=== PATIENT | female | born 1985 | race Caucasian/White ===

== ENCOUNTER 2018-09-12 16:46 | Emergency (ER) | payer BC, SELFPAY ==
[2018-09-12 16:47] VITALS: BP 156/80; PULSE 112; RESP 16; TEMP 36.3; O2SAT 98; BMI 26.0
--- NOTE | 2018-09-12 17:57 | ED.DCSUM_ITS ---
- ER Visit Summary Date of Service: 09/12/18 Chief Complaint: Food impaction History of Present Illness: The patient is a 33 F presenting for evaluation due to an esophageal food impaction. Patient reports that last night she was eating some meat, and at about 9 PM she felt as if it became impacted in her esophagus. Patient states that she tried drinking large amounts of pop, and multiple other home remedies and this has not been able to be alleviated. She reports that she is able to tolerate fluids and her saliva but she is not able to eat anything as she immediately vomits it back up. Patient reports that she had an episode about 2 months ago that spontaneously resolved. She has had to have endoscopies in the past as well as dilation of her cardiac sphincter. Physical Examination: Vital signs are within normal limits, patient is afebrile. General: Patient is well-nourished well-developed and in no acute distress. Head: Normocephalic, atraumatic Eyes: Pupils equal round and reactive bilaterally, extra occular motion intact bialterally ENT: Moist mucous membranes Neck: Supple, no lymphadenopathy, no JVD, no meningismus CVS: Heart regular rate and rhythm, no murmurs, rubs or gallops, radial pulses 2+ bilaterally Resp: Respirations nondistressed, lung sounds clear bilaterally Abdomen: Soft, nontender, nondistended, no palpable masses, normal bowel sounds Back: Nontender Extremities: Nontender, atraumatic, active full range of motion, no peripheral edema Skin: warm, no rashes, no petechia Neuro: Alert and oriented x 4, CN 2-12 intact, no lateralizing neurological defecits Psyc: Normal affect Test Results: None indicated Emergency Department Course and Treatment: Patient presented for evaluation secondary to a esophageal food impaction. I attempted to have the patient drink roni keren as well as tried glucagon x2 and was unable to alleviate her impaction. Patient is able to take small sips of fluid, but anytime she takes anything more than that she has vomiting. I do believe that she requires retrieval. I discussed this with Dr. Mena who states that given the fact that the patient has a history of stricture he is uncomfortable with treating the patient at this facility. I discussed the patient with [facility] who declined to accept the patient. I discussed the patient with [facility] who did accept the patient. Patient will be transferred by private vehicle. Disposition: Transfer Impression: 1. Esophageal food impaction This note was generated with Submittable dictation software. It may contain incorrect words, spelling, and punctuation that were not noted in review of the chart prior to signing ED Disposition - Plan for ED Patient: Chief Complaint: Foreign Body Referrals: Omid Gar MD [Primary Care Provider] -
[2018-09-12] MEDS: Glucagon 1 MG/ML Syringe IV ×2 (18:01→19:19)
[2018-09-12 20:52] VITALS: BP 126/86; PULSE 94; RESP 16; O2SAT 99
== END 2018-09-12 21:08 | disposition short-term general hospital (02) ==
PROVIDERS: Emergency Provider Emergency Medicine; Family Provider Family Medicine; PCP Family Medicine
DX: T18.128A Food in esophagus causing other injury, initial encounter (principal)
CPT/HCPCS: 96374; 96376; 99283; A4216; J1610

== ENCOUNTER → 2020-03-05 15:01 | Outpatient (CLI) | payer BC, SELFPAY ==
--- NOTE | 2020-03-05 15:04 | RAD_ITS ---
STUDY: X-RAY CHEST REASON FOR EXAM: Female, 34 years old. Left anterior lower chest pain x 4 weeks TECHNIQUE: PA and lateral views of the chest. COMPARISON: October 24, 2010, March 04, 2013 and January 14, 2016 FINDINGS: There is no new focal consolidation. Normal size heart. Normal mediastinum and malcolm. Normal visualized pulmonary arteries. Normal visualized aortic arch and descending thoracic aorta. Normal visualized thoracic spine. Normal visualized ribs, clavicles, and shoulders. There is no demonstrated abnormality of the visualized soft tissue structures of the upper abdomen. RAD/Chest PA and Lateral IMPRESSION: No acute cardiopulmonary process. Electronically Signed: Mary Howard MD at 16:57 EDT Tel , Service support ,
== END ==
PROVIDERS: PCP Family Medicine; Referring Provider Family Medicine; Visit Provider Family Medicine
DX: R07.9 Chest pain, unspecified (principal)
CPT/HCPCS: 71046

== ENCOUNTER 2020-11-25 23:12 | Emergency (ER) | payer BC, SELFPAY ==
[2020-11-25 23:13] VITALS: BP 119/39; PULSE 112; RESP 18; TEMP 36.1; O2SAT 98; BMI 27.4
--- NOTE | 2020-11-25 23:29 | EKG12_ITS ---
Test Reason : DYSRHYTHMIA Blood Pressure : / mmHG Vent. Rate : 095 BPM Atrial Rate : 095 BPM P-R Int : 148 ms QRS Dur : 084 ms QT Int : 346 ms P-R-T Axes : 055 060 043 degrees QTc Int : 434 ms Normal sinus rhythm Nonspecific ST abnormality Abnormal ECG Confirmed by STEPH ALARCON, JOSEPH ([id number]), managing editor MAR FERRARI ([id number]) on 11/27/2020 8:27:54 AM Referred By: Confirmed By:JOSEPH CHOI MD
--- NOTE | 2020-11-25 23:33 | ED.DCSUM_ITS ---
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 She had an episode of chest pain that she noted this morning upon awakening. Pain was midsternal and described as an aching sensation with no associated symptoms or radiation. Duration of pain was 15 minutes this evening she had several episodes of sharp left parasternal discomfort. Initially there was no associated symptoms. Upon reflecting patient states she felt nauseous and attributed to her anxiety. She states she is very anxious. She is concerned this is her heart. She denies fever, chills night sweats. She denies heartburn or indigestion. She denies food intolerance. The pain is not precipitated by anything nor is it exacerbated by anything. She denies black or maroon stool. She does have history of GERD. She denies history of PE or DVT. She is on no hormonal therapy. Prior similar symptoms: Yes Recent Illness/Hospitalization: No - Past Medical History (1) History of gastroesophageal reflux (GERD) Status: Acute (2) History of anxiety Status: Acute Past Medical History - Allergies and Home Meds Allergies/Adverse Reactions: Allergies amoxicillin trihydrate [From Augmentin] Adverse Reaction (Verified 11/25/20 23:16) Diarrhea potassium clavulanate [From Augmentin] Adverse Reaction (Verified 11/25/20 23:16) Diarrhea Primary Care Physician: Huber Pompa MD [Primary Care Provider] - Prior records reviewed: Yes Surgical History: noncontributory Lives: Spouse/ Significant Other Smoking Status: Former smoker Alcohol: None Drugs: None Review of Systems General: Denies: Chills, Fever, Malaise, Subjective, Sweats Eyes: Denies: Visual changes - bilaterally, Blurred Vision - bilaterally ENT: Denies: Bilateral ear pain, Rhinorrhea, Sore throat Cardiovascular: Reports: Chest pain. Denies: Palpitations, Heart racing Respiratory: Denies: Dyspnea, Cough, Dyspnea on exertion, Orthopnea, Paroxysmal nocturnal dyspnea Gastrointestinal: Reports: Nausea. Denies: Abdominal pain, Vomiting, Diarrhea, Melena, Hematochezia Genitourinary: Denies: Dysuria, Hematuria, Frequency Musculoskeletal: Denies: Myalgias, Arthralgias, Neck pain, Back pain, Swelling, Extremity Pain Skin: Denies: Rash, Wounds Neurological: Denies: Headache, Weakness, Numbness Psych: Reports: Anxiety. Denies: Depression Physical Exam Vital Signs/Narrative: Vital Signs Temp Pulse Resp BP Pulse Ox 11/25/20 23:13 97.0 F L 112 H 18 119/39 L 98 Inital Vital Signs reviewed: Yes General: Well nourished, Well developed, Acute Distress - Tearful and anxious Head: Normocephalic, Atraumatic Eyes: Perrl, EOMI. Negative for: Pale conjunctiva, Scleral icterus ENT: Moist mucous membranes, No rhinorrhea Neck: Supple, Nontender, No lymphadenopathy, No JVD Cardiovascular: Regular rate, Regular rhythm, No murmurs, Normal S1, Normal S2 Respiratory: No distress, CTA bilaterally, Chest nontender Abdomen: Soft, Nontender, Nondistended, Normal bowel sounds, No masses Back: Nontender, Normal Inspection Extremities: Nontender, No edema, - - There is no asymmetry, swelling, discoloration, leg vein distention, palpable cords or tenderness along the distribution of the deep venous system. Skin: Normal color, No rash, No Trauma. Negative for: Cyanosis, Diaphoresis, Jaundice Neurological: Alert, Oriented x3, Cranial nerves II-XII grossly intact, Normal Strength, Normal Sensation Psychological: Tearful, - - Affect is blunted and at times labile, becomes tearful and states I am anxious . Diagnostic/Tx/Re-eval Laboratory Results 11/25/20 23:40 Troponin I < 0.015 - EKG Initial EKG Interpretation: Sinus Rhythm - Normal sinus rhythm with a ventricular rate of 95. W[place] interval is 148 ms. QRS duration 84 ms. QT duration 346 ms. [place] is normal. - Medical Decision Making Differential diagnosis would include reflux, chest pain of unknown etiology, cardiac chest pain and anxiety. Will obtain EKG. Patient is not tachycardic and is PERC negative. Therefore, D-dimer was not obtained. Troponin was obtained. Patient is nervous that this is her heart. She was informed that an EKG would will be done as well as troponin. If these 2 are negative with a heart score of 0 that this essentially rules out cardiac etiology. There is no family history. She has no risk factors. ED Disposition - Plan for ED Patient: Disposition: Home or Assisted Living Diagnosis: Non-cardiac chest pain, Anxiety reaction Instructions: ED Chest Pain, Noncardiac Referrals: Huber Pompa MD [Primary Care Provider] - As Needed
[2020-11-26 00:21] VITALS: BP 111/69; PULSE 80; RESP 16; O2SAT 99
== END 2020-11-26 00:27 | disposition home or self-care (01) ==
PROVIDERS: Emergency Provider Emergency Medicine; PCP Family Medicine
DX: R07.2 Precordial pain (principal); F41.1 Generalized anxiety disorder; K21.9 Gastro-esophageal reflux disease without esophagitis; Z87.891 Personal history of nicotine dependence
CPT/HCPCS: 84484; 93005; 99284; A4216

== ENCOUNTER → 2021-02-15 09:47 | Outpatient (CLI) | payer BC, SELFPAY ==
[2021-02-15 12:31] LABS: AST(SGOT) 13 U/L (15-37); Alanine Aminotransfer ALT/SGPT 17 U/L (13-56); Albumin, Serum 3.6 g/dL (3.2-5.0); Alkaline Phosphatase 51 U/L (45-117); Anion Gap 4 (5-15); BUN 9 mg/dL (7-18); BUN/Creat Ratio 12.5 RATIO (10-20); Calcium,Total 8.7 mg/dL (8.5-10.1); Chloride 107 mmol/L (98-107); Cholesterol 362 mg/dL (200); Creatinine, Serum 0.72 mg/dL (0.55-1.02); EST Glomerular Filtration Rate 98 mL/min (>60); Est Glom Filt Rate - Afr Amer 118 mL/min (>60); Globulin 3.6 g/dL (2.2-4.2); Glucose 85 mg/dL (74-106); High Density Lipoprotein 48 mg/dL; Potassium 3.7 mmol/L (3.5-5.1); Protein, Total 7.2 g/dL (6.4-8.2); Sodium Level 139 mmol/L (136-145); Thyroid Stim Hormone (TSH) 1.42 uIU/mL (0.358-3.74); Triglycerides 70 mg/dL; Very Low Density Lipoprotein 14 mg/dL (5-40)
== END ==
PROVIDERS: PCP Family Medicine; Referring Provider Family Medicine; Visit Provider Family Medicine
DX: I10 Essential (primary) hypertension (principal); R73.02 Impaired glucose tolerance (oral); E78.00 Pure hypercholesterolemia, unspecified; E55.9 Vitamin D deficiency, unspecified; E66.9 Obesity, unspecified
CPT/HCPCS: 36415; 80053; 80061; 84443

== ENCOUNTER 2021-03-24 16:57 | Emergency (ER) | payer BC, SELFPAY ==
[2021-03-24 16:58] VITALS: BP 151/139; PULSE 100; RESP 16; TEMP 36.1; O2SAT 99; BMI 26.5
--- NOTE | 2021-03-24 17:21 | CT_ITS ---
INDICATION: Kidney Stone; L flank pain EXAMINATION: CT Abdomen And Pelvis W/O Contrast Injection TECHNIQUE: Helically acquired images were obtained of the abdomen and pelvis without the use of IV contrast. A radiation dose optimization technique was used for this scan. Oral contrast: None. COMPARISON: 01/28/2015 FINDINGS: Evaluation of the solid organs and vascular structures is limited without intravenous contrast. Visualized lung bases: Unremarkable Liver: Unremarkable Gallbladder: Unremarkable Spleen: Unremarkable Pancreas: Unremarkable Adrenal Glands: Unremarkable Kidneys: Subtle hyperattenuation of the bilateral renal medullas. Few bilateral 1 mm nonobstructing stones. No hydronephrosis. Vasculature: Unremarkable GI Tract: Unremarkable Lymphadenopathy: None Peritoneum: No ascites. Bladder: Unremarkable Reproductive organs: Bilateral tubal ligations. Retroverted uterus. Bones/Soft tissues: No suspicious osseous or soft tissue lesions CT/Abdomen/Pelvis without Cont IMPRESSION: Few bilateral 1 mm nonobstructing stones. No hydronephrosis. Subtle hyperattenuation of the bilateral renal medullas could be an indicator of medullary nephrocalcinosis. Electronically Signed: Delta Hector MD at 18:49 EDT Tel , Service support ,
--- NOTE | 2021-03-24 17:22 | EDS_ITS ---
HPI HPI - GI History of Present Illness Chief Complaint: Nausea/Vomiting Informant: patient Abdominal Pain/Flank Pain Onset: Today Context: Sudden Onset Timing: Continuous and Waxes and wanes Quality: Aching Location: Left Flank Current Severity: 02/27 Maximum Severity: Moderate Worsened by: Nothing; Not Worsened By Movement Relieved by: Nothing Nausea/Vomiting/Emesis GI Symptom: Positive for Nausea and Vomiting Onset: Weeks (1) Quality: Positive for Nonbilious Severity: Mild (w/r/t vtg; mostly nauseated) Diarrhea/Melena/Hematochezia GI Symptom: Negative for Diarrhea, Melena and Hematochezia Associated Symptoms Associated Symptoms: Negative for Dysuria, Frequency, Hematuria and Urgency Narrative Narrative: Patient states she ran out of her reflux medication about 3 weeks ago, a week ago she started feeling nauseated and was able to get her reflux me dication again and start taking it, she has been feeling epigastric burning from time to time and taking Tums which has been helping that. Today she started having pain in her left low back without radiation that is fairly prominent all of a sudden, she has had a kidney stone in the past but unsure if this is related or similar. She was resting at the time when it started. She denies any overuse of the muscles in this area or injury that could obviously explain this. [facility] Medical History (Updated 03/24/21 @ 19:[address] Bart Cifuentes MD) Anxiety Carpal tunnel syndrome Former smoker GERD (gastroesophageal reflux disease) Hyperlipemia Kidney stone Home Medications escitalopram oxalate 10 mg PO DAILY 11/25/20 [History Last Taken Unknown] pantoprazole 40 mg PO DAILY 11/25/20 [History Last Taken Unknown] sumatriptan succinate 50 mg PO PRN PRN 11/25/20 [History Last Taken Unknown] promethazine 25 mg PO Q6H PRN #20 tab 03/24/21 [Rx Last Taken Unknown] Allergy/AdvReac Type Severity Reaction Status Date / Time amoxicillin trihydrate AdvReac Diarrhea Verified 03/24/21 17:00 [From Augmentin] potassium clavulanate AdvReac Diarrhea Verified 03/24/21 17:00 [From Augmentin] Surgical History History of Social History Smoking Status: Former smoker ROS ROS ED Constitutional Constitutional ED: Denies chills or fever(s) Eyes Eyes: Denies change in vision or diplopia ENT ENT ED: Denies rhinorrhea or sore throat Cardiovascular Cardiovascular: Denies chest pain or palpitations Respiratory/Chest Respiratory/Chest: Denies cough or dyspnea Gastrointestinal Gastrointestinal: Reports abdominal pain, nausea and vomiting; Denies diarrhea Genitourinary Genitourinary ED: Reports low back pain; Denies difficulty urinating, dysuria or hematuria Musculoskeletal Musculoskeletal: Reports back pain; Denies neck pain Integumentary Denies abscess or rash Neurologic Neurologic: Denies headache(s), paresthesias or weakness Psychiatric Psychiatric: Denies anxiety or suicidal thoughts EXAM Physical Exam Const Vital Signs: 03/24/21 16:58 Temperature 97 F L Temperature Source Temporal Pulse Rate 100 Respiratory Rate 16 Blood Pressure 151/139 H Blood Pressure Mean 143 Pulse Ox 99 Oxygen Delivery Method Room Air Positive well nourished and well developed General Appearance ED: well developed and NAD HEENT Reports moist mucous membranes normocephalic and atraumatic Eyes PERRL and EOMs intact bilaterally Neck full ROM and supple Resp normal respiratory effort and clear to auscultation bilaterally Cardio regular rate, regular rhythm and no murmurs GI non-distended Auscultation: normoactive bowel sounds Palpation: soft and tender epigastric (Mildly. No other tenderness.) Back/Spine no CVA tenderness General Back: other FROM Extremity normal to inspection General Extremety ED: Negative for edema, pulses abnormal or tenderness General Extremity: Negative for edema or pulses abnormal Neuro oriented x3, CN's II-XII intact bilaterally and no sensory deficits noted Sensorium / Orientation: awake and alert Motor Exam: strength 5/5 throughout Skin no rashes or lesions noted and no wounds MDM MDM MDM Narrative Medical decision making narrative: CT as below, nonobstructing stones bilaterally. It is possible that her low back pain is musculoskeletal. No acute abnormalities on CT or obstructing stones or hydronephrosis. Urinalysis negative, ruling out infectious etiologies, patient was treated here with analgesics and is feeling better, will prescribe her some antiemetics and advise close outpatient follow-up and continue her PPI. Lab Data Attestation: I reviewed the patient's lab results. Labs: Laboratory Results - last 24 hr 03/24/21 03/24/21 03/24/21 17:35 17:35 17:35 WBC 5.2 RBC 4.00 L Hgb 12.1 Hct 36.7 L MCV 91.8 MCH 30.3 MCHC 33.0 RDW Std Deviation 44.7 H RDW Coeff of Autumn 13.2 Plt Count 237 MPV 11.1 Immature Gran % (Auto) 0.200 Neut % (Auto) 65.2 Lymph % (Auto) 24.8 [place] % (Auto) 8.8 Eos % (Auto) 0.6 Baso % (Auto) 0.4 Absolute Neuts (auto) 3.4 Absolute Lymphs (auto) 1.30 Nucleated RBC % 0 Sodium 138 Potassium 3.5 Chloride 105 Carbon Dioxide 28.0 Anion Gap 5 BUN 7 Creatinine 0.70 Estim Creat Clear Calc 92.79 Est GFR (MDRD) Af Amer 123 Est GFR (MDRD) Non-Af 102 BUN/Creatinine Ratio 10.1 Glucose 95 Calcium 9.4 Serum , Qual NEGATIVE Urine Color Urine Clarity Urine pH Ur Specific [place] Urine Protein Urine Glucose (UA) Urine Ketones Urine Occult Blood Urine Nitrite Urine Bilirubin Urine Urobilinogen Ur Leukocyte Esterase Urine RBC Urine WBC Ur Squamous Epith Cells Urine Bacteria Urine Mucus 03/24/21 19:42 WBC RBC Hgb Hct MCV MCH MCHC RDW Std Deviation RDW Coeff of [place] Plt Count MPV Immature Gran % (Auto) Neut % (Auto) Lymph % (Auto) [place] % (Auto) Eos % (Auto) Baso % (Auto) Absolute Neuts (auto) Absolute Lymphs (auto) Nucleated RBC % Sodium Potassium Chloride Carbon Dioxide Anion Gap BUN Creatinine Estim Creat Clear Calc Est GFR (MDRD) Af Amer Est GFR (MDRD) Non-Af BUN/Creatinine Ratio Glucose Calcium Serum , Qual Urine Color Yellow Urine Clarity Clear Urine pH 6.5 Ur Specific [place] 1.010 Urine Protein Negative Urine Glucose (UA) Normal Urine Ketones 50 H Urine Occult Blood Negative Urine Nitrite Negative Urine Bilirubin Negative Urine Urobilinogen Normal Ur Leukocyte Esterase Negative Urine RBC 0 SEEN Urine WBC 0 SEEN Ur Squamous Epith Cells 0-5 SEEN Urine Bacteria 0 SEEN Urine Mucus 0 SEEN Radiography Diagnostic Testing: Radiology Impression Abdomen/Pelvis CT 03/24/21 17:21 IMPRESSION: Few bilateral 1 mm nonobstructing stones. No hydronephrosis. Subtle hyperattenuation of the bilateral renal medullas could be an indicator of medullary nephrocalcinosis. Electronically Signed: Delta Hector MD at 18:49 EDT Tel , Service support , Discharge Plan Triage Chief Complaint: Nausea/Vomiting ED Provider: Bart Cifuentes Dx/Rx/DC Orders Clinical Impression: Acute left-sided low back pain, History of gastroesophageal reflux (GERD), Bilateral nephrolithiasis, Epigastric abdominal pain Instructions: ED Epigastric Pain (Uncertain Cause) Prescriptions: New promethazine 25 mg tablet 25 mg PO Q6H PRN (Reason: nausea and vomiting) Qty: 20 RF: 0 No Action sumatriptan succinate 50 MG tablet 50 mg PO PRN PRN (Reason: Migraine Symptoms) RF: 0 pantoprazole 40 MG tablet 40 mg PO DAILY RF: 0 escitalopram oxalate 10 MG tablet 10 mg PO DAILY RF: 0 Primary Care Provider: Huber Pompa Referrals: Huber Pompa MD [Primary Care Provider] - 3-5 Days if not improving Disposition Disposition: Home, self care
[2021-03-24] MEDS: 0.9% Normal Saline 1,000 ML 250 ML IV (17:31)
[2021-03-24] MEDS: Ondansetron 4 MG/2 ML Vial IV (17:41)
[2021-03-24] MEDS: Ketorolac 15 MG/ML Vial IV (17:41)
[2021-03-24 17:48] LABS: Absolute Neutrophil Count 3.4 X10^3/uL (2.0-7.7); Basophil# 0.02 X10^3/uL; Basophil% 0.4 % (0-1); Eosinophil# 0.03 X10^3/uL; Eosinophils% 0.6 % (0-5); Hematocrit 36.7 % (37-47); Hemoglobin 12.1 g/dL (12.0-15.0); Lymphocyte % 24.8 % (19-41); Mean Corpuscular Hgb 30.3 pg (27.0-32.0); Mean Corpuscular Volume 91.8 fL (81-99); Mean Platelet Vol. 11.1 fl (6.2-12.0); Monocyte# 0.46 X10^3/uL; Monocyte% 8.8 % (0-10); NRBC Flagged by Analyzer 0 % (0-5); Neutrophil # 3.42 X10^3/uL (2.7-7.7); Neutrophil % 65.2 % (47-70); Platelet Count 237 K/mm3 (150-450); RBC Distribution Width CV 13.2 % (11.6-14.6); RBC Distribution Width SD 44.7 fl (35.1-43.9); White Blood Count 5.2 K/mm3 (4.4-11.0)
[2021-03-24 18:03] LABS: Anion Gap 5 (5-15); BUN 7 mg/dL (7-18); BUN/Creat Ratio 10.1 RATIO (10-20); Calcium,Total 9.4 mg/dL (8.5-10.1); Chloride 105 mmol/L (98-107); EST Glomerular Filtration Rate 102 mL/min (>60); Est Glom Filt Rate - Afr Amer 123 mL/min (>60); Estimated Creatinine Clearance 92.79 ml/min; Glucose 95 mg/dL (74-106); Potassium 3.5 mmol/L (3.5-5.1); Sodium Level 138 mmol/L (136-145)
[2021-03-24 18:08] LABS: Internal QC Validated? YES +Cl - CLEAR BKGD; Pregnancy, Serum, hCG Quali. NEGATIVE Negative
[2021-03-24 19:48] LABS: Bacteria 0 SEEN /hpf (None Seen); Mucous, Urine 0 SEEN /hpf (<or=2+); Red Blood Cells-Urine 0 SEEN /hpf (0-5); White Blood Cells 0 SEEN /hpf (0-5)
[2021-03-24 19:51] LABS: Color, Urine Yellow (Yellow); Glucose, Dipstick Normal (Normal); Ketone-Dipstick 50 mg/dl (Negative); Leukocyte Esterase-Dipstick Negative /ul (Negative); Nitrite-Dipstick Negative (Negative); Occult Blood-Urine Negative /ul (Negative); Protein-Dipstick Negative (Negative); Urine Bilirubin Dipstick Negative (Negative); Urine Clarity Clear (Clear); Urine Urobilinogen Normal (Normal); Urine pH 6.5 (5.0 - 8.0)
[2021-03-24 20:04] LABS: Squamous Epithelial Cells - UA 0-5 SEEN /hpf (5-10)
[2021-03-24 20:42] VITALS: BP 132/71; PULSE 92; RESP 16; O2SAT 99
== END 2021-03-24 20:43 | disposition home or self-care (01) ==
PROVIDERS: Emergency Provider Emergency Medicine; PCP Family Medicine
DX: M54.5 Low back pain (principal); N20.0 Calculus of kidney; K21.9 Gastro-esophageal reflux disease without esophagitis; Z87.442 Personal history of urinary calculi; Z87.891 Personal history of nicotine dependence
CPT/HCPCS: 74176; 80048; 81001; 84703; 85025; 96361; 96374; 96375; 99284; J7030; A4216; J2405

== ENCOUNTER → 2021-03-29 09:13 | Outpatient (CLI) | payer BC, SELFPAY ==
[2021-03-24 16:58] VITALS: BMI 26.5
[2021-03-29 09:59] LABS: Hematocrit 36.9 % (37-47); Hemoglobin 12.2 g/dL (12.0-15.0); Mean Corp Hgb Conc 33.1 g/dL (32-36); Mean Corpuscular Hgb 30.8 pg (27.0-32.0); Mean Corpuscular Volume 93.2 fL (81-99); Mean Platelet Vol. 11.4 fl (6.2-12.0); Platelet Count 232 K/mm3 (150-450); RBC Distribution Width CV 13.1 % (11.6-14.6); RBC Distribution Width SD 44.8 fl (35.1-43.9); Red Blood Count 3.96 M/mm3 (4.2-5.4); White Blood Count 4.7 K/mm3 (4.4-11.0)
[2021-03-29 11:11] LABS: Cholesterol 314 mg/dL (200); Ferritin 7 ng/mL (8-252); High Density Lipoprotein 44 mg/dL; Iron 127 ug/dL (50-170); Triglycerides 94 mg/dL; Very Low Density Lipoprotein 19 mg/dL (5-40)
== END ==
PROVIDERS: PCP Family Medicine; Referring Provider Family Medicine; Visit Provider Family Medicine
DX: D64.9 Anemia, unspecified (principal); E78.5 Hyperlipidemia, unspecified
CPT/HCPCS: 36415; 80061; 82728; 83540; 85027

== ENCOUNTER 2021-04-10 15:48 | Emergency (ER) | payer BC, SELFPAY ==
[2021-04-10 15:49] VITALS: BP 129/91; PULSE 134; RESP 16; TEMP 36.8; O2SAT 95; BMI 25.2
--- NOTE | 2021-04-10 16:17 | EKG12_ITS ---
Test Reason : PALPTATIONS Blood Pressure : / mmHG Vent. Rate : 102 BPM Atrial Rate : 102 BPM P-R Int : 142 ms QRS Dur : 062 ms QT Int : 316 ms P-R-T Axes : 074 077 056 degrees QTc Int : 411 ms Sinus tachycardia Septal infarct , age undetermined Abnormal ECG Confirmed by JOAQUINA ALARCON, SHAMIKA ([id number]), book editor MAR FERRARI ([id number]) on 04/13/2021 9:36:02 AM Referred By: Confirmed By:SHAMIKA KUNZ MD
--- NOTE | 2021-04-10 16:18 | EDS_ITS ---
HPI History of Present Illness Chief Complaint: Palpitations Detail of Chief Complaint: Patient with complaint of heart racing that started around 11:00 Informant: patient Narrative Narrative: Patient states that she has a history of anxiety and had a panic attack that started around 11 AM. Patient states that she still feels like her heart racing. She has some discomfort in her chest that she attributes to her anxiety episode. Patient is on Lexapro daily but feels over the last 6 months has had increased episodes of anxiety. She does not think she is under any more stress than usual. She denies recent travel or surgery. No history of PE or DVT. Prior similar symptoms: Yes PFSH [facility] Medical History (Updated 04/10/21 @ 18:[address] Matt Buchanan, DO) Anxiety Carpal tunnel syndrome Former smoker GERD (gastroesophageal reflux disease) Hyperlipemia Kidney stone Home Medications escitalopram oxalate 10 mg PO DAILY 11/25/20 [History Last Taken Unknown] pantoprazole 40 mg PO DAILY 11/25/20 [History Last Taken Unknown] sumatriptan succinate 50 mg PO PRN PRN 11/25/20 [History Last Taken Unknown] promethazine 25 mg PO Q6H PRN #20 tab 03/24/21 [Rx Last Taken Unknown] lorazepam [Ativan] 1 mg PO TID PRN #10 tab 04/10/21 [Rx Last Taken Unknown] Allergy/AdvReac Type Severity Reaction Status Date / Time amoxicillin trihydrate AdvReac Diarrhea Verified 04/10/21 15:48 [From Augmentin] potassium clavulanate AdvReac Diarrhea Verified 04/10/21 15:48 [From Augmentin] Surgical History History of Social History Smoking Status: Former smoker ROS ROS ED Constitutional Constitutional ED: Reports systems reviewed and no addt'l complaints, except as documented; Denies body ache(s), change in weight or chills Eyes Eyes: Denies acute decrease in peripheral vision, change in vision, double vision or loss of vision ENT ENT ED: Reports none; Denies ear pain, lip swelling, loss taste/smell, neck pain, otalgia or sore throat Cardiovascular Cardiovascular: Reports none, chest pain, palpitations and racing heartbeat; Denies abdominal pain, chest pain with activity, leg edema, lightheadedness, rapid heart rate or syncope Respiratory/Chest Respiratory/Chest: Reports none; Denies change in mental status, dry cough, dyspnea, hemoptysis, shortness of breath at rest or shortness of breath with ex ertion Gastrointestinal Gastrointestinal: Reports none; Denies abdominal pain, change in stool characte r, diarrhea, hematemesis, hematochezia, melena, rectal bleeding or vomiting Genitourinary Genitourinary ED: Reports none; Denies abdominal discomfort, anuria, dysuria, genital pain or polyuria Musculoskeletal Musculoskeletal: Reports none; Denies arthralgias, back pain, difficulty walking, extremity pain, muscle weakness or myalgias Integumentary Reports none; Denies abscess or rash Neurologic Neurologic: Reports none; Denies abnormal gait, confusion, focal weakness, frequent falls, headache(s), loss of vision, numbness, paresthesias, radicular pain, vertigo or weakness Psychiatric Psychiatric: Reports systems reviewed and no addt'l complaints, except as documented and none; Denies behavioral changes, confusion, difficulty concen trating, hallucinations, suicidal ideation, tactile hallucinations or visual hallucinations Endocrine Endocrinology: Denies none, cold intolerance, excessive sweating, fatigue or heat intolerance Hematologic/Lymphatic Hematologic/Lymphatic: Reports none; Denies anemia, easy bleeding or easy bruising Allergic/Immunologic Allergic/Immunologic ED: Denies as per HPI, none, lip swelling, mouth swelling, throat swelling, tongue swelling or hives EXAM Physical Exam Const Vital Signs: 04/10/21 15:49 04/10/21 16:48 Temperature 98.2 F Temperature Source Temporal Pulse Rate 134 H Respiratory Rate 16 Respiratory Effort Normal Respiratory Pattern Normal Blood Pressure 129/91 H Blood Pressure Mean 103 Pulse Ox 95 Oxygen Delivery Method Room Air Positive well nourished and well developed General Appearance ED: well developed and NAD HEENT Reports TM's clear and moist mucous membranes normocephalic and atraumatic; Negative for trauma or tenderness Tympanic Membrane ED: Yes TM's clear Eyes PERRL and EOMs intact bilaterally General Eye ED: Negative for pale conjunctiva or scleral icterus Neck no lymphadenopathy, supple and no JVD General: Negative for tenderness Chest Wall inspection of chest normal and palpation of chest normal Chest: Negative for tenderness Resp normal respiratory effort and clear to auscultation bilaterally Effort and Inspection: Negative for respiratory distress or pain with movement Auscultation: Negative for rhonchi, wheezes or diminished lung sounds Cardio regular rhythm, S1 normal heart sound, S2 normal heart sound and no murmurs Rate: tachycardic Peripheral Pulses: pulses 2+ throughout GI normal to inspection, nondistended, normoactive bowel sounds, soft to palpation, non-tender, non-distended and no masses Back/Spine no CVA tenderness and no thoracic nor lumbar tenderness Extremity normal to inspection General Extremety ED: Negative for edema General Extremity: Negative for edema Neuro oriented x3, CN's II-XII intact bilaterally, no sensory deficits noted and gait normal Sensorium / Orientation: awake, alert, oriented to person, oriented to place and oriented to time Motor Exam: strength 5/5 throughout and strength abnormal Psych mental status grossly normal Skin no rashes or lesions noted and no wounds MDM MDM MDM Narrative Medical decision making narrative: Patient was medicated with Ativan 1 mg IV and she did feel symptomatically improved afterwards. At rest her heart rates in the 80s and 90s. At this time I suspect likely anxiety is etiology of her symptomatology. I will send off a TSH before she leaves. Patient advised to follow-up with her primary care physician within next 3 to 5 days. Patient will be given a prescription for as needed Ativan. Lab Data Attestation: I reviewed the patient's lab results. Labs: Laboratory Results - last 24 hr 04/10/21 04/10/21 04/10/21 16:22 16:22 16:22 WBC 8.0 RBC 4.12 L Hgb 12.7 Hct 37.6 MCV 91.3 MCH 30.8 MCHC 33.8 RDW Std Deviation 43.4 RDW Coeff of Autumn 13.0 Plt Count 311 MPV 10.8 Immature Gran % (Auto) 0.300 Neut % (Auto) 84.5 H Lymph % (Auto) 10.8 L Trinity % (Auto) 3.9 Eos % (Auto) 0.1 Baso % (Auto) 0.4 Absolute Neuts (auto) 6.8 Absolute Lymphs (auto) 0.86 Nucleated RBC % 0 Differential Comment SCANNED Plt Morphology Comment GIANT D-Dimer Quant (PE/DVT) 0.72 H* Sodium 139 Potassium 3.4 L Chloride 105 Carbon Dioxide 26.0 Anion Gap 8 BUN 5 L Creatinine 0.78 Estim Creat Clear Calc 86.10 Est GFR (MDRD) Af Amer 107 Est GFR (MDRD) Non-Af 89 BUN/Creatinine Ratio 6.4 L Glucose 105 Calcium 9.5 Radiography Diagnostic Testing: Radiology Impression Chest X-Ray 04/10/21 16:41 IMPRESSION: Nonacute portable x-ray examination of the chest. Electronically Signed: Rick Correa MD ([place]) at 17:05 EDT , Service support , Chest CTA 04/10/21 16:57 IMPRESSION: Negative CTA chest. Electronically Signed: Rick Correa MD ([place]) at 17:41 EDT , Service support , By myself as no acute disease process. Radiology in agreement. There is no evidence of pneumothorax or pneumomediastinum. No infiltrate. EKG Initial EKG: Comments: Sinus tachycardia with a ventricular rate of 102 bpm with no acute ST segment changes noted. Discharge Plan Triage Chief Complaint: Palpitations ED Provider: Matt Buchanan Dx/Rx/DC Orders Clinical Impression: Anxiety Instructions: ED Anxiety Reaction Prescriptions: New lorazepam [Ativan] 1 mg tablet 1 mg PO TID PRN (Reason: anxiety) Qty: 10 RF: 0 No Action sumatriptan succinate 50 MG tablet 50 mg PO PRN PRN (Reason: Migraine Symptoms) RF: 0 pantoprazole 40 MG tablet 40 mg PO DAILY RF: 0 escitalopram oxalate 10 MG tablet 10 mg PO DAILY RF: 0 promethazine 25 mg tablet 25 mg PO Q6H PRN (Reason: nausea and vomiting) Qty: 20 RF: 0 Primary Care Provider: Huber Pompa Referrals: Huber Pompa MD [Primary Care Provider] - 3-5 Days
[2021-04-10] MEDS: 0.9% Normal Saline 1,000 ML 150 ML IV (16:31)
[2021-04-10] MEDS: LORazepam 2 MG/ML Syringe 1 MG IV (16:31)
[2021-04-10 16:34] LABS: Absolute Lymphocyte Count 0.86 X10^3/uL (0.83-4.51); Absolute Neutrophil Count 6.8 X10^3/uL (2.0-7.7); Basophil# 0.03 X10^3/uL; Basophil% 0.4 % (0-1); Eosinophil# 0.01 X10^3/uL; Eosinophils% 0.1 % (0-5); Hematocrit 37.6 % (37-47); Hemoglobin 12.7 g/dL (12.0-15.0); Lymphocyte # 0.86 X10^3/ul (0.83-4.51); Lymphocyte % 10.8 % (19-41); Mean Corp Hgb Conc 33.8 g/dL (32-36); Mean Corpuscular Hgb 30.8 pg (27.0-32.0); Mean Corpuscular Volume 91.3 fL (81-99); Mean Platelet Vol. 10.8 fl (6.2-12.0); Monocyte# 0.31 X10^3/uL; Monocyte% 3.9 % (0-10); NRBC Flagged by Analyzer 0 % (0-5); Neutrophil # 6.77 X10^3/uL (2.7-7.7); Neutrophil % 84.5 % (47-70); POSITIVE MORPHOLOGY YES; Platelet Count 311 K/mm3 (150-450); RBC Distribution Width SD 43.4 fl (35.1-43.9); Red Blood Count 4.12 M/mm3 (4.2-5.4)
--- NOTE | 2021-04-10 16:41 | RAD_ITS ---
STUDY: X-RAY CHEST REASON FOR EXAM: Female, 36 years old. chest pain, tachycardia TECHNIQUE: AP COMPARISON: 03/05/2020 FINDINGS: The lungs are clear and expanded. There is no demonstrated pleural abnormality. Normal size heart. Normal mediastinum and malcolm. Normal visualized pulmonary arteries. Normal visualized aortic arch and descending thoracic aorta. Normal visualized thoracic spine. Normal visualized ribs, clavicles, and shoulders. There is no demonstrated abnormality of the visualized soft tissue structures of the upper abdomen. RAD/Chest 1 View (Portable) IMPRESSION: Nonacute portable x-ray examination of the chest. Electronically Signed: Rick Correa MD ([place]) at 17:05 EDT , Service support ,
[2021-04-10 16:47] LABS: Anion Gap 8 (5-15); BUN 5 mg/dL (7-18); BUN/Creat Ratio 6.4 RATIO (10-20); Calcium,Total 9.5 mg/dL (8.5-10.1); Chloride 105 mmol/L (98-107); Creatinine, Serum 0.78 mg/dL (0.55-1.02); EST Glomerular Filtration Rate 89 mL/min (>60); Est Glom Filt Rate - Afr Amer 107 mL/min (>60); Glucose 105 mg/dL (74-106); Potassium 3.4 mmol/L (3.5-5.1); Sodium Level 139 mmol/L (136-145)
[2021-04-10 16:52] LABS: Differential Comment SCANNED; Differential Indicated SCAN CRITERIA MET
[2021-04-10 16:53] LABS: Platelet Morphology GIANT
[2021-04-10 16:55] LABS: D-Dimer Quantitative (DVT/PE) 0.72 FEU/ug/m (0.27-0.49)
--- NOTE | 2021-04-10 16:57 | CT_ITS ---
EXAM: CT ANGIOGRAPHY CHEST WITHOUT AND WITH INTRAVENOUS CONTRAST CLINICAL INDICATION: dyspnea, tachycardia TECHNIQUE: Helically acquired angiography images were obtained of the chest without and with intravenous contrast. This CT exam was performed using one or more of the following dose reduction techniques: automated exposure control, adjustment of the mA and/or kV according to patient size, and/or use of iterative reconstruction technique. This report was created using [employer] report generation technology. MIP reconstructed images were created and reviewed. CONTRAST: IV 75mL [id number] COMPARISON: 01/14/2016 FINDINGS: PULMONARY ARTERIES: Unremarkable. Normal in caliber. No evidence of pulmonary embolism. AORTA: Unremarkable. Normal in caliber. No evidence of dissection. GREAT VESSELS OF AORTIC ARCH: Unremarkable. Normal in caliber. No evidence of dissection. LUNGS AND PLEURAL SPACES: Unremarkable. No mass. No consolidation or edema. No pleural effusion or thickening. No pneumothorax. HEART: Unremarkable. Heart size is normal. No pericardial effusion. No signs of right heart strain. MEDIASTINUM: Unremarkable. No mediastinal or hilar adenopathy. Esophagus is unremarkable. No hiatal hernia. THYROID: Unremarkable. No thyroid lesions. BONES/JOINTS: Unremarkable. No suspicious lytic or blastic abnormality. CT/CTA Chest W/WO Contrast IMPRESSION: Negative CTA chest. Electronically Signed: Rick Correa MD ([place]) at 17:41 EDT , Service support ,
[2021-04-10 18:19] VITALS: BP 125/74; PULSE 97; RESP 16; O2SAT 99
[2021-04-10 18:43] LABS: Thyroid Stim Hormone (TSH) 1.09 uIU/mL (0.358-3.74)
== END 2021-04-10 18:21 | disposition home or self-care (01) ==
LOC: ED 16:29
PROVIDERS: Emergency Provider Emergency Medicine; PCP Family Medicine
DX: F41.9 Anxiety disorder, unspecified (principal); K21.9 Gastro-esophageal reflux disease without esophagitis; Z79.899 Other long term (current) drug therapy; Z87.891 Personal history of nicotine dependence
CPT/HCPCS: 71045; 71275; 80048; 84443; 85025; 85379; 93005; 96361; 96374; 99284; J7030; Q9967; A4216

== ENCOUNTER 2021-12-02 19:33 | Emergency (ER) | payer BC, SELFPAY ==
[2021-12-02 19:34] VITALS: BP 142/100; PULSE 114; RESP 18; TEMP 36.8; O2SAT 95; BMI 26.5
[2021-12-02] MEDS: Ondansetron 4 MG/2 ML Vial IV (20:23)
[2021-12-02] MEDS: 0.9% Normal Saline 1,000 ML 1000 ML IV (20:23)
[2021-12-02 21:00] LABS: Anion Gap 6 (5-15); BUN 8 mg/dL (7-18); BUN/Creat Ratio 11.4 RATIO (10-20); Chloride 106 mmol/L (98-107); EST Glomerular Filtration Rate 100 mL/min (>60); Est Glom Filt Rate - Afr Amer 121 mL/min (>60); Estimated Creatinine Clearance 91.91 ml/min; Glucose 107 mg/dL (74-106); Potassium 3.5 mmol/L (3.5-5.1); Sodium Level 142 mmol/L (136-145)
--- NOTE | 2021-12-02 21:24 | EX.ED.DYSGE1 ---
HPI History of Present Illness Chief Complaint: Dizziness Detail of Chief Complaint: Viral respiratory and GI symptoms Informant: patient Onset/Context/Timing Onset: Weeks (Approximately 10 to 14 days ago) Context: Sudden Onset Timing: Continuous and Waxes and wanes Quality: Headache, nausea vomiting, respiratory symptoms and lightheadedness Location: Generalized, respiratory and GI Current Severity: Mild Maximum Severity: Moderate Worsened by: Nothing Relieved by: Nothing Associated Symptoms Associated Symptoms: Viral-like symptoms Narrative Narrative: Intermittent fever with chills. She has had intermittent headache. She has had nasal respiratory symptoms and cough. She also has had GI symptoms. She states she thought she was getting better. She has gotten worse over the last couple of days. She does report decreased urine output and dark-colored urine. She denies loss of taste or smell. She states she has no appetite or energy.Patient is a 36-year-old woman with history of migraine headaches and anxiety who presents with viral-like illness that started approximately 2 weeks ago. She performed a home COVID test however the test had Prior similar symptoms: No Recent Illness/Hospitalization: No PFSH PFS Medical History Anxiety Carpal tunnel syndrome Former smoker GERD (gastroesophageal reflux disease) Hyperlipemia Kidney stone Home Medications escitalopram oxalate 10 mg PO DAILY 11/25/20 [History Last Taken Unknown] pantoprazole 40 mg PO DAILY 11/25/20 [History Last Taken Unknown] sumatriptan succinate 50 mg PO PRN PRN 11/25/20 [History Last Taken Unknown] promethazine 25 mg PO Q6H PRN #20 tab 03/24/21 [Rx Last Taken Unknown] lorazepam [Ativan] 1 mg PO TID PRN #10 tab 04/10/21 [Rx Last Taken Unknown] Allergy/AdvReac Type Severity Reaction Status Date / Time amoxicillin trihydrate AdvReac Diarrhea Verified 12/02/21 19:36 [From Augmentin] potassium clavulanate AdvReac Diarrhea Verified 12/02/21 19:36 [From Augmentin] Surgical History History of Social History (Updated 12/02/21 @ 21:[address] Adalberto Healy MD) household members: spouse and children Smoking Status: Former smoker substance use type: does not use ROS ROS ED Constitutional Constitutional ED: Reports chills, fever(s) and sweats; Denies weight loss Eyes Eyes: Denies blurry vision, change in vision or diplopia ENT ENT ED: Denies ear pain or rhinorrhea Cardiovascular Cardiovascular: Denies chest pain, orthopnea, palpitations, paroxysmal nocturnal dyspnea or racing heartbeat Respiratory/Chest Respiratory/Chest: Reports cough, dyspnea and dyspnea on exertion; Denies orthopnea or paroxysmal nocturnal dyspnea Gastrointestinal Gastrointestinal: Reports abdominal pain, diarrhea, nausea and vomiting Genitourinary Genitourinary ED: Denies dysuria, hematuria or urinary frequency Musculoskeletal Musculoskeletal: Reports arthralgias and myalgias; Denies back pain or neck pain Integumentary Denies rash Neurologic Neurologic: Reports headache(s); Denies paresthesias or weakness Endocrine Endocrinology: Denies polydipsia, polyphagia or polyuria EXAM Physical Exam Const Vital Signs: 12/02/21 19:34 12/02/21 20:24 Temperature 98.3 F Temperature Source Temporal Pulse Rate 114 H Respiratory Rate 18 Respiratory Effort Normal Non-Labored Respiratory Pattern Normal Blood Pressure 142/100 H Blood Pressure Mean 114 Pulse Ox 95 Oxygen Delivery Method Room Air Positive well nourished and well developed General Appearance ED: well developed, NAD and other Patient appears ill but not toxic. ; Negative for cyanotic, diaphoretic or pallor HEENT Reports TM's clear and dry mucous membranes Negative for trauma or tenderness Tympanic Membrane ED: Yes TM's clear Mouth ED: Yes dry mucous membranes Mouth: dry mucous membranes Eyes PERRL and EOMs intact bilaterally General Eye ED: Negative for pale conjunctiva or scleral icterus Neck no lymphadenopathy, supple and no JVD General: Negative for tenderness Chest Wall inspection of chest normal Resp normal respiratory effort and clear to auscultation bilaterally Cardio regular rhythm, S1 normal heart sound, S2 normal heart sound and no murmurs Rate: tachycardic GI normal to inspection, nondistended, normoactive bowel sounds, non-tender and non-distended Palpation: soft Back/Spine no CVA tenderness Cervical Spine: Negative for cervical spine tenderness Thoracic Spine / Upper Back: Negative for thoracic spinal tenderness or paraspinal muscle tenderness Extremity normal to inspection Extremity Narrative: There is no asymmetry, swelling, discoloration, leg vein distention, palpable cords or tenderness along the distribution of the deep venous system. General Extremety ED: Negative for edema or tenderness General Extremity: Negative for edema Neuro oriented x3, CN's II-XII intact bilaterally and no sensory deficits noted Sensorium / Orientation: alert; Negative for orientation impaired Motor Exam: strength 5/5 throughout Psych mental status grossly normal Skin no rashes or lesions noted and no wounds General Skin Exam: Negative for jaundice or pallor MDM MDM MDM Narrative Medical decision making narrative: Patient has systemic viral symptoms. Concern patient may have COVID. Since symptoms started greater than 10 days ago PCR test was obtained. Clinically she appears dehydrated and liter of normal saline was ordered. Will reassess. Lab Data Attestation: I reviewed the patient's lab results. Labs: Laboratory Results - last 24 hr 12/02/21 20:20 Sodium 142 Potassium 3.5 Chloride 106 Carbon Dioxide 30.0 Anion Gap 6 BUN 8 Creatinine 0.70 Estim Creat Clear Calc 91.91 Est GFR (MDRD) Af Amer 121 Est GFR (MDRD) Non-Af 100 BUN/Creatinine Ratio 11.4 Glucose 107 H Calcium 9.0 Rhythm Strip Rhythm Strip: Sinus Tach Rate: 112 Ectopy: None Discharge Plan Triage Chief Complaint: Dizziness ED Provider: Adalebrto Healy Dx/Rx/DC Orders Clinical Impression: Acute viral disease, Encounter for screening laboratory testing for COVID-19 virus Instructions: Coronavirus Disease 2019 (COVID-19): Caring for Yourself or Others, ED Viral Syndrome (Adult) Prescriptions: No Action sumatriptan succinate 50 MG tablet 50 mg PO PRN PRN (Reason: Migraine Symptoms) RF: 0 pantoprazole 40 MG tablet 40 mg PO DAILY RF: 0 escitalopram oxalate 10 MG tablet 10 mg PO DAILY RF: 0 promethazine 25 mg tablet 25 mg PO Q6H PRN (Reason: nausea and vomiting) Qty: 20 RF: 0 lorazepam [Ativan] 1 mg tablet 1 mg PO TID PRN (Reason: anxiety) Qty: 10 RF: 0 Primary Care Provider: Huber Pompa Referrals: Huber Pompa MD [Primary Care Provider] - As Needed Disposition Disposition: Home, Self Care
[2021-12-02 21:39] VITALS: PULSE 70; RESP 12
[2021-12-02 21:47] VITALS: RESP 14
== END 2021-12-02 21:48 | disposition home or self-care (01) ==
PROVIDERS: Emergency Provider Emergency Medicine; PCP Family Medicine; Visit Provider Emergency Medicine
DX: B34.9 Viral infection, unspecified (principal); Z20.822 Contact with and (suspected) exposure to COVID-19; R11.2 Nausea with vomiting, unspecified; R42 Dizziness and giddiness; R51.9 Headache, unspecified; R68.83 Chills (without fever); F41.9 Anxiety disorder, unspecified; E78.5 Hyperlipidemia, unspecified; Z87.891 Personal history of nicotine dependence; K21.9 Gastro-esophageal reflux disease without esophagitis; Z87.442 Personal history of urinary calculi; Z79.899 Other long term (current) drug therapy; R05.9 Cough, unspecified; R19.7 Diarrhea, unspecified
CPT/HCPCS: 80048; 87635; 96374; 99284; J7030; J2405; U0003; U0005

== ENCOUNTER 2021-12-22 17:30 | Emergency (ER) | payer BC, SELFPAY ==
[2021-12-22 17:31] VITALS: BP 127/89; PULSE 105; RESP 15; TEMP 36.3; O2SAT 98; BMI 27.6
--- NOTE | 2021-12-22 17:55 | CT_ITS ---
STUDY: CT ABDOMEN AND PELVIS WITHOUT CONTRAST REASON FOR EXAM: Female, 36 years old. right flank pain RADIATION DOSAGE (If Supplied By Facility): CTDIvol = ( 7.17 ) mGy, DLP = ( 352.82 ) mGycm TECHNIQUE: Transaxial images were obtained from the dome of the diaphragm to the symphysis pubis without oral contrast, and without intravenous contrast. Sagittal and coronal images were reconstructed. Individualized dose optimization techniques were used for this CT. COMPARISON: 03/24/2021 FINDINGS: The visualized lung bases are unremarkable. The visualized portions of the heart are within normal limits. Normal liver. Normal gallbladder and extrahepatic biliary system. Normal spleen. Normal pancreas. Normal bilateral adrenal glands. Tiny nonobstructing bilateral renal calculi. No evidence for renal obstruction or mass.. Normal visualized stomach. Mild ileus with diffuse fecal retention in the colon.. The appendix is visualized and appears normal. Normal abdominal aorta. Normal inferior vena cava. Normal retroperitoneum. Incompletely distended thick-walled bladder likely of no significance. Postsurgical change status post bilateral tubal ligation Normal abdominal wall. Normal osseous structures. CT/Abdomen/Pelvis without Cont IMPRESSION: Bilateral nephrolithiasis but no evidence for hydronephrosis or ureteral calculus at this time.. Mild ileus with diffuse fecal retention in the colon Electronically Signed: Ministerio Bains MD at 19:09 EST ,
--- NOTE | 2021-12-22 17:56 | EDS_ITS ---
HPI HPI - GI History of Present Illness Chief Complaint: Flank Pain Detail of Chief Complaint: Right flank pain that started about 1 PM Informant: patient Narrative Narrative: Patient presents to the emergency department complaint of right-sided flank pain that started around 1 PM. She was seen in her primary care physician's office and given a shot of Toradol and was told to have a CT scan done as an outpatient to rule out kidney stone as patient states this feels similar to other kidney stones she has had. Patient states currently her pain is only a 2 out of 10. Patient denies vomiting but had some mild nausea. Patient denies urinary symptoms. She denies fevers. She denies significant abdominal pain. Prior similar symptoms: Yes PFSH PFSH Medical History Anxiety Carpal tunnel syndrome Former smoker GERD (gastroesophageal reflux disease) Hyperlipemia Kidney stone Home Medications escitalopram oxalate 10 mg PO DAILY 11/25/20 [History Last Taken Unknown] pantoprazole 40 mg PO DAILY 11/25/20 [History Last Taken Unknown] sumatriptan succinate 50 mg PO PRN PRN 11/25/20 [History Last Taken Unknown] promethazine 25 mg PO Q6H PRN #20 tab 03/24/21 [Rx Last Taken Unknown] lorazepam [Ativan] 1 mg PO TID PRN #10 tab 04/10/21 [Rx Last Taken Unknown] hydrocodone-acetaminophen 1 tab PO Q4H PRN PRN 2 Days #10 tablet 12/22/21 [Rx Last Taken Unknown] Allergy/AdvReac Type Severity Reaction Status Date / Time amoxicillin trihydrate AdvReac Diarrhea Verified 12/02/21 19:36 [From Augmentin] potassium clavulanate AdvReac Diarrhea Verified 12/02/21 19:36 [From Augmentin] Surgical History History of Social History (Updated 12/02/21 @ 21:[address] Adalberto Healy MD) household members: spouse and children Smoking Status: Former smoker substance use type: does not use ROS ROS ED Constitutional Constitutional ED: Reports systems reviewed and no addt'l complaints, except as documented; Denies body ache(s), change in weight or chills Eyes Eyes: Denies acute decrease in peripheral vision, change in vision, double vision or loss of vision ENT ENT ED: Reports none; Denies ear pain, lip swelling, loss taste/smell, neck pain, otalgia or sore throat Cardiovascular Cardiovascular: Reports none; Denies abdominal pain, chest pain with activity, leg edema, lightheadedness, palpitations, rapid heart rate or syncope Respiratory/Chest Respiratory/Chest: Reports none; Denies change in mental status, dry cough, dyspnea, hemoptysis, shortness of breath at rest or shortness of breath with exertion Gastrointestinal Gastrointestinal: Reports none and other; Denies abdominal pain, change in stool character, diarrhea, hematemesis, hematochezia, melena, rectal bleeding or vomiting Genitourinary Genitourinary ED: Reports none; Denies abdominal discomfort, anuria, dysuria, genital pain or polyuria Musculoskeletal Musculoskeletal: Reports none and back pain; Denies arthralgias, difficulty walking, extremity pain, muscle weakness or myalgias Integumentary Reports none; Denies abscess or rash Neurologic Neurologic: Reports none; Denies abnormal gait, confusion, focal weakness, frequent falls, headache(s), loss of vision, numbness, paresthesias, radicular pain, vertigo or weakness Psychiatric Psychiatric: Reports systems reviewed and no addt'l complaints, except as documented and none; Denies behavioral changes, confusion, difficulty concentrating, hallucinations, suicidal ideation, tactile hallucinations or visual hallucinations Endocrine Endocrinology: Denies none, cold intolerance, excessive sweating, fatigue or heat intolerance Hematologic/Lymphatic Hematologic/Lymphatic: Reports none; Denies anemia, easy bleeding or easy bruising Allergic/Immunologic Allergic/Immunologic ED: Denies as per HPI, none, lip swelling, mouth swelling, throat swelling, tongue swelling or hives EXAM Physical Exam Const Vital Signs: 12/22/21 17:31 Temperature 97.4 F L Temperature Source Temporal Pulse Rate 105 H Respiratory Rate 15 Blood Pressure 127/89 H Blood Pressure Mean 101 Pulse Ox 98 Oxygen Delivery Method Room Air Positive well nourished and well developed General Appearance ED: well developed and NAD HEENT Reports TM's clear and moist mucous membranes normocephalic and atraumatic; Negative for trauma or tenderness Tympanic Membrane ED: Yes TM's clear Eyes PERRL and EOMs intact bilaterally General Eye ED: Negative for pale conjunctiva or scleral icterus Neck no lymphadenopathy, supple and no JVD General: Negative for tenderness Chest Wall inspection of chest normal and palpation of chest normal Chest: Negative for tenderness Resp normal respiratory effort and clear to auscultation bilaterally Effort and Inspection: Negative for respiratory distress or pain with movement Auscultation: Negative for rhonchi, wheezes or diminished lung sounds Cardio regular rate, regular rhythm, S1 normal heart sound, S2 normal heart sound and no murmurs Peripheral Pulses: pulses 2+ throughout GI normal to inspection, nondistended, normoactive bowel sounds, soft to palpation, non-tender, non-distended and no masses Back/Spine no thoracic nor lumbar tenderness Back/Spine Narrative: Patient with CVA tenderness on the right. General Back: CVA tenderness Extremity normal to inspection General Extremety ED: Negative for edema General Extremity: Negative for edema Neuro oriented x3, CN's II-XII intact bilaterally, no sensory deficits noted and gait normal Sensorium / Orientation: awake, alert, oriented to person, oriented to place and oriented to time Motor Exam: strength 5/5 throughout and strength abnormal Psych mental status grossly normal Skin no rashes or lesions noted and no wounds MDM MDM MDM Narrative Medical decision making narrative: IV line established on arrival. Patient had already received Toradol in the office of her primary care physician and did not require any further pain medicine while in the department. Her CT showed nephrolithiasis but no evidence of urolithiasis or hydronephrosis. CT otherwise was essentially unremarkable. Urinalysis was unremarkable. At this point patient will be given a prescription for few [place] for pain should she need it. Etiology of her flank pain is unclear. She did not think this was muscular and she states that it felt similar to her kidney stone pain in the past therefore it is possible she may have passed a small stone. Lab Data Attestation: I reviewed the patient's lab results. Labs: Laboratory Results - last 24 hr 12/22/21 12/22/21 12/22/21 18:10 18:10 18:10 WBC 6.5 RBC 3.66 L Hgb 11.3 L Hct 33.4 L MCV 91.3 MCH 30.9 MCHC 33.8 RDW Std Deviation 46.0 H RDW Coeff of Autumn 13.6 Plt Count 270 MPV 10.5 Immature Gran % (Auto) 0.200 Neut % (Auto) 69.3 Lymph % (Auto) 20.6 Collin % (Auto) 8.8 Eos % (Auto) 0.6 Baso % (Auto) 0.5 Absolute Neuts (auto) 4.5 Absolute Lymphs (auto) 1.33 Nucleated RBC % 0 Sodium 137 Potassium 3.6 Chloride 106 Carbon Dioxide 27.0 Anion Gap 4 L BUN 7 Creatinine 0.72 Estim Creat Clear Calc 89.35 Est GFR (MDRD) Af Amer 118 Est GFR (MDRD) Non-Af 98 BUN/Creatinine Ratio 9.8 L Glucose 108 H Calcium 8.6 Serum , Qual NEGATIVE Urine Color Urine Clarity Urine pH Ur Specific [place] Urine Protein Urine Glucose (UA) Urine Ketones Urine Occult Blood Urine Nitrite Urine Bilirubin Urine Urobilinogen Ur Leukocyte Esterase 12/22/21 18:15 WBC RBC Hgb Hct MCV MCH MCHC RDW Std Deviation RDW Coeff of Autumn Plt Count MPV Immature Gran % (Auto) Neut % (Auto) Lymph % (Auto) Collin % (Auto) Eos % (Auto) Baso % (Auto) Absolute Neuts (auto) Absolute Lymphs (auto) Nucleated RBC % Sodium Potassium Chloride Carbon Dioxide Anion Gap BUN Creatinine Estim Creat Clear Calc Est GFR (MDRD) Af Amer Est GFR (MDRD) Non-Af BUN/Creatinine Ratio Glucose Calcium Serum , Qual Urine Color Yellow Urine Clarity Clear Urine pH 7.0 Ur Specific [place] 1.010 Urine Protein Negative Urine Glucose (UA) Normal Urine Ketones Negative Urine Occult Blood Negative Urine Nitrite Negative Urine Bilirubin Negative Urine Urobilinogen Normal Ur Leukocyte Esterase Negative Radiography Diagnostic Testing: Clinical Impression(s) from Imaging Studies Abdomen/Pelvis CT 12/22/21 17:55 IMPRESSION: Bilateral nephrolithiasis but no evidence for hydronephrosis or ureteral calculus at this time.. Mild ileus with diffuse fecal retention in the colon Electronically Signed: Ministerio Bains MD at 19:09 EST , Discharge Plan Triage Chief Complaint: Flank Pain ED Provider: Matt Buchanan Dx/Rx/DC Orders Clinical Impression: Right flank pain Instructions: ED Flank Pain, Uncertain Cause, ED Pain, Acute, Uncertain Cause Prescriptions: New hydrocodone-acetaminophen [hydrocodone-acetaminophen] 1 TABLET tablet 1 tab PO Q4H PRN PRN (Reason: Pain) 2 Days Qty: 10 RF: 0 No Action sumatriptan succinate 50 MG tablet 50 mg PO PRN PRN (Reason: Migraine Symptoms) RF: 0 pantoprazole 40 MG tablet 40 mg PO DAILY RF: 0 escitalopram oxalate 10 MG tablet 10 mg PO DAILY RF: 0 promethazine 25 mg tablet 25 mg PO Q6H PRN (Reason: nausea and vomiting) Qty: 20 RF: 0 lorazepam [Ativan] 1 mg tablet 1 mg PO TID PRN (Reason: anxiety) Qty: 10 RF: 0 Primary Care Provider: Huber Pompa Referrals: Huber Pompa MD [Primary Care Provider] - 3-5 Days Disposition Disposition: Home, Self Care
[2021-12-22 18:19] LABS: Absolute Lymphocyte Count 1.33 X10^3/uL (0.83-4.51); Absolute Neutrophil Count 4.5 X10^3/uL (2.0-7.7); Basophil# 0.03 X10^3/uL; Basophil% 0.5 % (0-1); Eosinophil# 0.04 X10^3/uL; Eosinophils% 0.6 % (0-5); Hematocrit 33.4 % (37-47); Hemoglobin 11.3 g/dL (12.0-15.0); Lymphocyte # 1.33 X10^3/ul (0.83-4.51); Lymphocyte % 20.6 % (19-41); Mean Corp Hgb Conc 33.8 g/dL (32-36); Mean Corpuscular Hgb 30.9 pg (27.0-32.0); Mean Corpuscular Volume 91.3 fL (81-99); Mean Platelet Vol. 10.5 fl (6.2-12.0); Monocyte# 0.57 X10^3/uL; Monocyte% 8.8 % (0-10); NRBC Flagged by Analyzer 0 % (0-5); Neutrophil # 4.48 X10^3/uL (2.7-7.7); Neutrophil % 69.3 % (47-70); Platelet Count 270 K/mm3 (150-450); RBC Distribution Width CV 13.6 % (11.6-14.6); Red Blood Count 3.66 M/mm3 (4.2-5.4); White Blood Count 6.5 K/mm3 (4.4-11.0)
[2021-12-22 18:31] LABS: Anion Gap 4 (5-15); BUN 7 mg/dL (7-18); BUN/Creat Ratio 9.8 RATIO (10-20); Calcium,Total 8.6 mg/dL (8.5-10.1); Chloride 106 mmol/L (98-107); Creatinine, Serum 0.72 mg/dL (0.55-1.02); EST Glomerular Filtration Rate 98 mL/min (>60); Est Glom Filt Rate - Afr Amer 118 mL/min (>60); Estimated Creatinine Clearance 89.35 ml/min; Glucose 108 mg/dL (74-106); Potassium 3.6 mmol/L (3.5-5.1); Sodium Level 137 mmol/L (136-145)
[2021-12-22 18:38] LABS: Internal QC Validated? YES +Cl - CLEAR BKGD; Pregnancy, Serum, hCG Quali. NEGATIVE Negative
[2021-12-22 20:06] LABS: Bacteria 0 SEEN /hpf (None Seen); Mucous, Urine 0 SEEN /hpf (<or=2+); Red Blood Cells-Urine 0 SEEN /hpf (0-5); White Blood Cells 0 SEEN /hpf (0-5)
[2021-12-22 20:08] LABS: Color, Urine Yellow (Yellow); Glucose, Dipstick Normal (Normal); Ketone-Dipstick Negative (Negative); Leukocyte Esterase-Dipstick Negative /ul (Negative); Nitrite-Dipstick Negative (Negative); Occult Blood-Urine Negative /ul (Negative); Protein-Dipstick Negative (Negative); Urine Bilirubin Dipstick Negative (Negative); Urine Clarity Clear (Clear); Urine Urobilinogen Normal (Normal)
[2021-12-22 20:19] LABS: Squamous Epithelial Cells - UA 0-5 SEEN /hpf (5-10)
[2021-12-22 20:27] VITALS: RESP 16
== END 2021-12-22 20:27 | disposition home or self-care (01) ==
PROVIDERS: Emergency Provider Emergency Medicine; PCP Family Medicine; Visit Provider Emergency Medicine
DX: R10.9 Unspecified abdominal pain (principal); R11.0 Nausea; Z87.891 Personal history of nicotine dependence
CPT/HCPCS: 74176; 80048; 81001; 84703; 85025; 99283

== ENCOUNTER 2021-12-22 18:13 | Outpatient (CLI) | payer BC, SELFPAY | END 2021-12-22 23:59 | disposition short-term general hospital (02) | PROVIDERS: PCP Family Medicine; Visit Provider Family Medicine | DX: N20.0 Calculus of kidney (principal) | CPT/HCPCS: 87086; 87088 ==

== ENCOUNTER 2022-08-13 10:00 | Emergency (ER) | payer BC, SELFPAY ==
[2022-08-13 10:01] VITALS: BP 135/77; PULSE 99; RESP 16; TEMP 36.1; O2SAT 99; BMI 29.0
--- NOTE | 2022-08-13 10:13 | EDS_ITS ---
HPI History of Present Illness Chief Complaint: Chest Other Detail of Chief Complaint: Left-sided chest pain Informant: patient Onset/Context/Timing Onset: Today and Hours (0800) Activity at onset: sudden Timing: Continuous Quality: Positive for Aching Location: Left Parasternal Current Severity: Mild Maximum Severity: Severe Worsened By: Movement of Arm, Movement of Torso and Breathing; Not Worsened By Exertion, Eating, Palpation or Coughing Relieved By: Remaining Still Associated Symptoms: Negative for Nausea, Vomiting, Diaphoresis, Dyspnea, Cough, Fever, Lightheadedness, Acid Reflux or Palpitations Narrative Narrative: Patient is a 37-year-old woman with history of GERD and depression who presents with abrupt onset of left-sided chest pain that is made worse with movement and breathing. Remaining still alleviates her pain. She states she was sitting drinking coffee when the pain started abruptly. She had similar presentation year ago and was diagnosed with costochondritis. She denies history of VTE. She has no risk factors for VTE. There is no family history of VTE. She denies leg pain, swelling discoloration. She denies rhinorrhea, congestion, sore throat or postnasal drainage. She denies cough. She denies shortness of breath. She denies GI symptoms. She denies history of trauma or overuse. Prior Similar Symptoms: Yes Recent Illness/Hospitalization: No CVD Risk Factors: Negative for Hypertension, Diabetes, Hypercholesterolemia or Family History 1' </=55 PE Risk Factors: Negative for Recent Travel/Surgery, Recent Immobilization, Prior DVT or PE or Cancer TAD Risk Factors: Negative for Marfan's Syndrome, Hypertension or Family History [facility] Medical History Anxiety Carpal tunnel syndrome Former smoker GERD (gastroesophageal reflux disease) Hyperlipemia Kidney stone Home Medications escitalopram oxalate 10 mg tablet 10 mg PO DAILY 11/25/20 [History Last Taken Unknown] pantoprazole 40 mg tablet,delayed release 40 mg PO DAILY 11/25/20 [History Last Taken Unknown] sumatriptan succinate 50 mg tablet 50 mg PO PRN PRN Migraine Symptoms 11/25/20 [History Last Taken Unknown] promethazine 25 mg tablet 25 mg PO Q6H PRN nausea and vomiting #20 tabs 03/24/21 [Rx Last Taken Unknown] lorazepam 1 mg tablet (Ativan) 1 mg PO TID PRN anxiety #10 tabs 04/10/21 [Rx Last Taken Unknown] hydrocodone-acetaminophen 5-325mg 5mg-325mg 1 tab PO Q4H PRN PRN Pain 2 days #10 TABLETS 12/22/21 [Rx Last Taken Unknown] naproxen 500 mg tablet 500 mg PO BID #14 tabs 08/13/22 [Rx Last Taken Unknown] Allergy/AdvReac Type Severity Reaction Status Date / Time amoxicillin trihydrate AdvReac Diarrhea Verified 08/13/22 10:00 [From Augmentin] potassium clavulanate AdvReac Diarrhea Verified 08/13/22 10:00 [From Augmentin] Surgical History History of Social History household members: spouse and children Smoking Status: Former smoker substance use type: does not use ROS ROS ED Constitutional Constitutional ED: Denies chills, fever(s), subjective, sweats or weight loss Eyes Eyes: Reports none ENT ENT ED: Denies ear pain, rhinorrhea or sore throat Cardiovascular Cardiovascular: Reports as per HPI; Denies orthopnea or paroxysmal nocturnal dyspnea Respiratory/Chest Respiratory/Chest: Denies cough, dyspnea, dyspnea on exertion, orthopnea or paroxysmal nocturnal dyspnea Gastrointestinal Gastrointestinal: Denies melena Musculoskeletal Musculoskeletal: Denies arthralgias, back pain, myalgias or neck pain Integumentary Denies rash Hematologic/Lymphatic Hematologic/Lymphatic: Denies easy bleeding or easy bruising EXAM Physical Exam Const Vital Signs: 08/13/22 10:01 Temperature 96.9 F L Temperature Source Temporal Pulse Rate 99 Respiratory Rate 16 Blood Pressure 135/77 H Blood Pressure Mean 96 Pulse Ox 99 Oxygen Delivery Method Room Air Positive well nourished and well developed General Appearance ED: well developed and NAD HEENT Reports moist mucous membranes HEENT Narrative: Ears normal. Nares patent. Teeth normal. Mucosa moist. normocephalic and atraumatic Eyes PERRL and EOMs intact bilaterally General Eye ED: Negative for pale conjunctiva or scleral icterus Neck no lymphadenopathy and supple Chest Wall palpation of chest normal Chest Narrative: Patient has point tenderness over the fourth fifth left intercostal space that reproduces her pain exactly. This causes patient to flinch. Resp normal respiratory effort and clear to auscultation bilaterally Cardio regular rate, regular rhythm, S1 normal heart sound, S2 normal heart sound and no murmurs Peripheral Pulses: pulses 2+ throughout Neuro oriented x3, CN's II-XII intact bilaterally, no sensory deficits noted and gait normal Sensorium / Orientation: awake and alert Psych Psych Narrative: As I was exiting the room she states that she has no reason to Wolfrey with regards to heart attack and I informed her correct Mood & Affect: anxious Skin no rashes or lesions noted MDM MDM MDM Narrative Medical decision making narrative: Patient presents with abrupt onset of left-sided chest pain that does have a pleuritic component. Of note patient is PERC negative. Patient's history and physical exam is consistent with costochondritis. She does have history reflux. She has taken nonsteroidals in the past without complications Imaging was not obtained nor were laboratory studies. Discharge Plan Triage Chief Complaint: Chest Other Other Complaint: Chest Pain ED Provider: Adalberto Healy Dx/Rx/DC Orders Clinical Impression: Acute costochondritis Prescriptions: New naproxen 500 mg tablet 500 mg PO BID Qty: 14 0RF No Action sumatriptan succinate 50 MG tablet 50 mg PO PRN PRN (Reason: Migraine Symptoms) pantoprazole 40 MG tablet 40 mg PO DAILY escitalopram oxalate 10 MG tablet 10 mg PO DAILY promethazine 25 mg tablet 25 mg PO Q6H PRN (Reason: nausea and vomiting) Qty: 20 0RF lorazepam [Ativan] 1 mg tablet 1 mg PO TID PRN (Reason: anxiety) Qty: 10 0RF hydrocodone-acetaminophen [hydrocodone-acetaminophen] 1 TABLET tablet 1 tab PO Q4H PRN PRN (Reason: Pain) 2 Days Qty: 10 0RF Primary Care Provider: Huber Pompa Referrals: Huber Pompa MD [Primary Care Provider] - 3-5 Days if not improving Disposition Disposition: Home, Self Care
[2022-08-13] MEDS: Naproxen 250 MG Tablet 500 MG PO (10:24)
== END 2022-08-13 10:28 | disposition home or self-care (01) ==
PROVIDERS: Emergency Provider Emergency Medicine; PCP Family Medicine; Visit Provider Emergency Medicine
DX: R07.89 Other chest pain (principal); E78.5 Hyperlipidemia, unspecified; R07.9 Chest pain, unspecified; K21.9 Gastro-esophageal reflux disease without esophagitis; F32.9 Major depressive disorder, single episode, unspecified; F41.9 Anxiety disorder, unspecified; Z79.899 Other long term (current) drug therapy; Z87.891 Personal history of nicotine dependence
CPT/HCPCS: 99283

== ENCOUNTER → 2022-12-19 | Outpatient (CLI) | payer BC, SELFPAY ==
--- NOTE | 2022-12-19 14:06 | CT_ITS ---
STUDY: CT ABDOMEN AND PELVIS WITHOUT CONTRAST REASON FOR EXAM: Female, 37 years old. Possible kidney stone. Left-sided abdominal pain. RADIATION DOSAGE (If Supplied By Facility): CTDIvol = ( 8.11 ) mGy, DLP = ( 391.34 ) mGycm TECHNIQUE: Transaxial images were obtained from the dome of the diaphragm to the symphysis pubis without oral contrast, and without intravenous contrast. Sagittal and coronal images were reconstructed. Individualized dose optimization techniques were used for this CT. COMPARISON: Comparison is made with prior examination dated 12/22/2021. FINDINGS: The visualized lung bases are unremarkable. The visualized portions of the heart are within normal limits. Normal liver. Normal gallbladder and extrahepatic biliary system. Normal spleen. Normal pancreas. Normal bilateral adrenal glands. Tiny bilateral faint calcifications are seen in both kidneys suggestive of possible medullary sponge kidney. No ureteric obstruction is seen at this time. Normal visualized stomach. Normal small intestine. There are scattered colonic diverticula consistent with diverticulosis. The appendix is visualized and appears normal. Normal abdominal aorta. Normal inferior vena cava. Normal retroperitoneum. Normal urinary bladder. Bilateral tubal ligation clips are seen. Normal abdominal wall. Normal osseous structures. CT/Abdomen/Pelvis without Cont IMPRESSION: No acute abnormality is seen. Findings suggestive of bilateral medullary sponge kidneys. Electronically Signed: Tyree Marte MD at 14:38 EST ,
== END | disposition home or self-care (01) ==
LOC: CT 14:05
PROVIDERS: PCP Family Medicine; Referring Provider Family Medicine; Visit Provider Family Medicine
DX: N20.0 Calculus of kidney (principal)
CPT/HCPCS: 74176

== ENCOUNTER → 2022-12-21 | Outpatient (CLI) | payer BC, SELFPAY ==
[2022-12-21 18:04] LABS: Absolute Neutrophil Count 3.3 X10^3/uL (2.0-7.7); Basophil# 0.04 X10^3/uL; Basophil% 0.8 % (0-1); Eosinophil# 0.05 X10^3/uL; Eosinophils% 0.9 % (0-5); Hematocrit 35.2 % (37-47); Hemoglobin 11.4 g/dL (12.0-15.0); Lymphocyte % 28.2 % (19-41); Mean Corp Hgb Conc 32.4 g/dL (32-36); Mean Corpuscular Hgb 29.5 pg (27.0-32.0); Mean Corpuscular Volume 91.2 fL (81-99); Mean Platelet Vol. 11.1 fl (6.2-12.0); Monocyte# 0.47 X10^3/uL; Monocyte% 8.8 % (0-10); NRBC Flagged by Analyzer 0 % (0-5); Neutrophil # 3.25 X10^3/uL (2.7-7.7); Neutrophil % 61.1 % (47-70); Platelet Count 283 K/mm3 (150-450); RBC Distribution Width CV 14.5 % (11.6-14.6); RBC Distribution Width SD 48.2 fl (35.1-43.9); Red Blood Count 3.86 M/mm3 (4.2-5.4); White Blood Count 5.3 K/mm3 (4.4-11.0)
[2022-12-21 18:17] LABS: ALB/GLOB Ratio 1.1 RATIO (0.9-2.4); AST(SGOT) 18 U/L (15-37); Alanine Aminotransfer ALT/SGPT 20 U/L (13-56); Albumin, Serum 3.9 g/dL (3.2-5.0); Alkaline Phosphatase 51 U/L (45-117); Anion Gap 7 (5-15); BUN 11 mg/dL (7-18); BUN/Creat Ratio 15.2 RATIO (10-20); Chloride 104 mmol/L (98-107); Creatinine, Serum 0.72 mg/dL (0.55-1.02); EST Glomerular Filtration Rate 96 mL/min (>60); Est Glom Filt Rate - Afr Amer 116 mL/min (>60); Globulin 3.4 g/dL (2.2-4.2); Glucose 92 mg/dL (74-106); Potassium 4.1 mmol/L (3.5-5.1); Protein, Total 7.3 g/dL (6.4-8.2); Sodium Level 140 mmol/L (136-145)
[2022-12-21 18:47] LABS: Erythrocyte Sedimentation Rate 14 mm/hr (0-30)
== END | disposition home or self-care (01) ==
LOC: MFPLAB 15:52
PROVIDERS: PCP Family Medicine; Referring Provider Family Medicine; Visit Provider Family Medicine
DX: R10.2 Pelvic and perineal pain (principal)
CPT/HCPCS: 36415; 80053; 85025; 85652

== ENCOUNTER → 2022-12-29 | Outpatient (CLI) | payer BC, SELFPAY ==
--- NOTE | 2022-12-29 14:58 | US_ITS ---
STUDY: ULTRASOUND OF THE FEMALE PELVIS - COMPLETE REASON FOR EXAM: Female, 37 years old. Pelvic Phong nUS - Pelvic, Tvag LMP: 12/16/2022. TECHNIQUE: Transabdominal TECHNICAL QUALITY: Adequate. COMPARISON: None. FINDINGS: The uterus is retroverted and is in a midline position. The uterus measures 8.1 cm x 5.6 x 4.5 cm. Normal uterine cervix. The endometrium measures 6 mm in thickness, and is hyperechoic. There is no demonstrated endometrial mass. There is no demonstrated myometrial mass. I.U.D. - The patient does not have an I.U.D. The right ovary is visualized. The right ovary measures 3 cm x 1.9 cm x 1.9 cm. There is no right ovarian cyst or ovarian mass. There is no visualized right adnexal mass or complex lesion. There is normal arterial and normal venous vascularity. The left ovary is visualized. The left ovary measures 2.7 cm x 2.5 cm x 1.5 cm. There is no left ovarian cyst or ovarian mass. There is no visualized left adnexal mass or complex lesion. There is normal arterial and normal venous vascularity. There is no fluid in the cul-de-sac. The pre void volume of the bladder was 509 ml. US/Pelvic (Non ) IMPRESSION: Normal female pelvis. Electronically Signed: Tyree Marte MD at 15:50 EST ,
== END | disposition home or self-care (01) ==
LOC: US 14:57
PROVIDERS: PCP Family Medicine; Referring Provider Family Medicine; Visit Provider Family Medicine
DX: R10.2 Pelvic and perineal pain (principal)
CPT/HCPCS: 76856; 93976

== ENCOUNTER 2023-01-05 21:55 | Emergency (ER) | payer BC, SELFPAY ==
[2023-01-05 21:55] VITALS: BP 114/58; PULSE 129; RESP 18; TEMP 35.7; O2SAT 100; BMI 28.3
[2023-01-06] MEDS: 0.9% Normal Saline 1,000 ML 999 ML IV (00:03)
[2023-01-06] MEDS: Morphine 4 MG/ML Syringe IV (00:03)
[2023-01-06] MEDS: Ondansetron 4 MG/2 ML Vial IV (00:03)
[2023-01-06] MEDS: Diphenoxylate/Atrop 1 Tablet 2 TABLET PO (00:04)
[2023-01-06 00:07] LABS: Absolute Lymphocyte Count 0.26 X10^3/uL (0.83-4.51); Absolute Neutrophil Count 8.7 X10^3/uL (2.0-7.7); Basophil# 0.02 X10^3/uL; Basophil% 0.2 % (0-1); Eosinophil# 0.03 X10^3/uL; Eosinophils% 0.3 % (0-5); Hematocrit 37.1 % (37-47); Hemoglobin 12.1 g/dL (12.0-15.0); Lymphocyte # 0.26 X10^3/ul (0.83-4.51); Lymphocyte % 2.8 % (19-41); Mean Corp Hgb Conc 32.6 g/dL (32-36); Mean Corpuscular Hgb 29.7 pg (27.0-32.0); Mean Corpuscular Volume 91.2 fL (81-99); Mean Platelet Vol. 10.2 fl (6.2-12.0); Monocyte# 0.41 X10^3/uL; Monocyte% 4.4 % (0-10); NRBC Flagged by Analyzer 0 % (0-5); Neutrophil # 8.68 X10^3/uL (2.7-7.7); Neutrophil % 92.1 % (47-70); POSITIVE DIFFERENTIAL YES; Platelet Count 261 K/mm3 (150-450); RBC Distribution Width CV 14.7 % (11.6-14.6); RBC Distribution Width SD 49.2 fl (35.1-43.9); Red Blood Count 4.07 M/mm3 (4.2-5.4); White Blood Count 9.4 K/mm3 (4.4-11.0)
[2023-01-06 00:11] LABS: Internal QC Validated? YES +Cl - CLEAR BKGD; Pregnancy, Serum, hCG Quali. NEGATIVE Negative
[2023-01-06 00:14] LABS: Differential Indicated SCAN CRITERIA MET
[2023-01-06 00:19] LABS: AST(SGOT) 11 U/L (15-37); Alanine Aminotransfer ALT/SGPT 16 U/L (13-56); Albumin, Serum 3.8 g/dL (3.2-5.0); Alkaline Phosphatase 49 U/L (45-117); Anion Gap 8 (5-15); BUN 11 mg/dL (7-18); BUN/Creat Ratio 15.7 RATIO (10-20); Bilirubin, Direct 0.11 mg/dL (0.00-0.30); Calcium,Total 8.8 mg/dL (8.5-10.1); Chloride 106 mmol/L (98-107); EST Glomerular Filtration Rate 99 mL/min (>60); Est Glom Filt Rate - Afr Amer 120 mL/min (>60); Estimated Creatinine Clearance 91.02 ml/min; Globulin 3.6 g/dL (2.2-4.2); Glucose 118 mg/dL (74-106); Lipase 114 U/L (73-393); Potassium 3.5 mmol/L (3.5-5.1); Protein, Total 7.4 g/dL (6.4-8.2); Sodium Level 140 mmol/L (136-145)
[2023-01-06 01:09] VITALS: PULSE 89; RESP 15; O2SAT 99
--- NOTE | 2023-01-06 01:09 | EX.ED.DYSGE1 ---
HPI History of Present Illness Chief Complaint: Nausea/Vomiting/Diarrhea Narrative Narrative: Patient is a 37-year-old female with past medical history of anxiety and GERD. 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 She states that this evening around 4 PM she developed generalized abdominal discomfort with bouts of nausea vomiting diarrhea. She denies any travel outside the country or recent antibiotic use or camping activities. She states that she has not been able to keep any food or fluid down secondary to her symptoms and with concern for dehydration comes in for evaluation [facility] Medical History Anxiety Carpal tunnel syndrome Former smoker GERD (gastroesophageal reflux disease) Hyperlipemia Kidney stone Home Medications escitalopram oxalate 10 mg tablet 10 mg PO DAILY 11/25/20 [History Last Taken Unknown] pantoprazole 40 mg tablet,delayed release 40 mg PO DAILY 11/25/20 [History Last Taken Unknown] sumatriptan succinate 50 mg tablet 50 mg PO PRN PRN Migraine Symptoms 11/25/20 [History Last Taken Unknown] hydrocodone-acetaminophen 5-325mg 5mg-325mg 1 tab PO Q4H PRN PRN Pain 2 days #10 TABLETS 12/22/21 [Rx Last Taken Unknown] diphenoxylate-atropine 2.5 mg-0.025 mg tablet (Lomotil) 1 tab PO 4X/DAY PRN PRN diarrhea 5 days #20 tabs 01/06/23 [Rx Last Taken Unknown] ondansetron 4 mg disintegrating tablet 4 mg PO TID PRN nausea and vomiting 7 days #21 tabs 01/06/23 [Rx Last Taken Unknown] oxycodone-acetaminophen 5 mg-325 mg tablet (Percocet) 1 tab PO Q6H PRN pain 3 days #12 tabs 01/06/23 [Rx Last Taken Unknown] Allergy/AdvReac Type Severity Reaction Status Date / Time amoxicillin trihydrate AdvReac Diarrhea Verified 08/13/22 10:00 [From Augmentin] potassium clavulanate AdvReac Diarrhea Verified 08/13/22 10:00 [From Augmentin] Surgical History History of Social History household members: spouse and children Smoking Status: Former smoker substance use type: does not use ROS ROS ED Constitutional Constitutional ED: Denies chills or fever(s) ENT ENT ED: Denies sore throat Cardiovascular Cardiovascular: Denies chest pain Respiratory/Chest Respiratory/Chest: Denies cough or dyspnea Gastrointestinal Gastrointestinal: Reports abdominal pain, diarrhea, nausea and vomiting Genitourinary Genitourinary ED: Denies dysuria Musculoskeletal Musculoskeletal: Reports myalgias Integumentary Denies rash Neurologic Neurologic: Reports headache(s) Hematologic/Lymphatic Hematologic/Lymphatic: Denies easy bleeding or easy bruising EXAM Physical Exam Const Vital Signs: 01/05/23 21:55 01/06/23 01:09 Temperature 96.3 F L Temperature Source Temporal Pulse Rate 129 H 89 Respiratory Rate 18 15 Blood Pressure 114/58 L Blood Pressure Mean 76 Pulse Ox 100 99 Oxygen Delivery Method Room Air Positive well nourished and well developed General Appearance ED: well developed HEENT Reports dry mucous membranes Mouth ED: Yes dry mucous membranes Mouth: dry mucous membranes Eyes PERRL and EOMs intact bilaterally General Eye ED: Negative for scleral icterus Neck supple Resp normal respiratory effort and clear to auscultation bilaterally Cardio regular rhythm Rate: tachycardic GI non-distended GI Narrative: Abdomen is soft and nondistended with hyperactive bowel sound. There is mild diffuse pain on palpation without voluntary guarding or rigidity. No pulsatile mass Auscultation: hyperactive bowel sounds Palpation: soft Extremity normal to inspection Neuro oriented x3 and CN's II-XII intact bilaterally Sensorium / Orientation: alert Psych mental status grossly normal Skin no rashes or lesions noted Skin Narrative: Skin turgor slightly increased General Skin Exam: Negative for jaundice MDM MDM MDM Narrative Medical decision making narrative: Patient presented to the ER slightly tachycardic and had physical exam findings concerning for dehydration therefore basic labs were ordered. Labs revealed no signs of acute kidney injury or severe electrolyte. With lipase being normal my concern for acute pancreatitis is low. At this time she does not have travel outside the country or recent antibiotic use to expose her to high risk for a bacterial intestinal infection such as C. difficile or E. coli. The patient was given IV fluids morphine Zofran and Lomotil and had no further bouts of vomiting or diarrhea while in the ER. Her heart rate also resolved with treatment of pain and dehydration. Therefore at this time as her work-up indicates this is most likely a viral gastroenteritis and symptoms have been controlled in the ER with no severe lab abnormalities she is otherwise safe for discharge. Lab Data Attestation: I reviewed the patient's lab results. Labs: Laboratory Results - last 24 hr 01/05/23 01/05/23 01/05/23 23:57 23:57 23:57 WBC 9.4 RBC 4.07 L Hgb 12.1 Hct 37.1 MCV 91.2 MCH 29.7 MCHC 32.6 RDW Std Deviation 49.2 H RDW Coeff of Autumn 14.7 H Plt Count 261 MPV 10.2 Immature Gran % (Auto) 0.200 Neut % (Auto) 92.1 H Lymph % (Auto) 2.8 L [place] % (Auto) 4.4 Eos % (Auto) 0.3 Baso % (Auto) 0.2 Absolute Neuts (auto) 8.7 H Absolute Lymphs (auto) 0.26 L Nucleated RBC % 0 Anisocytosis 1+ Sodium 140 Potassium 3.5 Chloride 106 Carbon Dioxide 26.0 Anion Gap 8 BUN 11 Creatinine 0.70 Estim Creat Clear Calc 91.02 Est GFR (MDRD) Af Amer 120 Est GFR (MDRD) Non-Af 99 BUN/Creatinine Ratio 15.7 Glucose 118 H Calcium 8.8 Total Bilirubin 0.50 Direct Bilirubin 0.11 AST 11 L ALT 16 Alkaline Phosphatase 49 Total Protein 7.4 Albumin 3.8 Globulin 3.6 Lipase 114 Serum , Qual NEGATIVE Discharge Plan Triage Chief Complaint: Nausea/Vomiting/Diarrhea ED Provider: Minor Castle Dx/Rx/DC Orders Clinical Impression: Nausea vomiting and diarrhea, Dehydration Instructions: ED Dehydration (Adult), ED Gastroenteritis, Viral (Adult) Prescriptions: New ondansetron 4 mg tablet,disintegrating 4 mg PO TID PRN (Reason: nausea and vomiting) 7 Days Qty: 21 0RF oxycodone-acetaminophen [Percocet] 5-325 mg tablet 1 tab PO Q6H PRN (Reason: pain) 3 Days Qty: 12 0RF diphenoxylate-atropine [Lomotil] 2.5-0.025 mg tablet 1 tab PO 4X/DAY PRN PRN (Reason: diarrhea) 5 Days Qty: 20 0RF No Action sumatriptan succinate 50 MG tablet 50 mg PO PRN PRN (Reason: Migraine Symptoms) pantoprazole 40 MG tablet 40 mg PO DAILY escitalopram oxalate 10 MG tablet 10 mg PO DAILY hydrocodone-acetaminophen [hydrocodone-acetaminophen] 1 TABLET tablet 1 tab PO Q4H PRN PRN (Reason: Pain) 2 Days Qty: 10 0RF Primary Care Provider: Huber Pompa Referrals: Huber Pompa MD [Primary Care Provider] - Activity Restrictions/Additional Instructions: Please keep yourself well-hydrated and return to the ER should you have any further concerns Disposition Disposition: Home, Self Care Discharge Date/Time: 01/06/23 01:20
[2023-01-06 02:11] LABS: Anisocytosis 1+
== END 2023-01-06 01:20 | disposition home or self-care (01) ==
PROVIDERS: Emergency Provider Emergency Medicine; PCP Family Medicine; Visit Provider Emergency Medicine
DX: R11.2 Nausea with vomiting, unspecified (principal); R19.7 Diarrhea, unspecified; E86.0 Dehydration; F41.9 Anxiety disorder, unspecified; K21.9 Gastro-esophageal reflux disease without esophagitis; Z79.899 Other long term (current) drug therapy; Z87.891 Personal history of nicotine dependence
CPT/HCPCS: 80048; 80076; 83690; 84703; 85025; 96374; 96375; 99283; J7030; A4216; J2405

== ENCOUNTER → 2023-03-20 | Outpatient (CLI) | payer BC, SELFPAY ==
[2023-03-29 00:06] LABS: HPV APTIMA, High Risk Positive (Negative); HPV Genotype 16, Aptima Negative (Negative); HPV Genotype 18,45 Aptima Negative (Negative)
== END | disposition home or self-care (01) ==
LOC: LABSPEC 14:54
PROVIDERS: PCP Family Medicine; Visit Provider Student in an Organized Health Care Education/Training Program
DX: Z12.4 Encounter for screening for malignant neoplasm of cervix (principal)
CPT/HCPCS: 87624; 88175; G0145

== ENCOUNTER → 2023-04-05 | Outpatient (CLI) | payer BC, SELFPAY ==
--- NOTE | 2023-04-05 13:14 | US_ITS ---
STUDY: SUPERFICIAL ULTRASOUND - LEFT GROIN REASON FOR EXAM: Female, 38 years old. LL LIMB PAIN TECHNIQUE: A superficial ultrasound of the groin was performed with real-time and static arambula-scale imaging. COMPARISON: None. FINDINGS: There are 2 lymph nodes identified measuring 1.3 x 1.6 x 0.5 cm and 0.9 x 0.8 x 0.6 centimeters most likely benign.. No other cystic or solid mass. Normal appearance of the visualized portions of the femoral arteries and veins US/Ext Non Vasc Limited/Soft Tiss IMPRESSION: Mildly enlarged left inguinal nodes most likely benign. Clinical correlation recommended Electronically Signed: Minisetrio Bains MD at 22:58 EDT ,
== END | disposition home or self-care (01) ==
PROVIDERS: PCP Family Medicine; Referring Provider Student in an Organized Health Care Education/Training Program; Visit Provider Student in an Organized Health Care Education/Training Program
DX: R10.2 Pelvic and perineal pain (principal); R22.42 Localized swelling, mass and lump, left lower limb
CPT/HCPCS: 76882

== ENCOUNTER 2023-05-02 09:40 | Day surgery (SDC) | payer BC, SELFPAY ==
[2023-05-02] VITALS (8 sets, daily range): BP systolic 91–130; BP diastolic 44–83; PULSE 65–82; RESP 12–18; TEMP 36.6; O2SAT 92–100; BMI 29.2
--- NOTE | 2023-05-02 10:11 | HP.PCM_ITS ---
History and Physical Date of Admission: 05/02/23 Date of Service:? 04/14/23 MR#: [id number] Acct: [id number] Name:ALBINA CHICAS Rep #: [id number] : 1985 ? ? Provider: Dr. Simona Hayes MD Age/Sex:? 38/F ? ? Location: [facility] Status: Signed Intake Vital Signs ? 01/05/2321:55 04/14/2313:20 Height 5 ft 3 in 5 ft 3 in Weight: 160 lb 164 lb 2 oz BMI 28.3 29.0 BP 114/58 L 134/83 H Blood Pressure Location ? Rt brachial Position ? Sitting Respiration 18 17 Pulse 129 H 92 Pulse Source ? Monitor Temp 96.3 F L ? Temp Source Temporal ? Pulse Oximetry (%) 100 ? Intake Visit Reasons:?ENLARGED LYMPH NODES IN GROIN Chief Complaint: enlarged lymph nodes in groin Allergies amoxicillin trihydrate [From Augmentin] Adverse Reaction (Verified 08/13/22 10:00) Diarrheapotassium clavulanate [From Augmentin] Adverse Reaction (Verified 08/13/22 10:00) Diarrhea Medications escitalopram oxalate 10 mg tablet 10 mg PO DAILY 11/25/20 [History Confirmed 04/14/23] pantoprazole 40 mg tablet,delayed release 40 mg PO DAILY 11/25/20 [History Confirmed 04/14/23] PFSH Medical History? Anxiety Carpal tunnel syndrome Former smoker GERD (gastroesophageal reflux disease) Hyperlipemia Kidney stone Surgical History? History of Social History? household members:? spouse and children Smoking Status:? Former smoker substance use type:? does not use HPI HPI HPI: 38-year-old female presents due to left groin pain/enlarged lymph nodes per ultrasound.? Patient states that for several months she has been having some dull pain in her left groin that could occasionally be worse with walking for long periods, patient denies a bulge in the groin.? Patient ultrasound this area which called some mildly enlarged left inguinal nodes most likely benign. ROS General General: No weight change, appetite, fatigue, colon cancer or breast cancer HEENT HEENT: No difficulty swallowing, eye injury, eye surgery, swollen glands or hoarseness Endo Endocrine: No thyroid disease, diabetes mellitus, thyroid cancer, Hair loss, heat intolerance or cold intolerance Skin Skin: No rash or changing moles Musc Musculoskeletal: No back problems, arthritis, rheumatoid arthritis, gout or joint pain Cardio Cardiovascular: No murmur, pacemaker, heart disease, atrial fibrillation, high blood pressure, heart attack, heart stent, palpitations, shortness of breat with exertion or chest pain Psych Psychiatric: Yes anxiety; No depression or hearing voices Resp Respiratory: No shortness of breath, No sleep apnea, No cough, No COPD, No asthma, No emphysema and No wheezing Gastro Gastrointestinal: No abdominal pain, No nausea or vomiting, No diarrhea, No constipation, No blood in stool, Yes acid reflux, No hemorrhoids, No ulcers, No gallbladder problem and No black,tarry stools Mitch Hematologic: No blood thinners, No blood disorders, No bleeding, No anemia and No blood clots Neuro Neurologic: No numbness and No tingling Exam Const General: cooperative, healthy appearing and no acute distress HENMT Head: normal to inspection Resp Effort & Inspection: normal respiratory effort Cardio Rate: regular rate GI Inspection: non-distended Palpation: soft, no guarding and nontender Other: Initially no hernias appreciated on exam; however bedside ultrasound did show a small left inguinal hernia adjacent to the pubic bone but it was immediately reduced on its own after patient coughed.? No inguinal hernia appreciated on the right Skin General: no rashes or lesions noted Neuro General: patient oriented x3 Extrem General: no clubbing, cyanosis or edema Psych Affect: normal affect Assessment and Plan Assessment and Plan (1) Left inguinal hernia: ?Status:?Acute Plan Discussed with patient that I would not be concerned about her inguinal nodes as I do appear benign would not recommend follow-up as bedside ultrasound office did show a small left inguinal hernia which would likely be the cause of her discomfort and does clinically fit as well.? Discussed with patient that if this were to become worse she would have more pain and she would likely also feel or see a bulge.? Discussed with patient this does not urgently need to be fixed but again if it has more issue in the future this can be repaired surgically.? Patient was agreeable with following up-as needed Simona Hayes M.D. Pager: [phone] [facility] [address] [place] [address], [facility], [address] [place] [address] Office: [phone] Coding Level of Care Code Off vis,new,level 3 Diagnoses Left inguinal hernia? K40.90 04/16/23 0733 <Electronically signed by Simona Hayes MD> Date Simona Hayes MD
[2023-05-02] MEDS: Lactated Ringers 1,000 ML 15 ML IV ×2 (10:24→12:45)
[2023-05-02] MEDS: Clindamycin 900 MG/50 ML BAG 75 MG IV (11:40)
[2023-05-02] MEDS: Bupivacaine Mpf 0.5% 30 ML VIAL (12:10)
--- NOTE | 2023-05-02 12:10 | OP.PCM_ITS ---
Report of Operation Date of Procedure: 05/02/23 Pre-Operative Diagnosis: Left groin pain, left inguinal hernia Post-Operative Diagnosis: Left groin pain Surgery/Procedure Performed:: Diagnostic laparoscopy Description of Surgical Findings:: No bilateral inguinal hernias seen Surgeon: Simona Hayes template storage clerk: Sharmin Kathleen Type of Anesthesia: General/Supplemental Anesthesiologist: Darnell Quinones Special Medications: Clindamycin 900 mg IV x1 Specimen's removed: None Estimated Blood Loss (mL): < 5 cc Description of Procedure: Patient presents to the operating placed spine on operating table. Timeout was completed verifying correct patient, procedure, site, positioning, special equipment prior began procedure. General anesthesia was induced. Abdomen was prepped and draped in usual sterile fashion with arms tucked and appropriately padded. Incision was made below the umbilicus with a 15 blade scalpel this was deepened to the fascia. The fascia was elevated and incised under direct visualization. Entry into the abdomen was confirmed visually Vora trocar was placed. Abdomen insufflated with 12 to 15 mmHg, patient tolerated insufflation well. Laparoscope was placed. No injuries confirmed upon entry. No inguinal hernia was seen in either the left or right groin. Patient was retaken. Abdomen was allowed to collapse. Vora trocar removed and fascia closed with 0 Vicryl [id number] suture. Skin was sutured with 4-0 Monocryl. Local anesthesia 0.5 Marcaine 15 cc throughout the case. Patient was extubated. Patient tolerated procedure well was taken the postanesthesia care in stable co ndition. Complications none
--- NOTE | 2023-05-02 12:16 | DCINST_ITS ---
Discharge Instructions Diet Discharge Diet: Light diet - advance as tolerated Activity Discharge Activity: May Not Drive (while taking narcotic pain medications.) May shower in (days): 1 Lifting Restrictions: no lifting >20 lbs x 2 wks, no strenuous exercise for 4 wks Dressing / Incision Call your doctor if your incision/area has: Continuous Slow Oozing, Sudden Increased Bleeding, Increased Pain/ Swelling, Increased Redness, Foul Smelling Discharge and Swelling at the incision site Call your doctor if you observe: Fever of 101 or Higher Remove Dressing in: 2 days Cleanse incision/area with: Soap & Water Additional Dressing/Incision Instructions:: Steri-Strips will fall off in 7 to 10 days, if they do not fall off okay to remove after 10 days. Follow Up Care Please Follow Up With: Simona Hayes MD When: Call the office for a follow-up appointment 2 weeks; after 5 PM and on the weekends call [phone] with any concerns. Test Results: Test results from this visit will be discussed in further detail at your follow- up appointment, if applicable. Discharge Plan Admission Attending Provider: Simona Hayes Primary Care Provider: Huber Pompa Discharge Orders/Prescriptions Prescriptions: New oxycodone-acetaminophen 5-325 mg tablet 1 - 2 tab PO Q6H PRN (Reason: pain) 3 Days Qty: 14 0RF Continued pantoprazole 40 MG tablet 40 mg PO DAILY escitalopram oxalate 10 MG tablet 20 mg PO DAILY Discontinued oxycodone-acetaminophen 5-325 mg tablet 1 tab PO PRN PRN (Reason: Pain) Label Comments: TAKE 1 TABLET BY MOUTH THREE TIMES A DAY NEEDED FOR PAIN Referrals / Follow Up: Huber Pompa MD [Primary Care Provider] - Disposition Disposition (needs filled in before D/C Order can be placed): Home, Self Care
== END 2023-05-02 14:39 | disposition home or self-care (01) ==
LOC: SDC 09:44 → AC 09:45
PROVIDERS: PCP Family Medicine; Referring Provider Surgery; Visit Provider Surgery
PROC: (CPT 49650; principal; 2023-05-02 11:15)
DX: R10.30 Lower abdominal pain, unspecified (principal); R59.0 Localized enlarged lymph nodes; F41.9 Anxiety disorder, unspecified; K21.9 Gastro-esophageal reflux disease without esophagitis; Z79.899 Other long term (current) drug therapy; Z87.891 Personal history of nicotine dependence
CPT/HCPCS: 49320; 00840; J7120; J2405

== ENCOUNTER → 2023-09-21 | Outpatient (CLI) | payer BC, SELFPAY ==
[2023-09-21 17:35] LABS: Absolute Lymphocyte Count 1.46 X10^3/uL (0.83-4.51); Absolute Neutrophil Count 2.8 X10^3/uL (2.0-7.7); Basophil# 0.03 X10^3/uL; Basophil% 0.6 % (0-1); Eosinophil# 0.05 X10^3/uL; Hematocrit 38.5 % (37-47); Hemoglobin 12.6 g/dL (12.0-15.0); Lymphocyte # 1.46 X10^3/ul (0.83-4.51); Lymphocyte % 30.3 % (19-41); Mean Corp Hgb Conc 32.7 g/dL (32-36); Mean Corpuscular Volume 94.6 fL (81-99); Mean Platelet Vol. 11.3 fl (6.2-12.0); Monocyte# 0.44 X10^3/uL; Monocyte% 9.1 % (0-10); NRBC Flagged by Analyzer 0 % (0-5); Neutrophil # 2.84 X10^3/uL (2.7-7.7); Platelet Count 270 K/mm3 (150-450); RBC Distribution Width CV 12.9 % (11.6-14.6); RBC Distribution Width SD 44.7 fl (35.1-43.9); Red Blood Count 4.07 M/mm3 (4.2-5.4); White Blood Count 4.8 K/mm3 (4.4-11.0)
[2023-09-21 18:03] LABS: AST(SGOT) 11 U/L (15-37); Alanine Aminotransfer ALT/SGPT 21 U/L (13-56); Albumin, Serum 3.7 g/dL (3.2-5.0); Alkaline Phosphatase 43 U/L (45-117); Anion Gap 7 (5-15); BUN 8 mg/dL (7-18); BUN/Creat Ratio 11.4 RATIO (10-20); CRP < 2.90 mg/L (0.0-3.0); Calcium,Total 9.2 mg/dL (8.5-10.1); Chloride 106 mmol/L (98-107); EST Glomerular Filtration Rate 99 mL/min (>60); Est Glom Filt Rate - Afr Amer 119 mL/min (>60); Globulin 3.6 g/dL (2.2-4.2); Glucose 104 mg/dL (74-106); Potassium 3.9 mmol/L (3.5-5.1); Protein, Total 7.3 g/dL (6.4-8.2); Sodium Level 140 mmol/L (136-145)
[2023-09-21 18:05] LABS: Erythrocyte Sedimentation Rate 3 mm/hr (0-30)
== END | disposition home or self-care (01) ==
PROVIDERS: PCP Family Medicine; Referring Provider Family Medicine; Visit Provider Family Medicine
DX: R10.2 Pelvic and perineal pain (principal)
CPT/HCPCS: 36415; 80053; 85025; 85652; 86140

== ENCOUNTER → 2023-11-14 | Outpatient (CLI) | payer BC, SELFPAY ==
--- NOTE | 2023-11-14 16:10 | MRI_ITS ---
EXAM: MR Pelvis Without and With Intravenous Contrast CLINICAL INDICATION: 38 years old, Female; Pelvic pain TECHNIQUE: Multiplanar and multisequence MR images of the pelvis without and with intravenous contrast. CONTRAST: IV 15ML CLARISCAN COMPARISON: No relevant prior studies available. FINDINGS: Appendix: Not visualized. No evidence of acute appendicitis. Intraperitoneal space: Physiological amount of free fluid noted within the pelvis. Bladder: Normal. Ovaries: Left ovary measures 2.5 x 2.0 x 2.3 cm. Right ovary measures 2.1 x 2.1 x 2.2 cm. Subcentimeter follicles noted within both ovaries. Uterus/cervix: Uterus is retroflexed measuring 9.1 x 4.7 x 4.7 cm. Endometrial thickness is 7 mm. Subcentimeter nabothian cysts are present. Bones/joints: Normal. Soft tissues: Normal. No pelvic wall hernia. Vasculature: Prominent parametrial vessels suggest pelvic venous insufficiency. Lymph nodes: Normal. No enlarged lymph nodes. MRI/Pelvis W/WO Contrast IMPRESSION: 1. Mildly enlarged retroflexed uterus. 2. Question pelvic venous insufficiency. Electronically Signed: Luis Fernando Bone MD at 8:14 EST ,
== END | disposition home or self-care (01) ==
LOC: MRI 16:06
PROVIDERS: PCP Family Medicine; Referring Provider Family Medicine; Visit Provider Family Medicine
DX: R10.2 Pelvic and perineal pain (principal)
CPT/HCPCS: 72197; A9575

== ENCOUNTER 2024-02-21 06:52 | Day surgery (SDC) | payer BC, SELFPAY ==
[2024-02-20 08:22] VITALS: BMI 24.7
[2024-02-21 07:11] LABS: Hematocrit 37.5 % (37-47); Hemoglobin 12.6 g/dL (12.0-15.0); Mean Corp Hgb Conc 33.6 g/dL (32-36); Mean Corpuscular Hgb 31.7 pg (27.0-32.0); Mean Corpuscular Volume 94.5 fL (81-99); Mean Platelet Vol. 10.2 fl (6.2-12.0); Platelet Count 271 K/mm3 (150-450); RBC Distribution Width CV 13.1 % (11.6-14.6); RBC Distribution Width SD 45.1 fl (35.1-43.9); Red Blood Count 3.97 M/mm3 (4.2-5.4); White Blood Count 4.2 K/mm3 (4.4-11.0)
[2024-02-21 07:26] LABS: Anion Gap 4 (5-15); BUN 9 mg/dL (7-18); BUN/Creat Ratio 13.6 RATIO (10-20); Calcium,Total 8.7 mg/dL (8.5-10.1); Chloride 106 mmol/L (98-107); Creatinine, Serum 0.66 mg/dL (0.55-1.02); EST Glomerular Filtration Rate 106 mL/min (>60); Est Glom Filt Rate - Afr Amer 128 mL/min (>60); Estimated Creatinine Clearance 103.71 ml/min; Glucose 96 mg/dL (74-106); Potassium 4.2 mmol/L (3.5-5.1); Sodium Level 139 mmol/L (136-145)
--- NOTE | 2024-02-21 07:55 | HP.PCM_ITS ---
HPI - General HPI Narrative ALBINA AGUSTIN, is a 38 F who presents with pelvic and proximal thigh discomfort worse with menses. She has imaging that suggests pelvic venous congestion and dilated ovarian veins. She presents now for venogram with possible ovarian vein coil embolization, possible iliac vein stenting [facility] Medical History Anxiety Carpal tunnel syndrome Dietary restriction Former smoker Gastric reflux GERD (gastroesophageal reflux disease) High cholesterol History of echocardiogram Hyperlipemia Kidney stone Migraine headache Home Medications escitalopram oxalate 10 mg tablet 20 mg PO DAILY 11/25/20 [History Last Taken Unknown] Allergy/AdvReac Type Severity Reaction Status Date / Time amoxicillin trihydrate AdvReac Diarrhea Verified 05/15/23 09:16 [From Augmentin] potassium clavulanate AdvReac Diarrhea Verified 05/15/23 09:16 [From Augmentin] Family History Other Myocardial infarction Sudden cardiac Surgical History History of bilateral carpal tunnel release History of History of esophagogastroduodenoscopy (EGD) Hx of tubal ligation Hx of wisdom tooth extraction S/P inguinal hernia repair S/P laparoscopy Social History household members: spouse and children Smoking Status: Former smoker substance use type: does not use ROS Constitutional Constitutional: Denies chills, fever(s), frequent falls, lethargy or weakness Eyes Eyes: Denies blind spots, change in vision or loss of vision ENT HEENT: Denies bleeding gums, hoarseness or sore throat Cardiovascular Cardiovascular: Denies abdominal pain, bluish discoloration of hand/feet, chest pain with activity, claudication, cold extremities, cyanosis, dyspnea on exertion, erythema on extremities, irregular heart rhythm, leg edema, leg ulcers, numbness in extremities or weakness in extremities Respiratory/Chest Respiratory/Chest: Denies cough, excessive phlegm production, shortness of breath at rest, shortness of breath with exertion or wheezing Gastrointestinal Gastrointestinal: Denies anorexia, change in stool character, constipation, diarrhea, melena or rectal bleeding Genitourinary Genitourinary: Denies dysuria or hematuria Musculoskeletal Musculoskeletal: Denies abnormal gait Integumentary Integumentary: Reports other Details: ; Denies erythema, non-healing lesions or wounds Neurologic Neurologic: Denies abnormal speech, focal weakness, headache(s), loss of vision, numbness, paresthesias or sensory deficit Hematologic/Lymphatic Hematologic/Lymphatic: Denies easy bleeding, easy bruising or lymphadenopathy Vital Signs Vital Signs Vital Signs: Weight Weight: 140 lb Body Mass Index (BMI) 24.7 Physical Exam Const alert, oriented x3, no apparent distress and healthy appearing General Appearance: cooperative; Negative for combative or lethargic Orientation / Consciousness: awake Exam Limitations: no limitations HEENT Head and Scalp: normocephalic and atraumatic Eyes EOMs intact bilaterally General Eye: normal appearance of both eyes Neck full ROM, no lymphadenopathy, thyroid normal and No no carotid bruits General: trachea midline; Negative for lymphadenopathy or tenderness Thyroid: thyroid normal Lymph Lymphatic: Negative for no lymphadenopathy noted Resp normal respiratory effort and no use of accessory muscles Effort and Inspection: Negative for labored, stridor or audible wheezes Cardio regular rate and regular rhythm Back/Spine Cervical Spine: cervical ROM normal Extremity full ROM, normal capillary refill and no clubbing, cyanosis or edema Skin no rashes or lesions noted and no wounds Neuro oriented x3, CN's II-XII intact bilaterally, no focal motor deficits and no sensory deficits noted Psych thought process normal, cooperative, affect normal, speech normal and activi ty/motor behavior normal Results Lab / Micro Data 02/21/24 06:57 02/21/24 06:57 Labs: Laboratory Results - last 24 hr 02/21/24 06:57: WBC 4.2 L, RBC 3.97 L, Hgb 12.6, Hct 37.5, MCV 94.5, MCH 31.7, MCHC 33.6, RDW Std Deviation 45.1 H, RDW Coeff of Autumn 13.1, Plt Count 271, MPV 10.2, Sodium 139, Potassium 4.2, Chloride 106, Carbon Dioxide 29.0, Anion Gap 4 L, BUN 9, Creatinine 0.66, Estim Creat Clear Calc 103.71, Est GFR (MDRD) Af Amer 128, Est GFR (MDRD) Non-Af 106, BUN/Creatinine Ratio 13.6, Glucose 96, Calcium 8.7 Assessment & Plan Assessment/Plan (1) Pelvic congestion syndrome: PLAN: -venogram
--- NOTE | 2024-02-21 10:18 | PCM.OPRPT ---
Report of Operation Date of Procedure: 02/21/24 Pre-Operative Diagnosis: pelvic congestion syndrome Post-Operative Diagnosis: same, bilateral common iliac vein compression Surgery/Procedure Performed:: Venogram IVC, left renal vein/ovarian vein IVUS IVC, bilateral common/external iliac vein Angioplasty/stent IVC, bilateral common iliac, left external iliac vein Surgeon: Darnell Cabrera Type of Anesthesia: Local and Sedation,Conscious Estimated Blood Loss (mL): 2 Description of Procedure: HPI: Patient is a 38-year-old female with complaints of pelvic pain and discomfort worse with her menstrual cycle and with standing. She had imaging that suggested enlarged ovarian veins as well as revealed intrapelvic varicosities. She presents now for venogram to assess for ovarian vein reflux as well as for iliac vein compression. Description of procedure: Upon obtaining form consent and verification correct patient procedure site patient was taken to the [facility] where she was positioned prepped and draped in usual sterile fashion. Time was performed conscious sedation administered Versed and fentanyl. Skin overlying the right common femoral vein was anesthetized 1% lidocaine the vessel accessed with a micropuncture needle wire and ultrasound guidance. This then changed out for a micropuncture sheath through which injection ilio caval venogram was performed revealing satisfactory positioning with no extravasation dissection. This also revealed a fairly normal-appearing right iliac vein system with brisk contrast transit. Through the micropuncture sheath a [employer] wire was advanced the micropuncture sheath exchanged for an 8 Azerbaijani sheath. Through the 8 Azerbaijani sheath and Omni Flush catheter advanced into the inferior vena cava and a hand-injection venacavogram was performed which revealed the confluence of the left renal vein as well as normal vena cava caliber with no luminal irregularity. Using a glide advantage wire and the Omni Flush catheter then selectively cannulated the left renal vein advancing the wire into the vessel at the hilum. The Omni Flush catheter then exchanged for a angled glide catheter which was advanced over the wire and positioned in the mid renal vein. Hand-injection renal vein venogram was then performed revealed brisk contrast egress with no significant reflux into the ovarian vein. We then selectively cannulated the ovarian vein and repeat imaging was performed which again revealed no retrograde contrast which further confirmed that there was no significant reflux. Withdrawn into the inferior vena cava catheter withdrawn. Intravascular ultrasound probe advanced over the wire and recorded pullback performed of the IVC, right common iliac vein, right external iliac vein. This revealed moderate compression that did not quite meet threshold for treatment however this did reveal significant underfilling of the IVC with a lumen caliber significantly less than normal. Neck skin overlying the left femoral vein was anesthetized with 1% lidocaine the vessel accessed with micropuncture needle wire and ultrasound guidance. This exchanged for micropuncture sheath routine injection ilio caval venogram was performed which revealed widening and possible dual lumen of the common iliac vein with contrast reflux into the internal iliac vein and its branches which were enlarged in caliber. This suggested possible compression so the [employer] wire was then advanced and the micropuncture sheath exchanged for a 9 Azerbaijani sheath. Through the 9 Azerbaijani sheath intravascular shunt probe was advanced and recorded pullback performed of the IVC, left common iliac vein, left external iliac vein. This confirmed significant compression of 70% of the common iliac vein. This did not adequately determine if there was a dual system however it appeared that we were in the larger of the 2 caliber vessels of the common iliac if it was indeed a dual system. It was felt that this degree of compression warranted treatment and with the moderate compression on the right and decompressed inferior vena cava that treatment of the IVC confluence was appropriate. The right femoral 8 Azerbaijani sheath then exchanged for a 9 Azerbaijani sheath and the patient was in heparinized allowed circulate for 3 minutes. The intravascular ultrasound probe was then utilized to jensen zones of compression as well as return to normal caliber. Length measurements were then obtained. A [employer]ilver Vena 12 x 60 was then advanced via the left femoral access sheath and deployed in the inferior aspect of the common iliac vein into the proximal external iliac vein. This was then postdilated with a 10 mm x 40 angioplasty balloon inflated to nominal and then deflated withdrawn. Next a pair of [employer] wallstents 14 x 90 were then advanced through the bilateral femoral sheaths and aligned within the vena cava. The left sided Wallstent had adequate overlap into the initially placed external iliac vein stent. These were then deployed simultaneously and then postdilated with a 12 mm x 40 angioplasty balloon to nominal stented segment. Repeat intravascular ultrasound imaging revealed satisfactory stent positioning with no residual compression and good stent to wall apposition throughout. Completion venacavogram confirmed brisk contrast transit with no extravasation or dissection and no further filling of the internal iliac vein branches due to reflux. Wires were then withdrawn and silk suture placed at the access site after which the sheath withdrawn a minute pressure held for 5 minutes. Adequate hemostasis was noted and patient was taken the recovery room for bedrest prior to discharge to home.
[2024-02-21] MEDS: Ketorolac 30 MG/ML Syringe IV (10:24)
[2024-02-21] MEDS: oxyCODONE 5 MG Tablet PO (12:20)
== END 2024-02-21 12:50 | disposition home or self-care (01) ==
PROVIDERS: PCP Family Medicine; Referring Provider Surgery Trauma Surgery; Visit Provider Surgery Trauma Surgery
DX: I87.1 Compression of vein (principal); N94.89 Other specified conditions associated with female genital organs and menstrual cycle; F41.9 Anxiety disorder, unspecified; Z87.891 Personal history of nicotine dependence; Z79.899 Other long term (current) drug therapy; Z79.01 Long term (current) use of anticoagulants
CPT/HCPCS: 36010; 36415; 37238; 37239; 37252; 37253; 75825; 76937; 80048; 85027; 99152; 99153; C1753; C1769; C1876; C1894; J7030; J7040; Q9967; C1725; J2405

== ENCOUNTER → 2024-03-11 | Outpatient (CLI) | payer BC, SELFPAY ==
--- NOTE | 2024-03-11 08:03 | AAVD_ITS ---
Reason For Study: S/P IVC and iliac vein stenting Inferior Vena Cava Proximal inferior vena cava measures 1.25 x 1.01 cm. in the cross-sectional axis. Proximal inferior vena cava measures 1.06 cm. in the longitudinal axis. Mid inferior vena cava measures .87 x .86 cm. in the cross-sectional axis. Mid inferior vena cava measures .92 cm. in the longitudinal axis. Distal inferior vena cava measures .92 x 1.06 cm. in the cross-sectional axis. Distal inferior vena cava measures 1.01 cm. in the longitudinal axis. The inferior vena cava has spontaneous, phasic flow throughout. Left Common Iliac Vein Left common iliac vein measures .88 x .98 cm. in the cross-sectional axis. Left common iliac vein measures .96 cm. in the longitudinal axis. The left common iliac vein has spontaneous, phasic flow throughout. Right Common Iliac Vein Right common iliac vein measures .93 x 1.06 cm. in the cross-sectional axis. Right common iliac vein measures 1.03 cm. in the longitudinal axis. The right common iliac vein has spontaneous, phasic flow throughout. Procedure Aorta IVC Iliac vasculature or bypass grafts [id number]. The exam was diagnostic. Exam performed in department. VL/Abd Aortic/IVC Duplex scan Interpretation Summary Patent inferior vena cava and bilateral common iliac vein stents Ordering Physician: Loretta Flores Referring Physician: Loretta Flores Performed By: Kj Bennett RVT
== END | disposition home or self-care (01) ==
LOC: CVS 08:02
PROVIDERS: PCP Family Medicine; Referring Provider Physician Assistant; Visit Provider Physician Assistant
DX: Z48.812 Encounter for surgical aftercare following surgery on the circulatory system (principal); I87.1 Compression of vein
CPT/HCPCS: 93978

== ENCOUNTER → 2024-03-19 | Outpatient (CLI) | payer BC, SELFPAY ==
[2024-03-19 17:52] LABS: Absolute Lymphocyte Count 1.13 X10^3/uL (0.83-4.51); Absolute Neutrophil Count 4.2 X10^3/uL (2.0-7.7); Basophil# 0.05 X10^3/uL; Basophil% 0.8 % (0-1); Eosinophil# 0.08 X10^3/uL; Eosinophils% 1.4 % (0-5); Hematocrit 37.3 % (37-47); Hemoglobin 12.5 g/dL (12.0-15.0); Lymphocyte # 1.13 X10^3/ul (0.83-4.51); Lymphocyte % 19.1 % (19-41); Mean Corp Hgb Conc 33.5 g/dL (32-36); Mean Corpuscular Hgb 31.1 pg (27.0-32.0); Mean Corpuscular Volume 92.8 fL (81-99); Mean Platelet Vol. 10.9 fl (6.2-12.0); Monocyte# 0.45 X10^3/uL; Monocyte% 7.6 % (0-10); NRBC Flagged by Analyzer 0 % (0-5); Neutrophil % 70.9 % (47-70); Platelet Count 256 K/mm3 (150-450); RBC Distribution Width CV 12.9 % (11.6-14.6); RBC Distribution Width SD 44.4 fl (35.1-43.9); Red Blood Count 4.02 M/mm3 (4.2-5.4); White Blood Count 5.9 K/mm3 (4.4-11.0)
[2024-03-19 18:03] LABS: Erythrocyte Sedimentation Rate 21 mm/hr (0-30)
[2024-03-19 18:24] LABS: AST(SGOT) 15 U/L (15-37); Alanine Aminotransfer ALT/SGPT 18 U/L (13-56); Albumin, Serum 3.9 g/dL (3.2-5.0); Alkaline Phosphatase 57 U/L (45-117); Anion Gap 6 (5-15); BUN 10 mg/dL (7-18); BUN/Creat Ratio 14.5 RATIO (10-20); CRP 8.04 mg/L (0.0-3.0); Calcium,Total 9.3 mg/dL (8.5-10.1); Chloride 104 mmol/L (98-107); Creatinine, Serum 0.69 mg/dL (0.55-1.02); EST Glomerular Filtration Rate 101 mL/min (>60); Est Glom Filt Rate - Afr Amer 122 mL/min (>60); Glucose 105 mg/dL (74-106); Potassium 3.4 mmol/L (3.5-5.1); Protein, Total 7.9 g/dL (6.4-8.2); Sodium Level 136 mmol/L (136-145)
== END | disposition home or self-care (01) ==
LOC: MFPLAB 16:41
PROVIDERS: PCP Family Medicine; Visit Provider Family Medicine
DX: R10.30 Lower abdominal pain, unspecified (principal)
CPT/HCPCS: 36415; 80053; 85025; 85652; 86140

== ENCOUNTER → 2024-04-08 | Outpatient (CLI) | payer BC, SELFPAY ==
--- NOTE | 2024-04-08 08:21 | CT_ITS ---
STUDY: CT ABDOMEN AND PELVIS WITH CONTRAST REASON FOR EXAM: Female, 39 years old. Acute pelvic pain RADIATION DOSAGE (If Supplied By Facility): CTDIvol = ( 10.79 ) mGy, DLP = ( 740.38 ) mGycm TECHNIQUE: Transaxial images were obtained from the dome of the diaphragm to the symphysis pubis without oral contrast. 100ML ISOVUE 300 was administered. Sagittal and coronal images were reconstructed. Individualized dose optimization techniques were used for this CT. COMPARISON: MR from 11/14/2023. FINDINGS: The visualized lung bases are unremarkable. The visualized portions of the heart are within normal limits. Normal liver. Normal gallbladder and extrahepatic biliary system. Normal spleen. Normal pancreas. Normal bilateral adrenal glands. Normal right kidney. Normal left kidney. Normal visualized stomach. Normal small intestine. Retained stool throughout the colon. There is non-visualization of the appendix. Normal abdominal aorta. Normal inferior vena cava, there are bilateral common iliac vein stents. No CT evidence of low-density thrombus within either common iliac vein but the IV bolus timing is not optimal for venous evaluation. No free fluid, air, or suspicious adenopathy. Normal urinary bladder. Uterus is again noted to be mildly enlarged with mildly dilated serpiginous vessels along the periphery of the uterus which can be seen with pelvic congestion. No suspicious adnexal mass or free fluid Normal abdominal wall. Normal osseous structures. CT/Abdomen/Pelvis WITH Contrast IMPRESSION: Stable enlargement of the uterus with subtle serpiginous vessels along its periphery which can be seen with pelvic congestion. No suspicious uterine mass. No suspicious adenopathy, or enlarged cystic mass or free fluid within the pelvis. No suspicious solid organ abnormality Retained stool noted throughout the colon Electronically Signed: Velasquez Moscoso MD at 8:52 EDT ,
== END | disposition home or self-care (01) ==
LOC: CT 08:21
PROVIDERS: PCP Family Medicine; Referring Provider Physician Assistant; Visit Provider Physician Assistant
DX: N94.89 Other specified conditions associated with female genital organs and menstrual cycle (principal); R10.2 Pelvic and perineal pain
CPT/HCPCS: 74177; Q9967

== ENCOUNTER 2024-07-18 09:24 | Day surgery (SDC) | payer BC, SELFPAY ==
[2024-07-17 07:54] VITALS: BMI 30.2
[2024-07-18 09:47] LABS: Internal QC Validated? YES +Cl - CLEAR BKGD; Pregnancy, Urine Negative Negative
--- NOTE | 2024-07-18 11:00 | PCM.HP.STD ---
HPI - General HPI Narrative ALBINA AGUSTIN, is a 39 F who presents with recurrent pelvic pain,fullness. Previously underwent venogram, IVUS, stenting of bilateral iliac compression that did not relieve symptoms. Left renal vein and ovarian vein were assessed at that time and the superior most valve appeared intact. CT scan reveals persistent varicosities around uterus and enlarged left ovarian vein. [facility] Medical History High cholesterol Migraine headache Dietary restriction Gastric reflux History of echocardiogram Kidney stone Carpal tunnel syndrome Anxiety GERD (gastroesophageal reflux disease) Former smoker Hyperlipemia Home Medications ?Medication ?Instructions ?Recorded ?Last Taken ?Type escitalopram oxalate 10 mg tablet 20 mg PO DAILY 11/25/20 Unknown History aspirin 81 mg tablet,delayed 81 mg PO DAILY 02/27/24 07/17/24 History release pantoprazole 40 mg tablet,delayed 40 mg PO DAILY 02/27/24 Unknown History release (Protonix) clopidogrel 75 mg tablet (Plavix) 75 mg PO .daily #90 tabs 03/13/24 07/17/24 Rx hydrocodone 5 mg-acetaminophen 300 2 tab PO DAILY 05/22/24 Unknown History mg tablet Allergy/AdvReac Type Severity Reaction Status Date / Time amoxicillin trihydrate (From AdvReac Diarrhea Verified 05/22/24 15:58 Augmentin) potassium clavulanate (From AdvReac Diarrhea Verified 05/22/24 15:58 Augmentin) Family History Other Myocardial infarction Sudden cardiac Surgical History S/P laparoscopy S/P inguinal hernia repair History of esophagogastroduodenoscopy (EGD) Hx of wisdom tooth extraction History of bilateral carpal tunnel release Hx of tubal ligation History of Social History household members: spouse and children Smoking Status: Former smoker substance use type: does not use ROS Constitutional Constitutional: Denies chills, fever(s), frequent falls, lethargy or weakness Eyes Eyes: Denies blind spots, change in vision or loss of vision ENT HEENT: Denies bleeding gums, hoarseness or sore throat Cardiovascular Cardiovascular: Denies abdominal pain, bluish discoloration of hand/feet, chest pain with activity, claudication, cold extremities, cyanosis, dyspnea on exertion, erythema on extremities, irregular heart rhythm, leg edema, leg ulcers, numbness in extremities or weakness in extremities Respiratory/Chest Respiratory/Chest: Denies cough, excessive phlegm production, shortness of breath at rest, shortness of breath with exertion or wheezing Gastrointestinal Gastrointestinal: Denies anorexia, change in stool character, constipation, diarrhea, melena or rectal bleeding Genitourinary Genitourinary: Denies dysuria or hematuria Musculoskeletal Musculoskeletal: Denies abnormal gait Integumentary Integumentary: Reports other Details: ; Denies erythema, non-healing lesions or wounds Neurologic Neurologic: Denies abnormal speech, focal weakness, headache(s), loss of vision, numbness, paresthesias or sensory deficit Hematologic/Lymphatic Hematologic/Lymphatic: Denies easy bleeding, easy bruising or lymphadenopathy Vital Signs Vital Signs Vital Signs: Weight Weight: 171 lb Body Mass Index (BMI) 30.2 Physical Exam Const alert, oriented x3, no apparent distress and healthy appearing General Appearance: cooperative; Negative for combative or lethargic Orientation / Consciousness: awake Exam Limitations: no limitations HEENT Head and Scalp: normocephalic and atraumatic Eyes EOMs intact bilaterally General Eye: normal appearance of both eyes Neck full ROM, no lymphadenopathy and thyroid normal General: trachea midline; Negative for lymphadenopathy or tenderness Thyroid: thyroid normal Resp normal respiratory effort and no use of accessory muscles Effort and Inspection: Negative for labored, stridor or audible wheezes Cardio regular rate, regular rhythm and no murmurs Back/Spine Cervical Spine: cervical ROM normal Extremity full ROM, normal capillary refill and no clubbing, cyanosis or edema Skin no rashes or lesions noted and no wounds Neuro oriented x3, CN's II-XII intact bilaterally, no focal motor deficits and no sensory deficits noted Psych thought process normal, cooperative, affect normal, speech normal and activity/motor behavior normal Results Lab / Micro Data Labs: Laboratory Results - last 24 hr 07/18/24 09:30: Urine Test Negative Assessment & Plan Assessment/Plan (1) Pelvic congestion syndrome: PLAN: -venogram, assess left renal vein and ovarian vein; coil if valve incompetent
--- NOTE | 2024-07-18 13:09 | PCM.OPRPT ---
Report of Operation Date of Procedure: 07/18/24 Pre-Operative Diagnosis: pelvic congestion syndrome Post-Operative Diagnosis: same Surgery/Procedure Performed:: venogram IVC, left renal vein, left ovarian vein IVUS left ovarian vein coil embolization left ovarian vein Surgeon: Darnell Cabrera Type of Anesthesia: Local and Sedation,Conscious Estimated Blood Loss (mL): 2 Description of Procedure: HPI: Patient is a 39-year-old female with pelvic pain and discomfort particularly in multiple varicosities adjacent to the uterus visualized on CT scan. She previously had undergone venogram with assessment of the iliac veins as well as the left renal vein and ovarian vein. This revealed significant compression of the bilateral common iliac veins but did not reveal any abnormality of the left renal vein or ovarian vein at the time. She underwent stenting of the iliac compression with no significant improvement in her symptoms. She returns now for repeat venogram and further efforts to define the ovarian vein pathology. A CT scan with contrast since the last procedure had been obtained which revealed a significantly dilated left ovarian vein. Description of procedure: Upon obtaining form consent verification correct patient procedure site patient taken to the [facility] Super[facility] she was positioned prepped and draped in usual sterile fashion. Timeouts performed, sedation administered with Versed and fentanyl. Skin overlying the right common femoral vein was Nestabs 1% lidocaine with distal axis and approximately wire. This exchanged for micropuncture sheath which injection lidocaine numbing was performed to reveal satisfactory position no extravasation or dissection. This also revealed patent right iliac vein stent with no stenosis or recurrent compression and normal contrast transit into a normal vena cava. The micropuncture sheath Bentson wire is advanced and micropuncture sheath exchanged for a 6 Armenian sheath. Through a 6 Armenian sheath a C2 catheter and Bentson wire were used to navigate into the left renal vein. Hand-injection subtraction angiography of the left renal vein was performed revealed normal caliber vessel with no obstruction and brisk contrast egress. This did reveal some reflux of contrast into the proximal ovarian vein which was not visualized on the prior invasive imaging. Bentson wire was then readvanced catheter and 6 Armenian sheath and exchanged for a 6 Armenian Ansell 2 sheath was advanced into position and into the renal vein. From this position utilizing an angled Glidewire and a CT catheter. The navigated into the left ovarian vein advancing the catheter without any resistance into the midportion of the vein. The large zoledronic injection angiography revealed satisfactory positioning of the ovarian vein which was significantly dilated with very slow contrast transit which was indicative of valvular insufficiency contributing to her pelvic congestion symptoms. There also were significant varicosities at the inferior aspect of the ovarian vein adjacent to the uterus and the pelvis. Staley that this was the primary etiology of her pelvic congestion and pelvic varicosities and embolization was indicated. An 018 wire and Coronel catheter were then utilized to navigate into the inferior aspect of the ovarian vein within the pelvis and the catheter withdrawn. Intravascular sound probe was then advanced over the wire and recorded pullback performed which confirmed presence within the main ovarian vein and there were several accessory branches at the confluence in the lower abdomen with significant increase in caliber at this location. There is also provided a reference vessel sizing. The catheter was then withdrawn and the Coronel cath advanced a wire and positioned at the inferior aspect of our intended coil embolization segment. Coils were then advanced and deployed initially 6 mm coils packed into the inferior aspect of the ovarian vein. At the size transition to large vessel we then transition to 8 mm coils for total of 6 coils implanted. Completion venography from injection within the renal vein revealed no contrast reflux down into the ovarian vein and satisfactory coil embolization of vessel. Wires and catheters are drawn and sheath withdrawn followed by manual pressure until hemostasis was obtained. Patient was then taken to the recovery room with dissipated discharge home.
== END 2024-07-18 14:35 | disposition home or self-care (01) ==
PROVIDERS: PCP Family Medicine; Referring Provider Surgery Trauma Surgery; Visit Provider Surgery Trauma Surgery
DX: N94.89 Other specified conditions associated with female genital organs and menstrual cycle (principal); F41.9 Anxiety disorder, unspecified; K21.9 Gastro-esophageal reflux disease without esophagitis; Z87.891 Personal history of nicotine dependence; Z79.82 Long term (current) use of aspirin; Z79.899 Other long term (current) drug therapy; Z79.02 Long term (current) use of antithrombotics/antiplatelets
CPT/HCPCS: 36010; 37241; 37252; 75825; 76937; 81025; 99152; 99153; C1753; C1769; C1894; J7040; C1887

== ENCOUNTER → 2024-08-19 | Outpatient (CLI) | payer BC, SELFPAY ==
--- NOTE | 2024-08-19 07:55 | AAVD_ITS ---
Reason For Study: s/p Iliac Vein Stents Inferior Vena Cava Proximal inferior vena cava measures 0.64cm x 1.44 cm. in the cross-sectional axis. Proximal inferior vena cava measures 0.99 cm. in the longitudinal axis. Mid inferior vena cava measures 1.09cm x 2.19 cm. in the cross-sectional axis. Mid inferior vena cava measures 1.03 cm. in the longitudinal axis. Distal inferior vena cava measures 0.93cm x 2.25 cm. in the cross-sectional axis. Distal inferior vena cava measures 1.01 cm. in the longitudinal axis. The inferior vena cava has spontaneous, phasic flow throughout. Left Common Iliac Vein Left common iliac vein measures 0.90cm x 1.0 cm. in the cross-sectional axis. Left common iliac vein measures 1.07 cm. in the longitudinal axis. The left common iliac vein has spontaneous, phasic flow throughout. Right Common Iliac Vein Right common iliac vein measures 1.02cm x 1.20 cm. in the cross-sectional axis. Right common iliac vein measures 1.27 cm. in the longitudinal axis. The right common iliac vein has spontaneous, phasic flow throughout. Procedure Aorta IVC Iliac vasculature or bypass grafts [id number]. Exam performed in department. VL/Abd Aortic/IVC Duplex scan Interpretation Summary Patent inferior vena cava and bilateral iliac veins with normal venous flow pat tern. Ordering Physician: Loretta Flores Referring Physician: Delta Pompa Performed By: Lizette Medellin, YEISON, RVT
== END | disposition home or self-care (01) ==
LOC: CVS 07:55
PROVIDERS: PCP Family Medicine; Referring Provider Physician Assistant; Visit Provider Physician Assistant
DX: I87.1 Compression of vein (principal); Z48.812 Encounter for surgical aftercare following surgery on the circulatory system
CPT/HCPCS: 93978

== ENCOUNTER → 2024-09-04 | Outpatient (CLI) | payer BC, SELFPAY ==
--- NOTE | 2024-09-04 09:06 | AAVD_ITS ---
Reason For Study: S/P Iliac vein stents Inferior Vena Cava Proximal inferior vena cava measures 0.85 x 2.01 cm. in the cross-sectional axis. Proximal inferior vena cava measures 1.05 cm. in the longitudinal axis. Mid inferior vena cava measures 1.18 x 1.64 cm. in the cross-sectional axis. Mid inferior vena cava measures 0.95 cm. in the longitudinal axis. Distal inferior vena cava measures 1.28 x 2.16 cm. in the cross-sectional axis. Distal inferior vena cava measures 1.27 cm. in the longitudinal axis. The inferior vena cava has spontaneous, phasic flow throughout. Left Common Iliac Vein Left common iliac vein measures 0.99 x 1.03 cm. in the cross-sectional axis. Left common iliac vein measures 1.06 cm. in the longitudinal axis. The left common iliac vein has spontaneous, phasic flow throughout. CIV stent noted. EIV normal phasic flow noted. Right Common Iliac Vein Right common iliac vein measures 1.27 x 1.33 cm. in the cross-sectional axis. Right common iliac vein measures 1.27 cm. in the longitudinal axis. The right common iliac vein has spontaneous, phasic flow throughout. CIV stent noted. EIV normal phasic flow noted. Procedure Aorta IVC Iliac vasculature or bypass grafts [id number]. Preliminary report left on RN Voicemail. Exam performed in department. VL/Abd Aortic/IVC Duplex scan Interpretation Summary Inferior vena cava and bilateral iliac vein stents patent with normal venous fl ow pattern. Ordering Physician: Loretta Flores Referring Physician: Delta Pompa MD Performed By: Bre Hdez RVT
== END | disposition home or self-care (01) ==
LOC: CVS 09:05
PROVIDERS: PCP Family Medicine; Referring Provider Physician Assistant; Visit Provider Physician Assistant
DX: I87.1 Compression of vein (principal); Z48.812 Encounter for surgical aftercare following surgery on the circulatory system
CPT/HCPCS: 93978

== ENCOUNTER → 2024-09-05 | Outpatient (CLI) | payer BC, SELFPAY ==
--- NOTE | 2024-09-05 18:05 | CT_ITS ---
EXAM: CT ABDOMEN AND PELVIS WITHOUT AND WITH INTRAVENOUS CONTRAST CLINICAL INDICATION: L pelvic pain TECHNIQUE: Helically acquired images were obtained of the abdomen and pelvis without and with intravenous contrast. This CT exam was performed using one or more of the following dose reduction techniques: automated exposure control, adjustment of the mA and/or kV according to patient size, and/or use of iterative reconstruction technique. CONTRAST: 100mL Isovue 370 RADIATION DOSE: CTDIvol = 10.65 mGy, DLP = 1294.97 mGy-cm COMPARISON: No relevant prior studies available. FINDINGS: LOWER THORAX: Unremarkable. Lung bases are clear. No cardiomegaly. No significant pericardial effusion. ABDOMEN: LIVER: Subcentimeter hepatic hypodensity in the right lobe of the liver too small to characterize. This may represent a cyst or hemangioma. Ultrasound can initially evaluated. GALLBLADDER AND BILE DUCTS: Unremarkable. No calcified gallstones. No gallbladder distention or wall edema. No intra- or extrahepatic biliary ductal dilation. PANCREAS: Unremarkable. No focal cystic or solid mass. SPLEEN: Unremarkable. Normal size without focal cystic or solid mass. ADRENALS: Unremarkable. No nodules. KIDNEYS AND URETERS: Unremarkable. Normal renal size and position. No hydronephrosis. STOMACH AND BOWEL: Unremarkable. No stomach or bowel distention. No focal inflammatory change. PELVIS: APPENDIX: No evidence of acute appendicitis. BLADDER: Unremarkable. REPRODUCTIVE: Embolic coils in the left ovarian vein. Unremarkable uterus. ABDOMEN and PELVIS: INTRAPERITONEAL SPACE: Unremarkable. No ascites or other fluid collection. No free air. BONES/JOINTS: See below. SOFT TISSUES: Umbilical hernia containing fat. VASCULATURE: Inferior vena cava and common iliac stent graft visualized. This is patent. LYMPH NODES: Unremarkable. No enlarged lymph nodes. CT/CT Abd/Pelvis W/WO Contrast IMPRESSION: 1. Subcentimeter hepatic hypodensity in the right lobe of the liver too small to characterize. This may represent a cyst or hemangioma. Ultrasound can initially evaluated. 2. Embolic coils in the left ovarian vein. 3. Inferior vena cava and common iliac stent graft visualized. This is patent. Electronically Signed: Aren Encarnacion MD at 19:19 EDT ,
== END | disposition home or self-care (01) ==
LOC: CT 18:05
PROVIDERS: PCP Family Medicine; Referring Provider Physician Assistant; Visit Provider Physician Assistant
DX: R10.2 Pelvic and perineal pain (principal); I87.1 Compression of vein
CPT/HCPCS: 74178; Q9967

== ENCOUNTER → 2024-09-25 | Outpatient (CLI) | payer BC, SELFPAY ==
[2024-10-07 21:07] LABS: HPV APTIMA, High Risk Positive (Negative); HPV Genotype 16, Aptima Negative (Negative); HPV Genotype 18,45 Aptima Negative (Negative)
== END | disposition home or self-care (01) ==
LOC: LABSPEC 15:57
PROVIDERS: PCP Family Medicine; Referring Provider Nurse Practitioner Family; Visit Provider Nurse Practitioner Family
DX: Z12.4 Encounter for screening for malignant neoplasm of cervix (principal)
CPT/HCPCS: 87624; 88175; G0145

== ENCOUNTER → 2024-10-07 | Outpatient (CLI) | payer BC, SELFPAY ==
--- NOTE | 2024-10-07 14:19 | US_ITS ---
STUDY: ULTRASOUND OF THE FEMALE PELVIS - COMPLETE REASON FOR EXAM: Female, 39 years old. Pelvic pain LMP: August 27, 2024. TECHNIQUE: Transabdominal and Transvaginal TECHNICAL QUALITY: Adequate. COMPARISON: Comparison is made with prior study dated December 29, 2022. FINDINGS: The uterus is retroverted and is in a midline position. The uterus measures 7.7 cm x 4.9 cm x 4.4 cm. Normal uterine cervix. The endometrium measures 3.7 mm in thickness, and is hyperechoic. There is no demonstrated endometrial mass. There is no demonstrated myometrial mass. I.U.D. - The patient does not have an I.U.D. The right ovary is visualized. The right ovary measures 2.4 cm x 1.7 cm x 1.5 cm. There is no right ovarian cyst or ovarian mass. There is no visualized right adnexal mass or complex lesion. There is normal arterial and normal venous vascularity. The left ovary is visualized. The left ovary measures 2.8 cm x 2.6 cm x 1.6 cm. There is no left ovarian cyst or ovarian mass. There is no visualized left adnexal mass or complex lesion. There is normal arterial and normal venous vascularity. There is no fluid in the cul-de-sac. The pre void volume of the bladder was 280 ml. US/Pelvic w/ Transvaginal IMPRESSION: Normal female pelvis. Electronically Signed: Tyree Marte MD at 15:37 EST ,
== END | disposition home or self-care (01) ==
LOC: US 14:18
PROVIDERS: PCP Family Medicine; Referring Provider Nurse Practitioner Family; Visit Provider Nurse Practitioner Family
DX: R10.2 Pelvic and perineal pain (principal)
CPT/HCPCS: 76830; 76856

== ENCOUNTER → 2024-10-24 | Outpatient (CLI) | payer BC, SELFPAY ==
--- NOTE | 2024-10-24 | IMM_PTH ---
PATIENT: ALBINA AGUSTIN LOC: [facility] U#:[id number] AGE/SX: 39/F ROOM: RE10/24/[address]: Dr. Sherri Garcia DO : 1985 BED: DIS: 10/24/2024 SPEC #: [id number] RECD: 10/28/24 13:00 STATUS: DENISHA SO #: [id number] LINDSAY: 10/24/24 00:[address]: Sherri Garcia DEPT: IMMUNOHISTOCHEMISTRY RECD BY: Choco Lopez ENTERED: 10/28/24 13:01 SP TYPE: IMMUNO OTHR DR: Dr. Delta Pompa MD Tissues: B - Uterine cervix, NOS Procedures: p16 (initial) KI-67 (add) PHYSICIAN & INSTITUTION [place] [phone] SPECIMEN INFORMATION: [facility] Clinical Info: HPV+ Specimen Number: [id number] CPT code: 58528,71181 METHODOLOGY: Deparaffinized sections of prefer/formalin-fixed tissue or PAP/DQ stained slides are incubated with monoclonal/polyclonal antibodies/oligonucleotide probes. Localization is made via biotin free immunoperoxidase method. Appropriate controls are performed and reacted as expected. Results on target cell population are indicated in the following table: RESULTS: ANTIBODY / CLONE RESULT Block B P16 (E6H4) positive, focal, block-like Ki-67 (30-9) positive, moderate These tests were developed and their performance characteristics determined by [facility]. They may not have been cleared or approved by the U.S. Food and Drug Administration. The FDA has determined that such clearance or approval is not necessary. The above immunohistochemical/dualISH markers are ordered and reviewed by the Pathologist. INTERPRETATION: Jennifer Valera, 1o'clock, biopsy: Focal moderate dysplasia, RODRIGO II (HSIL). 10/29/2024
--- NOTE | 2024-10-24 11:45 | CER_PTH ---
PATIENT: ALBINA AGUSTIN [id number] AGE/SX: 39/F ROOM: RE10/24/[address]: Dr. Sherri Garcia DO : 1985 BED: DIS: 10/24/2024 SPEC #: [id number] RECD: 10/24/24 14:48 STATUS: DENISHA RIZZO #: [id number] LINDSAY: 10/24/24 11:[address]: Sherri Garcia DEPT: SURGICAL PATHOLOGY RECD BY: Ayleen Bolanos ENTERED: 10/25/24 07:50 SP TYPE: CERV OTHR DR: Dr. Delta Pompa MD Tissues: A - Endocervical B - Uterine cervix, NOS Procedures: Surgery Specimen Level IV HEADER OPERATION: Colposcopy PRE-OP DIAGNOSIS: HPV+ TISSUE SUBMITTED: A- ECC B- 1o'clock MICROSCOPIC DIAGNOSIS A. Endocervix, curettings (cellblock): Rare benign endocervical cells present. B. 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 Mild chronic inflammation. See comment. AM. 10/28/2024 COMMENT B. Immunohistochemistry ([id number]) for surrogate HPV marker (p16) supports the above diagnosis. MICROSCOPIC DESCRIPTION Slides are reviewed. GROSS DESCRIPTION A. Received in fixative is one container labeled with the patient's name and designated ECC. The specimen consists of multiple minute fragments of benitez tissue measuring in aggregate <0.1 x <0.1 x <0.1cm. The specimen is submitted in its entirety for cellblock preparation. B. Received in fixative is one container labeled with the patient's name and designated 1o'clock. The specimen consists of one irregular fragment of light benitez soft tissue that measures 0.5 x 0.3 x 0.1 cm. The specimen is totally submitted in one cassette. AM. 10/25/2024 TC:0 CPT:70156q4
== END | disposition home or self-care (01) ==
LOC: LABSPEC 13:39
PROVIDERS: PCP Family Medicine; Referring Provider Obstetrics & Gynecology; Visit Provider Obstetrics & Gynecology
DX: N87.1 Moderate cervical dysplasia (principal)
CPT/HCPCS: 88305; 88341; 88342

== ENCOUNTER → 2024-11-04 | Outpatient (CLI) | payer BC, SELFPAY ==
[2024-11-04 15:12] LABS: Hemoglobin 12.2 g/dL (12.0-15.0); Mean Corpuscular Volume 93.9 fL (81-99); Mean Platelet Vol. 10.8 fl (6.2-12.0); Platelet Count 279 K/mm3 (150-450); RBC Distribution Width CV 13.3 % (11.6-14.6); RBC Distribution Width SD 45.8 fl (35.1-43.9); Red Blood Count 3.94 M/mm3 (4.2-5.4); White Blood Count 4.7 K/mm3 (4.4-11.0)
== END | disposition home or self-care (01) ==
LOC: BWCLAB 13:16
PROVIDERS: PCP Family Medicine; Referring Provider Obstetrics & Gynecology; Visit Provider Obstetrics & Gynecology
DX: N87.1 Moderate cervical dysplasia (principal)
CPT/HCPCS: 36415; 85027; 86850; 86900; 86901

== ENCOUNTER 2024-11-19 13:36 | Day surgery (SDC) | payer BC, SELFPAY ==
[2024-11-19] VITALS (10 sets, daily range): BP systolic 97–116; BP diastolic 52–66; PULSE 76–80; RESP 14–18; TEMP 36.4–36.9; O2SAT 97–99; BMI 29.2
--- NOTE | 2024-11-19 | IMM_PTH ---
PATIENT: ALBINA AGUSTIN LOC: [facility] [place] U#:[id number] AGE/SX: 39/F ROOM: RE11/19/[address]: Dr. Sherri Garcia DO : 1985 BED: DIS: 11/19/2024 SPEC #: [id number] RECD: 11/22/24 11:32 STATUS: DENISHA SO #: [id number] LINDSAY: 11/19/24 00:[address]: Sherri Garcia DEPT: IMMUNOHISTOCHEMISTRY RECD BY: Choco Lopez ENTERED: 11/22/24 11:33 SP TYPE: IMMUNO OTHR DR: Dr. Delta Pompa MD Tissues: B - Uterine cervix, NOS Procedures: p16 (initial) KI-67 (add) PHYSICIAN & INSTITUTION [place] [id number] SPECIMEN INFORMATION: Tissue Source: B- Leebell aguilar Clinical Info: RODRIGO II (cervical intraepithelial neoplasia II) Specimen Number: [id number] CPT code: 77671,39631 METHODOLOGY: Deparaffinized sections of prefer/formalin-fixed tissue or PAP/DQ stained slides are incubated with monoclonal/polyclonal antibodies/oligonucleotide probes. Localization is made via biotin free immunoperoxidase method. Appropriate controls are performed and reacted as expected. Results on target cell population are indicated in the following table: RESULTS: ANTIBODY / CLONE RESULT Block B P16 (E6H4) positive, focal patchy staining Ki-67 (30-9) positive, low These tests were developed and their performance characteristics determined by [facility]. They may not have been cleared or approved by the U.S. Food and Drug Administration. The FDA has determined that such clearance or approval is not necessary. The above immunohistochemical/dualISH markers are ordered and reviewed by the Pathologist. INTERPRETATION: Jennifer Cervix, leep colonization: Focal mild squamous dysplasia. GLORY/ 11/25/2024
--- NOTE | 2024-11-19 14:46 | PCM.PRE.AN2 ---
ASA Classification* ASA Classification ASA Classification: 2 Assessment & Plan Anesthesia* Anesthesia Assessment Anesthesia Assessment: Discussed sedation and/or anesthesia options, risks, benefits, and alternatives with patient/parents/legal guardian/POA. Questions invited. The patient/parents/legal guardian/POA seems to understand and agrees to proceed with anesthesia plan. Reviewed the physical assessment, medical history, allergy history and patient home medications list prior to surgery/procedure/anesthetic and documented any changes. Performed airway and anesthesia risk assessments. Anesthesia Type Anesthesia Type: MAC History Source History Obtained from:: Patient and Chart Anesthesia Focused Assessment* Temperature: 97.6 F Pulse Rate: 76 Blood Pressure: 101/57 Respiratory Rate: 18 Pulse Ox: 98 Oxygen Delivery Method: Room Air Airway Assessment Mouth opens: >3 cm Mallampati Score: II Teeth Condition: Caps/Crowns (Patient has several crowns. They are all tight they are all tight.) Neck Range of motion (ROM): Full ROM Focused Labs Anesthesia Preop lab: CBC WBC 4.7 K/mm3 (4.4-11.0) 11/04/24 13:17 RBC 3.94 M/mm3 (4.2-5.4) L 11/04/24 13:17 Hgb 12.2 g/dL (12.0-15.0) 11/04/24 13:17 Hct 37.0 % (37-47) 11/04/24 13:17 Plt Count 279 K/mm3 (150-450) 11/04/24 13:17 CHEMISTRY Potassium 3.4 mmol/L (3.5-5.1) L 03/19/24 16:42 Sodium 136 mmol/L (136-145) 03/19/24 16:42 BUN 10 mg/dL (7-18) 03/19/24 16:42 Creatinine 0.69 mg/dL (0.55-1.02) 03/19/24 16:42 Glucose 105 mg/dL (74-106) 03/19/24 16:42 TSH 1.09 uIU/mL (0.358-3.74) 04/10/21 16:22 COAG Urine Test Negative Negative 07/18/24 09:30 Pre-Assessment Diagnosis/Proposed Procedure Planned Operative Procedure(s): Leep Cone Anesthesia History 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 When Was Last Pacemaker Check QUESTION #4 FULL TEXT: You/Your Family Experience fever (hyperthermia) with Anesthesia Last Oral Intake Last Oral intake: Last Oral Intake NPO since 00:00 11/19/24 13:52 Meds taken in AM with sips of No 11/19/24 13:52 water? 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 driver Female Yes 11/07/24 10:15 HX of Motion Sickness No 11/07/24 10:15 HX of N/V After Surgery No 11/07/24 10:15 Non-Smoker Yes 11/07/24 10:15 Duration of Surgery greater No 11/07/24 10:15 than 60 minutes Number of Risk Factors 2 11/07/24 10:15 PONV Score Moderate Risk 11/07/24 10:15 Height & Weight Height & Weight: Anesthesia: Height & Weight Height 5 ft 3 in 11/19/24 13:52 Weight: 75 kg 11/19/24 13:52 Body Mass Index (BMI) 29.2 11/19/24 13:52 Respiratory Assessment Respiratory Assessment - regional intermodal truck driver: Respiratory Tract Infection Hx - regional intermodal truck driver Hx Respiratory Tract Infection No 11/07/24 10:15 STOP Sleep Apnea STOP Sleep Apnea - regional intermodal truck driver: STOP Sleep Apnea - regional intermodal truck driver Hx Hypertension No 11/07/24 10:15 Hx Sleep Apnea No 11/07/24 10:15 CPAP BIPAP Do you snore loudly (louder No 11/07/24 10:15 than talking or can be heard Do you often feel tired/ No 11/07/24 10:15 fatigued/ sleepy during daytime? Has anyone observed you stop No 11/07/24 10:15 breathing during sleep? STOP Results Negative 11/07/24 10:15 QUESTION #5 FULL TEXT : Do you snore loudly (louder than talking or can be heard through closed doors)? 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 Specify any problems Hx of Preganancy in last 3 N/A 11/07/24 10:15 Months Nurse Filling Out Transfusion NBUCHER 11/07/24 10:15 & Questions: Date: 11/07/24 11/07/24 10:15 Time: 10:16 11/07/24 10:15 Patient unable to answer at this time (ie. 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: /Reproductive Hx- regional intermodal truck driver Hx Now No 11/07/24 10:15 Gestational Age (in weeks): EDC: Hx Hx Para Hx Section SAB No 11/07/24 10:15 [facility] Medical History RODRIGO II (cervical intraepithelial neoplasia II) High cholesterol Migraine headache Dietary restriction Gastric reflux History of echocardiogram Kidney stone Carpal tunnel syndrome Anxiety GERD (gastroesophageal reflux disease) Former smoker Hyperlipemia Home Medications ?Medication ?Instructions ?Recorded ?Last Taken ?Type escitalopram oxalate 10 mg tablet 20 mg PO DAILY 11/25/20 Unknown History aspirin 81 mg tablet,delayed 81 mg PO DAILY 02/27/24 11/18/24 History release pantoprazole 40 mg tablet,delayed 40 mg PO DAILY PRN GERD 02/27/24 Unknown History release (Protonix) clopidogrel 75 mg tablet (Plavix) 75 mg PO .daily #90 tabs 03/13/24 11/13/24 Rx hydrocodone-acetaminophen 5-325mg 1 - 2 tab PO DAILY PRN pain 11/07/24 Unknown History 5mg-325mg Allergy/AdvReac Type Severity Reaction Status Date / Time amoxicillin trihydrate (From AdvReac Diarrhea Verified 11/19/24 13:47 Augmentin) potassium clavulanate (From AdvReac Diarrhea Verified 11/19/24 13:47 Augmentin) Family History Other Myocardial infarction Sudden cardiac Surgical History History of cystoscopy History of 3 sections S/P laparoscopy S/P inguinal hernia repair History of esophagogastroduodenoscopy (EGD) Hx of wisdom tooth extraction History of bilateral carpal tunnel release Hx of tubal ligation History of Social History household members: spouse and children Smoking Status: Former smoker substance use type: does not use Review of Systems (Anesthesia) ROS Narrative System reviewed and no additional complaints, except as documented.
--- NOTE | 2024-11-19 15:15 | CONE_PTH ---
PATIENT: ALBINA AGUSTIN [place] [facility] [place][id number] AGE/SX: 39/F ROOM: RE11/19/[address]: Dr. Sherri Garcia DO : 1985 BED: DIS: 11/19/2024 SPEC #: [id number] RECD: 11/21/24 07:33 STATUS: DENISHA SO #: [id number] LINDSAY: 11/19/24 15:[address]: Sherri Garcia DEPT: SURGICAL PATHOLOGY RECD BY: Ayleen Bolanos ENTERED: 11/21/24 07:33 SP TYPE: Leep Cone KENIA DR: Dr. Delta Pompa MD Tissues: A - Endocervical B - UTERINE CERVIX LEEP Procedures: Surgery Specimen Level IV Surgery Specimen Level V HEADER OPERATION: Leep cone PRE-OP DIAGNOSIS: RODRIGO II (cervical intraepithelial neoplasia II) TISSUE SUBMITTED: A- JENS, B- Leep cone MICROSCOPIC DIAGNOSIS A. Endocervical curettings: Fragments of benign endocervical epithelium, endocervical mucosa and benign endometrial tissue and mucous. Negative for dysplasia. B. Cervix, leep colonization: Focal mild squamous dysplasia. Chronic inflammation and changes consistent with previous biopsy. See comment. 11/22/2024 COMMENT B. Immunohistochemistry ([id number]) for surrogate HPV marker (p16) supports the above diagnosis. Dysplastic changes are noted in the detached fragments of tissue in block 1. Resection margins cannot be assessed as specimen is received in two pieces. Clinical correlation and appropriate follow-up are necessary. Please make reference to previous specimen [id number] cervix, 1o'clock, biopsy with diagnosis of focal moderate dysplasia. MICROSCOPIC DESCRIPTION Slides are reviewed. GROSS DESCRIPTION A. Received in fixative is one container labeled with the patient's name and designated ECC. The specimen consists of multiple irregular fragments of benitez mucoid tissue that in aggregate measure 1.5 x 0.8 x 0.1 cm. The specimen is totally submitted in one cassette. B. Received in fixative is one container labeled with the patient's name and designated Leep cone. The specimen consists of two pieces of benitez indurated tissue measuring 1.0 x 0.8 x 0.6cm and 2.5 x 1.0 x 1.0cm. No mucosal lesion is identified. The mucosal surface is inked black. The entire specimen is submitted in four cassettes as follows: 1- smaller piece of tissue, 2-4- larger piece of tissue. SJ 11/21/2024 TC:5 CPT:16785,46922
--- NOTE | 2024-11-19 15:29 | PCM.HP.BLA ---
History and Physical Date of Admission: 11/19/24 Intake Vital Signs 10/24/2411:41 11/04/2412:59 Height 5 ft 3 in Weight: 168 lb BMI 29.7 BP 118/81 H Blood Pressure Location Lt brachial Position Sitting Respiration 18 Pulse 80 Pulse Source Monitor Pulse Oximetry (%) 96 Oxygen Delivery Method room air Intake Visit Reasons: LEEP Allergies amoxicillin trihydrate (From Augmentin) Adverse Reaction (Verified 11/04/24 13:03) Diarrheapotassium clavulanate (From Augmentin) Adverse Reaction (Verified 11/04/24 13:03) Diarrhea Medications ?Medication ?Instructions ?Recorded ?Confirmed ?Type escitalopram oxalate 10 mg tablet 20 mg PO DAILY 11/25/20 11/04/24 History aspirin 81 mg tablet,delayed 81 mg PO DAILY 02/27/24 11/04/24 History release pantoprazole 40 mg tablet,delayed 40 mg PO DAILY 02/27/24 11/04/24 History release (Protonix) clopidogrel 75 mg tablet (Plavix) 75 mg PO .daily #90 tabs 03/13/24 11/04/24 Rx PFSH Medical History RODRIGO II (cervical intraepithelial neoplasia II) High cholesterol Migraine headache Dietary restriction Gastric reflux History of echocardiogram Kidney stone Carpal tunnel syndrome Anxiety GERD (gastroesophageal reflux disease) Former smoker Hyperlipemia Surgical History History of 3 sections S/P laparoscopy S/P inguinal hernia repair History of esophagogastroduodenoscopy (EGD) Hx of wisdom tooth extraction History of bilateral carpal tunnel release Hx of tubal ligation History of Family History Other Myocardial infarction Sudden cardiac Social History household members: spouse and children Smoking Status: Former smoker substance use type: does not use HPI LEEP Details: ALBINA AGUSTIN is a 39 year old who presents for a preop evaluation. She was recently diagnosed with RODRIGO II and is scheduled for a LEEP procedure. She ultimately would like a hysterectomy for treatment of pelvic congestion syndrome. She understands that this procedure must occur first. History 3 Elective abortions Hx Para 3 Spontaneous abortions Hx # Term Pregnancies Ectopic pregnancies Hx # Pregnancies Multiple births # of living children ROS Const ROS Unobtainable: All systems reviewed & are unremarkable except as noted in H Resp Resp: Reports system reviewed and no additional complaints, except as documented; Denies cough GI GI: Reports as per HPI Psych Psych: Reports system reviewed and no additional complaints, except as documented Exam Const General: cooperative, healthy appearing, comfortable and no acute distress Resp Effort & Inspection: normal respiratory effort Skin General: no rashes or lesions noted Psych Appearance: grossly normal Speech and Movement: speech and movement normal Coding Level of Care Code Off vis,est,level 4 Diagnoses RODRIGO II (cervical intraepithelial neoplasia II) N87.1 Assessment and Plan Assessment and Plan (1) RODRIGO II (cervical intraepithelial neoplasia II): Status: Acute Plan: After discussing the patient's diagnosis and treatment plan options, patient wishes to proceed with surgical management. I have discussed with the patient the risks, benefits, and alternatives of the procedure which include but are not limited to risks of anesthesia, bleeding, infection, possible damage to bowel, bladder, or surrounding vasculature which could lead to additional surgery to evaluate any complications. Patient agrees to procedure and wishes to proceed. ACOG/uptodate references given for additional information regarding procedure. plan for leep procedure 11/19/24 and return to office to discuss hysterectomy at a later date pending the results. Orders: Orders CBC-Complete Blood Cnt No Diff Today N87.1 - Moderate cervical dysplasia Type & Screen Today N87.1 - Moderate cervical dysplasia
--- NOTE | 2024-11-19 16:09 | DCINST_ITS ---
Discharge Instructions Diet Discharge Diet: No restrictions DC O2, CPAP, BIPAP needs Home O2 Discharge instructions: No Dressing / Incision Discharge Activity: Return to Normal Activity and [place] Drive (while taking narcotic pain mediations.) May resume sexual activity in: 4 weeks (Nothing in the vagina for 4 weeks.) Dressing / Incision Call your doctor if you observe: Fever of 101 or Higher and Using more than 1 pad per hour Follow Up Care Please Follow Up With: Sherri Garcia DO When: Call [phone] for follow-up appointment. Test Results: Test results from this visit will be discussed in further detail at your follow- up appointment, if applicable. Discharge Plan Admission Primary Reason for Your Visit: DENNISE Attending Provider: Sherri Garcia Primary Care Provider: Delta Pompa Instructions Print Language: Greenlandic Discharge Orders/Prescriptions Prescriptions: Continued clopidogrel [Plavix] 75 mg tablet 75 mg PO .daily Qty: 90 3RF pantoprazole [Protonix] 40 mg tablet,delayed release (DR/EC) 40 mg PO DAILY PRN (Reason: GERD) aspirin 81 mg tablet,delayed release (DR/EC) 81 mg PO DAILY escitalopram oxalate 10 MG tablet 20 mg PO DAILY hydrocodone-acetaminophen 5-325 mg tablet 1 - 2 tab PO DAILY PRN (Reason: pain) Referrals / Follow Up: Delta Pompa MD [Primary Care Provider] - Disposition Disposition (needs filled in before D/C Order can be placed): Home, Self Care
[2024-11-19] MEDS: Iodine/Potassium Iodide 14ML Bottle 1 DRP TOPICAL (16:48)
[2024-11-19] MEDS: FERRIC SUBSULFATE 8 GM SOLN (16:48)
[2024-11-19] MEDS: Lidocaine 1%/Epi 1:200 (30ml) 30 ML AMPUL (16:48)
--- NOTE | 2024-11-19 17:04 | PCM.OPRPT ---
Problems Associated Problem List Diagnoses (1) RODRIGO II (cervical intraepithelial neoplasia II): Multi Select Codes Urinary/Genital Urinary/Genital CPT Codes: 79145 LEEP Operative Report (Standard) Operative Information Date of Procedure: 11/19/24 Pre-Operative Diagnosis: high grade cervical dysplasia Post-Operative Diagnosis: High-grade cervical dysplasia Surgery/Procedure Performed: Loop electrocautery excisional procedure razor sharpener: No Type of Anesthesia: General RN Documented Start/Stop Times: Operation Date: 11/19/24 15:15 Case Time Into Pre-Op 11/19/24 13:41 Out of Pre-Op 11/19/24 16:17 Anesthesia Start 11/19/24 16:21 Into Room 11/19/24 16:21 Procedure Start 11/19/24 16:41 Procedure End 11/19/24 16:52 Anesthesia End 11/19/24 16:57 Out of Room 11/19/24 16:57 Into Recovery 11/19/24 16:58 Procedure Start Time: 16:21 Procedure Stop Time: 16:52 Select all DRAINS/GRAFTS/IMPLANTS that apply: None Estimated Blood Loss: 5 cc Specimen collected: Yes Description of specimen(s) removed: Cervical loop electrocautery excisional specimen and endocervical curettage Description of surgery: Patient was taken to the operating room and placed under MAC anesthesia prepped and draped in normal sterile fashion the dorsal lithotomy position. Paracervical block was placed with 1% lidocaine and using a loop electrode the outer part of the cervix was removed including the squamocolumnar junction. Endocervical curettings were taken and the base of the cervix was cauterized around the borders and the base to obtain excellent hemostasis. Monsel's paste was placed and patient was awoken and taken recovery in stable condition. Surgical Findings: Normal-appearing cervix Complications Complications: No Admit VTE Documentation VTE Present on Admission: Yes VTE Mechan Device Prophylaxis: SCD's VTE Pharm Prophylaxis ordered?: No
[2024-11-19] MEDS: Ibuprofen 600 MG Tablet PO (17:42)
[2024-11-19] MEDS: HYDROcodone Bitartrate/Apap 5/325 Tablet PO (18:07)
--- NOTE | 2024-11-19 18:17 | PCM.POST.ANE ---
Anesthesia: Postop Eval I Current Vital Signs Temperature: 98.5 F Pulse Rate: 80 Blood Pressure: 116/59 Respiratory Rate: 16 Pulse Ox: 97 Oxygen Delivery Method: Room Air Assessment Airway patent: Yes Spontaneous unlabored respirations: Yes Mental status: Awake and Calm nausea: No Vomiting: No Anesthesia Complication: No Fluid Hydration Crystalloid volume administer (ml): 30 Total IV fluid infused: 30 Progress Note Anesthesia document: Postop Eval 1 completed: Yes
--- NOTE | 2024-11-19 20:05 | POSTOPAN2_ITS ---
Anesthesia Postop Eval I Sum Postop Eval Completion status Anesthesia document: Postop Eval 1 completed: Yes Anesthesia Postop Eval I Summary Anesthesia Postop Eval I Summary: Anesthesia Postop Eval I: Assessment Summary Airway patent Yes 11/19/24 18:18 SKATING CARHOP.[email or web address] Spontaneous unlabored Yes 11/19/24 18:18 SKATING CARHOP.SHELLEYLOU respirations Mental status Awake,Calm 11/19/24 18:18 SKATING CARHOP.SHELLEYLOU nausea No 11/19/24 18:18 SKATING CARHOP.SHELLEYLOU Vomiting No 11/19/24 18:18 SKATING CARHOP.JBLOU Anesthesia Postop Eval I: Fluid Summary Crystalloid volume administer 30 11/19/24 18:18 SKATING CARHOP.SHELLEYLOU (ml) Colloids volume administered ( ml) Blood Product volume administered (ml) Total IV fluid infused 30 11/19/24 18:18 SKATING CARHOP.SHELLEYLOU Anesthesia Postop Eval I: Summary Notes Anesthesia Complication No 11/19/24 18:18 SKATING CARHOP.FANI Anesthesia Complication Comment: Post-operative progress note Anesthesia: Postop Eval II Evaluation Mental status: Awake Pain Level: 0 nausea: No Vomiting: No
--- NOTE | 2024-11-19 20:05 | PCM.POSTANE2 ---
Anesthesia Postop Eval I Sum Postop Eval Completion status Anesthesia document: Postop Eval 1 completed: Yes Anesthesia Postop Eval I Summary Anesthesia Postop Eval I Summary: Anesthesia Postop Eval I: Assessment Summary Airway patent Yes 11/19/24 18:18 FIRST OFFICER AND FLIGHT INSTRUCTOR.[email or web address] Spontaneous unlabored Yes 11/19/24 18:18 FIRST OFFICER AND FLIGHT INSTRUCTOR.SHELLEYLOU respirations Mental status Awake,Calm 11/19/24 18:18 FIRST OFFICER AND FLIGHT INSTRUCTOR.SHELLEYLOU nausea No 11/19/24 18:18 FIRST OFFICER AND FLIGHT INSTRUCTOR.SHELLEYLOU Vomiting No 11/19/24 18:18 FIRST OFFICER AND FLIGHT INSTRUCTOR.JBLOU Anesthesia Postop Eval I: Fluid Summary Crystalloid volume administer 30 11/19/24 18:18 FIRST OFFICER AND FLIGHT INSTRUCTOR.SHELLEYLOU (ml) Colloids volume administered ( ml) Blood Product volume administered (ml) Total IV fluid infused 30 11/19/24 18:18 FIRST OFFICER AND FLIGHT INSTRUCTOR.SHELLEYLOU Anesthesia Postop Eval I: Summary Notes Anesthesia Complication No 11/19/24 18:18 FIRST OFFICER AND FLIGHT INSTRUCTOR.FANI Anesthesia Complication Comment: Post-operative progress note Anesthesia: Postop Eval II Evaluation Mental status: Awake Pain Level: 0 nausea: No Vomiting: No
== END 2024-11-19 18:34 | disposition home or self-care (01) ==
LOC: SDC 13:36 → AC 13:37
PROVIDERS: PCP Family Medicine; Referring Provider Obstetrics & Gynecology; Visit Provider Obstetrics & Gynecology
PROC: 0UBC7ZZ Excision of Cervix, Via Natural or Artificial Opening (ICD-10-PCS; CPT 57522; principal; 2024-11-19 15:00)
DX: N87.1 Moderate cervical dysplasia (principal); K21.9 Gastro-esophageal reflux disease without esophagitis; F41.9 Anxiety disorder, unspecified; Z79.82 Long term (current) use of aspirin; Z79.01 Long term (current) use of anticoagulants; Z79.899 Other long term (current) drug therapy; Z87.891 Personal history of nicotine dependence
CPT/HCPCS: 57522; 00940; 86850; 86900; 86901; 88305; 88307; 88341; 88342; A4216; J2405

== ENCOUNTER 2024-11-28 17:28 | Day surgery (SDC) | payer BC, SELFPAY ==
[2024-11-28] VITALS (13 sets, daily range): BP systolic 93–158; BP diastolic 54–80; PULSE 81–113; RESP 16–19; TEMP 36.5–36.9; O2SAT 93–100; BMI 30.2
--- NOTE | 2024-11-28 17:37 | ED.VIS.FEGU ---
HPI <MARQUIS Laurent - Last Filed: 11/28/24 18:40> HPI - Female History of Present Illness Chief Complaint: Vag Bleeding Narrative Narrative: 39-year-old female presents with heavy vaginal bleeding. She had a LEEP procedure for high-grade cervical dysplasia by Dr. Sherri Lanier on 11/19/2024. She tolerated the procedure well without complications. Yesterday she had light spotting. This morning she had bleeding which seemed like her menstrual cycle starting although it was a week early. When she got out of the shower around 5 PM she had very heavy bleeding and clots. She states the blood went all over the floor. She is on aspirin and Plavix due to history of iliac stents for pelvic congestion syndrome. PFS <MARQUIS Laurent - Last Filed: 11/28/24 18:40> COUNT INCLUDES THE [facility] Medical History (Updated 11/28/24 @ 19:[address] Adalberto Healy MD) RODRIGO II (cervical intraepithelial neoplasia II) High cholesterol Migraine headache Dietary restriction Gastric reflux History of echocardiogram Kidney stone Carpal tunnel syndrome Anxiety GERD (gastroesophageal reflux disease) Former smoker Hyperlipemia Home Medications ?Medication ?Instructions ?Recorded ?Last Taken ?Type escitalopram oxalate 10 mg tablet 20 mg PO DAILY 11/25/20 Unknown History aspirin 81 mg tablet,delayed 81 mg PO DAILY 02/27/24 11/18/24 History release pantoprazole 40 mg tablet,delayed 40 mg PO DAILY PRN GERD 02/27/24 Unknown History release (Protonix) clopidogrel 75 mg tablet (Plavix) 75 mg PO .daily #90 tabs 03/13/24 11/13/24 Rx hydrocodone-acetaminophen 5-325mg 1 - 2 tab PO DAILY PRN pain 11/07/24 Unknown History 5mg-325mg sumatriptan succinate 50 mg tablet 50 mg PO Q2H 11/28/24 Unknown History Allergy/AdvReac Type Severity Reaction Status Date / Time amoxicillin trihydrate (From AdvReac Diarrhea Verified 11/28/24 17:31 Augmentin) potassium clavulanate (From AdvReac Diarrhea Verified 11/28/24 17:31 Augmentin) Family History Other Myocardial infarction Sudden cardiac Surgical History (Updated 11/28/24 @ 18:40 by MARQUIS Laurent) S/P LEEP History of cystoscopy History of 3 sections S/P laparoscopy S/P inguinal hernia repair History of esophagogastroduodenoscopy (EGD) Hx of wisdom tooth extraction History of bilateral carpal tunnel release Hx of tubal ligation History of Social History household members: spouse and children Smoking Status: Former smoker substance use type: does not use ROS <MARQUIS Laurent - Last Filed: 11/28/24 18:40> ROS ED ROS Narrative Constitutional: Negative for fever, chills, malaise. CVS: Negative for chest pain. Respiratory: Negative for shortness of breath. GI: Negative for abdominal pain, nausea, vomiting. : Negative for dysuria. EXAM <MARQUIS Laurent - Last Filed: 11/28/24 18:40> Physical Exam Narrative Exam Narrative: CONST: Patient sitting in no acute distress. EYES: Normal inspection. NECK: Normal inspection. RESP: No respiratory distress, CTAB. CVS: Regular rate and rhythm, no murmur, no gallop. ABD: Soft and nontender, no guarding or rebound, nondistended, : Normal external genitalia. Several large blood clots were removed and then the vaginal vault refills with bright red blood. The source of bleeding appears to be from the cervix where the LEEP procedure was done. SKIN: Color normal, no rash, warm, dry, intact. EXTREMITIES: Normal appearance, no pedal edema. NEURO: Alert and answering questions appropriately. PSYCH: Normal affect. Const Vital Signs: 11/28/24 17:28 Temperature 98.4 F Temperature Source Oral Pulse Rate 113 H Respiratory Rate 16 Blood Pressure 158/76 H Blood Pressure Mean 103 Pulse Ox 98 Oxygen Delivery Method Room Air <Dr. Adalberto Healy MD - Last Filed: 11/28/24 19:04> Physical Exam Const Vital Signs: 11/28/24 17:28 Temperature 98.4 F Temperature Source Oral Pulse Rate 113 H Respiratory Rate 16 Blood Pressure 158/76 H Blood Pressure Mean 103 Pulse Ox 98 Oxygen Delivery Method Room Air MDM <MARQUIS Laurent - Last Filed: 11/28/24 18:40> MDM MDM Narrative Medical decision making narrative: 39-year-old female has delayed onset vaginal hemorrhage after a LEEP procedure 10 days ago. She is on aspirin and Plavix for history of pelvic congestion syndrome and stents. She appears well and nontoxic. She was tachycardic at 113, otherwise normal vital signs. Abdomen soft and nontender. On pelvic exam she had large clots and bright red active bleeding which appears to be coming from the cervical procedure site. ENDOSCOPY NURSE was consulted and Dr. Lanier packed the vaginal vault with Kerlix soaked in Monsel solution. Her hemoglobin is dropped about half a gram from previous with only 1 to [address] of bleeding so Dr[address] Lanier to take her to the OR for suture placement. I have personally performed a face to face assessment of the patient and have reviewed the YARELI Note. I performed a substantive portion of the visit including all aspects of the following. My adan findings include: History is remarkable for LEEP procedure New s [place]. Patient reported spotting yesterday. She reported heavy bleeding starting this evening at 5 PM. She is on no anticoagulant. She is on aspirin and antithrombotic because of history of gastric congestion with stents placed in the celiac artery by Dr. Cabrera. She denies orthostatic symptoms. Exam is patient's vitals are marked for heart rate of 113. She does appear slightly pale. Pelvic exam reveals large clot at the introitus. There was large clots in the vaginal vault. These were removed. There is active bleeding noted from the cervix. Patient had a LEEP procedure done and residual noted. Medical Decision Making patient with postop bleeding. Monsel solution was ordered. Dr. Lanier presented to the emergency department. She states she would treat the patient with Monsel solution and pack her if needed. She was made aware that there is 1/2 g drop in her hemoglobin. Electrolyte panel is unremarkable. Serum was negative. Other additions or changes: [None] Lab Data Labs: Laboratory Results - last 24 hr 11/28/24 17:45 WBC 6.7 RBC 3.70 L Hgb 11.6 L Hct 33.8 L MCV 91.4 MCH 31.4 MCHC 34.3 RDW Std Deviation 43.8 RDW Coeff of Autumn 13.2 Plt Count 302 MPV 10.4 Immature Gran % (Auto) 0.300 Neut % (Auto) 62.6 Lymph % (Auto) 25.4 Barber % (Auto) 9.8 Eos % (Auto) 1.3 Baso % (Auto) 0.6 Absolute Neuts (auto) 4.2 Absolute Lymphs (auto) 1.71 Nucleated RBC % 0 Sodium 137 Potassium 3.3 L Chloride 104 Carbon Dioxide 26.0 Anion Gap 7 BUN 9 Creatinine 0.74 Estim Creat Clear Calc 100.48 Est GFR (MDRD) Af Amer 113 Est GFR (MDRD) Non-Af 93 BUN/Creatinine Ratio 12.2 Glucose 129 H Calcium 8.7 Serum , Qual NEGATIVE <Dr. Adalberto Healy MD - Last Filed: 11/28/24 19:04> MDM MDM Narrative Medical decision making narrative: 39-year-old female has delayed onset vaginal hemorrhage after a LEEP procedure 10 days ago. She is on aspirin and Plavix for history of pelvic congestion syndrome and stents. She appears well and nontoxic. She was tachycardic at 113, otherwise normal vital signs. Abdomen soft and nontender. On pelvic exam she had large clots and bright red active bleeding which appears to be coming from the cervical procedure site. ENDOSCOPY NURSE was consulted and Dr. Lanier packed the vaginal vault with Kerlix soaked in Monsel solution. Her hemoglobin is dropped about half a gram from previous with only 1 to [address] bleeding so Dr[address] Lanier to take her to the OR for suture placement. I have personally performed a face to face assessment of the patient and have reviewed the YARELI Note. I performed a substantive portion of the visit including all aspects of the following. My adan findings include: History is remarkable for LEEP procedure New Year's Marixa. Patient reported spotting yesterday. She reported heavy bleeding starting this evening at 5 PM. She is on no anticoagulant. She is on aspirin and antithrombotic because of history of gastric congestion with stents placed in the celiac artery by Dr. Cabrera. She denies orthostatic symptoms. Exam is patient's vitals are marked for heart rate of 113. She does appear slightly pale. Pelvic exam reveals large clot at the introitus. There was large clots in the vaginal vault. These were removed. There is active bleeding noted from the cervix. Patient had a LEEP procedure done and residual noted. Medical Decision Making patient with postop bleeding. Monsel solution was ordered. Dr. Lanier presented to the emergency department. She states she would treat the patient with Monsel solution and pack her if needed. She was made aware that there is 1/2 g drop in her hemoglobin. Electrolyte panel is unremarkable. Serum was negative. Other additions or changes: Patient continued to bleed in spite of treatment with Monsel solution. Plan is to the OR. Patient is pale. Suspect that she has lost more blood than she realizes. Lab Data Attestation: I reviewed the patient's lab results. Lab results narrative: CBC reveals mild anemia with normal indices. Serum test negative. BMP reveals mild hypokalemia. Labs: Laboratory Results - last 24 hr 11/28/24 17:45 WBC 6.7 RBC 3.70 L Hgb 11.6 L Hct 33.8 L MCV 91.4 MCH 31.4 MCHC 34.3 RDW Std Deviation 43.8 RDW Coeff of Autumn 13.2 Plt Count 302 MPV 10.4 Immature Gran % (Auto) 0.300 Neut % (Auto) 62.6 Lymph % (Auto) 25.4 Barber % (Auto) 9.8 Eos % (Auto) 1.3 Baso % (Auto) 0.6 Absolute Neuts (auto) 4.2 Absolute Lymphs (auto) 1.71 Nucleated RBC % 0 Sodium 137 Potassium 3.3 L Chloride 104 Carbon Dioxide 26.0 Anion Gap 7 BUN 9 Creatinine 0.74 Estim Creat Clear Calc 100.48 Est GFR (MDRD) Af Amer 113 Est GFR (MDRD) Non-Af 93 BUN/Creatinine Ratio 12.2 Glucose 129 H Calcium 8.7 Serum , Qual NEGATIVE Rhythm Strip Rhythm Strip: Sinus Tach Rate: 110 Ectopy: None Management Discussion w/another healthcare provider: Plant Ecologist (Spoke with Dr. Lanier and she saw patient. 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
[2024-11-28 18:04] LABS: Absolute Lymphocyte Count 1.71 X10^3/uL (0.83-4.51); Absolute Neutrophil Count 4.2 X10^3/uL (2.0-7.7); Basophil# 0.04 X10^3/uL; Basophil% 0.6 % (0-1); Eosinophil# 0.09 X10^3/uL; Eosinophils% 1.3 % (0-5); Hematocrit 33.8 % (37-47); Hemoglobin 11.6 g/dL (12.0-15.0); Lymphocyte # 1.71 X10^3/ul (0.83-4.51); Lymphocyte % 25.4 % (19-41); Mean Corp Hgb Conc 34.3 g/dL (32-36); Mean Corpuscular Hgb 31.4 pg (27.0-32.0); Mean Corpuscular Volume 91.4 fL (81-99); Mean Platelet Vol. 10.4 fl (6.2-12.0); Monocyte# 0.66 X10^3/uL; Monocyte% 9.8 % (0-10); NRBC Flagged by Analyzer 0 % (0-5); Neutrophil # 4.22 X10^3/uL (2.7-7.7); Neutrophil % 62.6 % (47-70); Platelet Count 302 K/mm3 (150-450); RBC Distribution Width CV 13.2 % (11.6-14.6); RBC Distribution Width SD 43.8 fl (35.1-43.9); White Blood Count 6.7 K/mm3 (4.4-11.0)
[2024-11-28 18:14] LABS: Anion Gap 7 (5-15); BUN 9 mg/dL (7-18); BUN/Creat Ratio 12.2 RATIO (10-20); Calcium,Total 8.7 mg/dL (8.5-10.1); Chloride 104 mmol/L (98-107); Creatinine, Serum 0.74 mg/dL (0.55-1.02); EST Glomerular Filtration Rate 93 mL/min (>60); Est Glom Filt Rate - Afr Amer 113 mL/min (>60); Estimated Creatinine Clearance 100.48 ml/min; Glucose 129 mg/dL (74-106); Potassium 3.3 mmol/L (3.5-5.1); Sodium Level 137 mmol/L (136-145)
[2024-11-28 18:16] LABS: Internal QC Validated? YES +Cl - CLEAR BKGD; Pregnancy, Serum, hCG Quali. NEGATIVE Negative
[2024-11-28] MEDS: Morphine 4 MG/ML Syringe IV (18:31)
[2024-11-28] MEDS: Ondansetron 4 MG/2 ML Vial IV (18:31)
[2024-11-28] MEDS: FERRIC SUBSULFATE 8 GM SOLN TOPICAL (18:32)
--- NOTE | 2024-11-28 18:56 | HP.PCM.OB_ITS ---
HPI - General General Date of Admission: 11/28/24 HPI Narrative ALBINA AGUSTIN, is a 39 y/o who presents to [facility] ER with profuse vaginal bleeding status post LEEP procedure last monday. She states that light bleeding started last night and became heavy enough that pads were not soaking up the blood. When she arrived to the ER she was found to have a copious amounts of clots in the vagina by the ER physician. Her hg initially was found to be a half a gram lower than prior to her surgery. Upon my arrival and re-examination it was evident that suture and cautery was needed when silver nitrite was and 2 jars of Monsel's soln was not creating hemostasis. [facility] Medical History (Updated 11/28/24 @ 19:[address] Sherri Garcia DO) RODRIGO II (cervical intraepithelial neoplasia II) High cholesterol Migraine headache Dietary restriction Gastric reflux History of echocardiogram Kidney stone Carpal tunnel syndrome Anxiety GERD (gastroesophageal reflux disease) Former smoker Hyperlipemia Home Medications ?Medication ?Instructions ?Recorded ?Last Taken ?Type escitalopram oxalate 10 mg tablet 20 mg PO DAILY 11/25/20 Unknown History aspirin 81 mg tablet,delayed 81 mg PO DAILY 02/27/24 11/18/24 History release pantoprazole 40 mg tablet,delayed 40 mg PO DAILY PRN GERD 02/27/24 Unknown History release (Protonix) clopidogrel 75 mg tablet (Plavix) 75 mg PO .daily #90 tabs 03/13/24 11/13/24 Rx hydrocodone-acetaminophen 5-325mg 1 - 2 tab PO DAILY PRN pain 11/07/24 Unknown History 5mg-325mg sumatriptan succinate 50 mg tablet 50 mg PO Q2H 11/28/24 Unknown History Allergy/AdvReac Type Severity Reaction Status Date / Time amoxicillin trihydrate (From AdvReac Diarrhea Verified 11/28/24 17:31 Augmentin) potassium clavulanate (From AdvReac Diarrhea Verified 11/28/24 17:31 Augmentin) Family History Other Myocardial infarction Sudden cardiac Surgical History (Updated 11/28/24 @ 18:40 by MARQUIS Laurent) S/P LEEP History of cystoscopy History of 3 sections S/P laparoscopy S/P inguinal hernia repair History of esophagogastroduodenoscopy (EGD) Hx of wisdom tooth extraction History of bilateral carpal tunnel release Hx of tubal ligation History of Social History household members: spouse and children Smoking Status: Former smoker substance use type: does not use History 3 Elective abortions Hx Para 3 Spontaneous abortions Hx # Term Pregnancies Ectopic pregnancies Hx # Pregnancies Multiple births # of living children ROS Constitutional Constitutional: Denies fever(s) or lethargy Cardiovascular Cardiovascular: Reports diaphoresis and dizziness; Denies abdominal pain, chest pain, chest pain at rest or dyspnea Respiratory/Chest Respiratory/Chest: Denies chest tightness Gastrointestinal Gastrointestinal: Reports nausea; Denies abdominal pain or vomiting Musculoskeletal Musculoskeletal: Reports none Neurologic Neurologic: Reports none Psychiatric Psychiatric: Reports none Endocrine Endocrinology: Reports none Hematologic/Lymphatic Hematologic/Lymphatic: Reports easy bleeding and other Details: on plavix and asa Vital Signs Vital Signs Vital Signs: 11/28/24 17:28 Temperature 98.4 F Temperature Source Oral Pulse Rate 113 H Respiratory Rate 16 Blood Pressure 158/76 H Blood Pressure Mean 103 Pulse Ox 98 Oxygen Delivery Method Room Air Weight Weight: 170 lb 6.4 oz Body Mass Index (BMI) 30.2 Physical Exam Const alert, oriented x3 and no apparent distress General Appearance: cooperative and lethargic HEENT normocephalic Eyes PERRL Chest Chest: symmetrical chest wall rise Resp normal air movement Effort and Inspection: able to speak in complete sentences Cardio regular rate and regular rhythm GI soft to palpation Rectal Exam: deferred Speculum Exam - Cervix: cervical os open and other bleeding from edges of the cervix. no improvement with SN and monsel's soln as noted above. Labs Labs Labs: Blood Type A NEGATIVE Antibody Screen NEGATIVE Hct 33.8 % (37-47) L Hgb 11.6 g/dL (12.0-15.0) L Glucose 1 Hr 50 gm 104 mg/dL (70-140) Assessment & Plan (1) Vaginal bleeding: PLAN: heavy vaginal bleeding from the cervix secondary to LEEP procedure. Suspect this also is due to her re-initiating plavix and baby asa. After discussing the patient's diagnosis and treatment plan options, patient wishes to proceed with surgical management. I have discussed with the patient the risks, benefits, and alternatives of the procedure which include but are not limited to risks of anesthesia, bleeding, infection, possible damage to bowel, bladder, or surrounding vasculature which could lead to additional surgery to evaluate any complications. Patient agrees to procedure and wishes to proceed. plan to bring to OR for better visualization, cautery, and suture placement
[2024-11-28] MEDS: HYDROmorphone 0.5 MG/0.5 ML SYRINGE IV (18:59)
--- NOTE | 2024-11-28 19:30 | PRE.ANES_ITS ---
ASA Classification* ASA Classification ASA Classification: 2 and E Assessment & Plan Anesthesia* Anesthesia Assessment Anesthesia Assessment: Discussed sedation and/or anesthesia options, risks, benefits, and alternatives with patient/parents/legal guardian/POA. Questions invited. The patient/parents/legal guardian/POA seems to understand and agrees to proceed with anesthesia plan. Reviewed the physical assessment, medical history, allergy history and patient home medications list prior to surgery/procedure/anesthetic and documented any changes. Performed airway and anesthesia risk assessments. Anesthesia Type Anesthesia Type: MAC (GA ET bkup. patient on Plavix. Food at 1630) Anesthesia Focused Assessment* Temperature: 98.2 F Pulse Rate: 90 Blood Pressure: 132/80 Respiratory Rate: 17 Pulse Ox: 100 Airway Assessment Mouth opens: >3 cm Mallampati Score: II Focused Labs Anesthesia Preop lab: CBC WBC 6.7 K/mm3 (4.4-11.0) 11/28/24 17:45 RBC 3.70 M/mm3 (4.2-5.4) L 11/28/24 17:45 Hgb 11.6 g/dL (12.0-15.0) L 11/28/24 17:45 Hct 33.8 % (37-47) L 11/28/24 17:45 Plt Count 302 K/mm3 (150-450) 11/28/24 17:45 CHEMISTRY Potassium 3.3 mmol/L (3.5-5.1) L 11/28/24 17:45 Sodium 137 mmol/L (136-145) 11/28/24 17:45 BUN 9 mg/dL (7-18) 11/28/24 17:45 Creatinine 0.74 mg/dL (0.55-1.02) 11/28/24 17:45 Glucose 129 mg/dL (74-106) H 11/28/24 17:45 TSH 1.09 uIU/mL (0.358-3.74) 04/10/21 16:22 COAG Urine Test Negative Negative 07/18/24 09:30 Pre-Assessment Diagnosis/Proposed Procedure Planned Operative Procedure(s): repair cervical bleeding Anesthesia History 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 When Was Last Pacemaker Check QUESTION #4 FULL TEXT: You/Your Family Experience fever (hyperthermia) with Anesthesia Last Oral Intake Last Oral intake: Last Oral Intake NPO since 16:30 11/28/24 19:12 Meds taken in AM with sips of water? 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 Female HX of Motion Sickness HX of N/V After Surgery Non-Smoker Duration of Surgery greater than 60 minutes Number of Risk Factors PONV Score Height & Weight Height & Weight: Anesthesia: Height & Weight Height 5 ft 3 in 11/28/24 19:12 Weight: 77.292 kg 11/28/24 19:12 Body Mass Index (BMI) 30.2 11/28/24 19:12 Respiratory Assessment Respiratory Assessment - oil rig roughneck: Respiratory Tract Infection Hx - oil rig roughneck Hx Respiratory Tract Infection No 11/28/24 19:12 STOP Sleep Apnea STOP Sleep Apnea - oil rig roughneck: STOP Sleep Apnea - oil rig roughneck Hx Hypertension No 11/28/24 19:12 Hx Sleep Apnea No 11/28/24 19:12 CPAP BIPAP Do you snore loudly (louder No 11/28/24 19:12 than talking or can be heard Do you often feel tired/ No 11/28/24 19:12 fatigued/ sleepy during daytime? Has anyone observed you stop No 11/28/24 19:12 breathing during sleep? STOP Results Negative 11/28/24 19:12 QUESTION #5 FULL TEXT : Do you snore loudly (louder than talking or can be heard through closed doors)? 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 Specify any problems Hx of Preganancy in last 3 Months Nurse Filling Out Transfusion & Questions: Date: Time: Patient unable to answer at this time (ie. 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: /Reproductive Hx- oil rig roughneck Hx Now No 11/28/24 19:12 Gestational Age (in weeks): EDC: Hx 3 11/28/24 17:48 Hx Para Hx Section SAB No 11/28/24 17:28 PFSH Medical History RODRIGO II (cervical intraepithelial neoplasia II) High cholesterol Migraine headache Dietary restriction Gastric reflux History of echocardiogram Kidney stone Carpal tunnel syndrome Anxiety GERD (gastroesophageal reflux disease) Former smoker Hyperlipemia Home Medications ?Medication ?Instructions ?Recorded ?Last Taken ?Type escitalopram oxalate 10 mg tablet 20 mg PO DAILY 11/25/20 Unknown History aspirin 81 mg tablet,delayed 81 mg PO DAILY 02/27/24 11/18/24 History release pantoprazole 40 mg tablet,delayed 40 mg PO DAILY PRN GERD 02/27/24 Unknown H istory release (Protonix) clopidogrel 75 mg tablet (Plavix) 75 mg PO .daily #90 tabs 03/13/24 11/13/24 Rx hydrocodone-acetaminophen 5-325mg 1 - 2 tab PO DAILY PRN pain 11/07/24 Unknown History 5mg-325mg sumatriptan succinate 50 mg tablet 50 mg PO Q2H 11/28/24 Unknown History Allergy/AdvReac Type Severity Reaction Status Date / Time amoxicillin trihydrate (From AdvReac Diarrhea Verified 11/28/24 17:31 Augmentin) potassium clavulanate (From AdvReac Diarrhea Verified 11/28/24 17:31 Augmentin) Family History Other Myocardial infarction Sudden cardiac Surgical History S/P LEEP History of cystoscopy History of 3 sections S/P laparoscopy S/P inguinal hernia repair History of esophagogastroduodenoscopy (EGD) Hx of wisdom tooth extraction History of bilateral carpal tunnel release Hx of tubal ligation History of Social History household members: spouse and children Smoking Status: Former smoker substance use type: does not use Review of Systems (Anesthesia) ROS Narrative System reviewed and no additional complaints, except as documented.
--- NOTE | 2024-11-28 20:31 | OP.PCM_ITS ---
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 She was prepped and draped in the usual sterile fashion. Initially She was given MAC anesthesia but was unable to relax enough to visualize the cervix and perform the procedure. Anesthesia was converted to general and when relaxed and intubated, a weighted speculum was placed in the vagina. The cervix was grasped with a long allis clamp and using 1-0 vicryl, was suture around the os of the cervix in a running locked fashion. A second 1-0 vicryl was used to tie off additional areas of bleeding. The vagina was irrigated with saline. The cervix was then cauterized deep in the endocervix due to the appearance of further bleeding. Once hemostasis was achieved the procedure was ended. The patient tolerated the procedure well. Sponge, lap, and needle counts were correct x 2. Surgical Findings: bleeding from edges of the cervix Complications Complications: No Admit VTE Documentation VTE Present on Admission: No VTE Pharm Prophylaxis ordered?: No
[2024-11-28] MEDS: Lactated Ringers 1,000 ML 15 ML IV (20:35)
--- NOTE | 2024-11-28 20:44 | PCM.POST.ANE ---
Anesthesia: Postop Eval I Current Vital Signs Temperature: 98.1 F Pulse Rate: 87 Blood Pressure: 94/54 Respiratory Rate: 19 Pulse Ox: 95 Assessment Airway patent: Yes Spontaneous unlabored respirations: Yes nausea: No Vomiting: No Anesthesia Complication: No Fluid Hydration Crystalloid volume administer (ml): 900 Total IV fluid infused: 900 Progress Note Anesthesia document: Postop Eval 1 completed: Yes
--- NOTE | 2024-11-28 20:45 | POSTOPAN2_ITS ---
Anesthesia Postop Eval I Sum Postop Eval Completion status Anesthesia document: Postop Eval 1 completed: Yes Anesthesia Postop Eval I Summary Anesthesia Postop Eval I Summary: Anesthesia Postop Eval I: Assessment Summary Airway patent Yes 11/28/24 20:44 VC++ [email or web address] Spontaneous unlabored Yes 11/28/24 20:44 VC++ [email or web address] respirations Mental status nausea No 11/28/24 20:44 VC++ [email or web address] Vomiting No 11/28/24 20:44 VC++ [email or web address] Anesthesia Postop Eval I: Fluid Summary Crystalloid volume administer 900 11/28/24 20:44 VC++ [email or web address] (ml) Colloids volume administered ( ml) Blood Product volume administered (ml) Total IV fluid infused 900 11/28/24 20:44 VC++ [email or web address].[email or web address] Anesthesia Postop Eval I: Summary Notes Anesthesia Complication No 11/28/24 20:44 VC++ [email or web address] Anesthesia Complication Comment: Post-operative progress note Anesthesia: Postop Eval II Evaluation Mental status: Awake Pain Level: 0 nausea: No Vomiting: No
--- NOTE | 2024-11-28 20:45 | PCM.POSTANE2 ---
Anesthesia Postop Eval I Sum Postop Eval Completion status Anesthesia document: Postop Eval 1 completed: Yes Anesthesia Postop Eval I Summary Anesthesia Postop Eval I Summary: Anesthesia Postop Eval I: Assessment Summary Airway patent Yes 11/28/24 20:44 HARD ROCK DRILL OPERATOR.[email or web address] Spontaneous unlabored Yes 11/28/24 20:44 HARD ROCK DRILL OPERATOR.[email or web address] respirations Mental status nausea No 11/28/24 20:44 HARD ROCK DRILL OPERATOR.JCOTE Vomiting No 11/28/24 20:44 HARD ROCK DRILL OPERATOR.JCOTE Anesthesia Postop Eval I: Fluid Summary Crystalloid volume administer 900 11/28/24 20:44 HARD ROCK DRILL OPERATOR.JCOTE (ml) Colloids volume administered ( ml) Blood Product volume administered (ml) Total IV fluid infused 900 11/28/24 20:44 HARD ROCK DRILL OPERATOR.JCOTE Anesthesia Postop Eval I: Summary Notes Anesthesia Complication No 11/28/24 20:44 HARD ROCK DRILL OPERATOR.JCOTE Anesthesia Complication Comment: Post-operative progress note Anesthesia: Postop Eval II Evaluation Mental status: Awake Pain Level: 0 nausea: No Vomiting: No
--- NOTE | 2024-11-28 21:01 | DCINST_ITS ---
Discharge Instructions Diet Discharge Diet: No restrictions DC O2, CPAP, BIPAP needs Home O2 Discharge instructions: No Dressing / Incision Discharge Activity: May Drive (while taking narcotic pain mediations.) and May Shower May resume sexual activity in: 6 weeks Dressing / Incision Call your doctor if your incision/area has: Sudden Increased Bleeding and Foul Smelling Discharge Call your doctor if you observe: Fever of 101 or Higher and Using more than 1 pad per hour Suture Line Care: Avoid Pulling/Pushing (no more than 10 pounds ) Follow Up Care Please Follow Up With: Sherri Garcia DO When: Call [phone] for follow-up appointment. Test Results: call for follow up in 1 week Discharge Plan Admission Primary Reason for Your Visit: suture and cautery of cervix Attending Provider: Sherri Garcia Primary Care Provider: Delta Pompa Instructions Print Language: [place] Discharge Orders/Prescriptions Prescriptions: Continued pantoprazole [Protonix] 40 mg tablet,delayed release (DR/EC) 40 mg PO DAILY PRN (Reason: GERD) escitalopram oxalate 10 MG tablet 20 mg PO DAILY hydrocodone-acetaminophen 5-325 mg tablet 1 - 2 tab PO DAILY PRN (Reason: pain) sumatriptan succinate 50 mg tablet 50 mg PO Q2H Held clopidogrel [Plavix] 75 mg tablet 75 mg PO .daily Qty: 90 3RF Hold Instructions: Resume on 12/09/24. aspirin 81 mg tablet,delayed release (DR/EC) 81 mg PO DAILY Hold Instructions: Resume on 12/09/24. Referrals / Follow Up: Delta Pompa MD [Primary Care Provider] - Disposition Disposition (needs filled in before D/C Order can be placed): Home, Self Care
== END 2024-11-28 21:42 | disposition home or self-care (01) ==
LOC: ED 18:22 → SDC 18:48 → AC 18:49
PROVIDERS: Physician Assistant; Emergency Provider Emergency Medicine; PCP Family Medicine; Referring Provider Obstetrics & Gynecology; Visit Provider Obstetrics & Gynecology
PROC: (CPT 58120; principal; 2024-11-28 19:00)
DX: N99.820 Postprocedural hemorrhage of a genitourinary system organ or structure following a genitourinary system procedure (principal); E87.6 Hypokalemia; D64.9 Anemia, unspecified; R00.0 Tachycardia, unspecified; K21.9 Gastro-esophageal reflux disease without esophagitis; F41.9 Anxiety disorder, unspecified; G43.909 Migraine, unspecified, not intractable, without status migrainosus; Z88.0 Allergy status to penicillin; Z79.02 Long term (current) use of antithrombotics/antiplatelets; Z79.82 Long term (current) use of aspirin; Z87.442 Personal history of urinary calculi; Z79.899 Other long term (current) drug therapy; Z87.891 Personal history of nicotine dependence
CPT/HCPCS: 57720; 00940; 80048; 84703; 85025; 86850; 86900; 86901; 99285; A4216; J2405

== ENCOUNTER → 2024-12-02 | Outpatient (CLI) | payer BC, SELFPAY ==
--- NOTE | 2024-12-02 13:21 | MRI_ITS ---
MR Pelvis Female WO/W Contrast 12/02/2024 2:08 PM COMPARISON: 11/14/2023 CLINICAL HISTORY: pelvic pain. hx of pelvic congestion syndrom and embolization. TECHNIQUE: Multiplanar T1 and T2 weighted, diffusion and dynamic post-gadolinium images were obtained through the pelvis before and after administration of 15 cc of IV Clariscan. FINDINGS: Uterus: Retroflexed. Measures 6 cm in length. Otherwise unremarkable. Endometrium: 4 mm in thickness. No focal abnormalities seen. Cervix: Multiple nabothian cysts. Right ovary: Unremarkable Left ovary: Unremarkable Free fluid: Trace free fluid in the cul-de-sac. Vasculature: Prominent parametrial vessels. Bones: No suspicious lesions MRI/Pelvis W/WO Contrast IMPRESSION: Findings consistent with known pelvic congestion syndrome. Electronically Signed: Delta Hector MD at 8:41 EST ,
== END | disposition home or self-care (01) ==
LOC: MRI 13:14
PROVIDERS: PCP Family Medicine; Referring Provider Family Medicine; Visit Provider Family Medicine
DX: N94.89 Other specified conditions associated with female genital organs and menstrual cycle (principal)
CPT/HCPCS: 72197; A9575

== ENCOUNTER → 2024-12-06 | Outpatient (CLI) | payer BC, SELFPAY | END | disposition home or self-care (01) | LOC: LABSPEC 14:09 | PROVIDERS: PCP Family Medicine; Referring Provider Obstetrics & Gynecology; Visit Provider Obstetrics & Gynecology | DX: R30.0 Dysuria (principal) | CPT/HCPCS: 87086; 87088 ==

== ENCOUNTER 2025-01-28 07:20 | Day surgery (SDC) | payer BC, SELFPAY ==
[2025-01-24 14:01] LABS: International Normalized Ratio 0.9; Prothrombin Time (Protime)PT. 12.8 SECONDS (11.7-14.9)
[2025-01-24 14:02] LABS: Partial Thromboplast Time 26.7 Seconds (24.1-36.2)
[2025-01-24 14:29] LABS: Magnesium 2.1 mg/dL (1.5-2.2)
[2025-01-28] VITALS (13 sets, daily range): BP systolic 71–112; BP diastolic 44–67; PULSE 70–86; RESP 10–17; TEMP 35.9–36.9; O2SAT 95–100; BMI 29.7
[2025-01-28 07:51] LABS: Internal QC Validated? YES +Cl - CLEAR BKGD; Pregnancy, Urine Negative Negative
[2025-01-28] MEDS: Lactated Ringers 1,000 ML 40 ML IV (08:06)
[2025-01-28] MEDS: Gabapentin 600 MG Tablet PO (08:07)
[2025-01-28] MEDS: Acetaminophen 500 MG Tablet 1000 MG PO (08:07)
[2025-01-28] MEDS: Magnesium 1 GM over 15 mins IV (08:07)
[2025-01-28] MEDS: Celecoxib 200 MG Capsule 400 MG PO (08:07)
[2025-01-28] MEDS: Phenazopyridine 95 MG Tablet 190 MG PO (08:07)
[2025-01-28] MEDS: Gentamicin IV 260 MG in Dextrose 5%-Water (50mL Bag) 50 ML 100 MG IVPB (08:08)
--- NOTE | 2025-01-28 08:19 | PCM.PRE.AN2 ---
ASA Classification* ASA Classification ASA Classification: 3 (Hx pelvic congestion syndrome, s/p bilateral iliac artery stents placed 03/13. ) Assessment & Plan Anesthesia* Anesthesia Assessment Anesthesia Assessment: Discussed sedation and/or anesthesia options, risks, benefits, and alternatives with patient/parents/legal guardian/POA. Questions invited. The patient/parents/legal guardian/POA seems to understand and agrees to proceed with anesthesia plan. Reviewed the physical assessment, medical history, allergy history and patient home medications list prior to surgery/procedure/anesthetic and documented any changes. Performed airway and anesthesia risk assessments. Anesthesia Type Anesthesia Type: General History Source History Obtained from:: Patient and Chart Anesthesia Focused Assessment* Temperature: 98.5 F Pulse Rate: 86 Blood Pressure: 112/67 Respiratory Rate: 16 Pulse Ox: 100 Oxygen Delivery Method: Room Air Airway Assessment Mouth opens: >3 cm Mallampati Score: I Teeth Condition: Intact Neck Range of motion (ROM): Full ROM Focused Labs Anesthesia Preop lab: CBC WBC 6.7 K/mm3 (4.4-11.0) 11/28/24 17:45 11/28/24 RBC 3.70 M/mm3 (4.2-5.4) L 11/28/24 17:45 11/28/24 Hgb 11.6 g/dL (12.0-15.0) L 11/28/24 17:45 11/28/24 Hct 33.8 % (37-47) L 11/28/24 17:45 11/28/24 Plt Count 302 K/mm3 (150-450) 11/28/24 17:45 11/28/24 CHEMISTRY Potassium 3.3 mmol/L (3.5-5.1) L 11/28/24 17:45 11/28/24 Sodium 137 mmol/L (136-145) 11/28/24 17:45 11/28/24 Magnesium 2.1 mg/dL (1.5-2.2) 01/24/25 13:02 01/24/25 BUN 9 mg/dL (7-18) 11/28/24 17:45 11/28/24 Creatinine 0.74 mg/dL (0.55-1.02) 11/28/24 17:45 11/28/24 Glucose 129 mg/dL (74-106) H 11/28/24 17:45 11/28/24 TSH 1.09 uIU/mL (0.358-3.74) 04/10/21 16:22 04/10/21 COAG PT 12.8 SECONDS (11.7-14.9) 01/24/25 13:01 01/24/25 Urine Test Negative Negative 01/28/25 07:30 01/28/25 Pre-Assessment Diagnosis/Proposed Procedure Planned Operative Procedure(s): TOTAL LAPAROSCOPIC ROBOTIC HYSTERECTOMY BILATERAL SALPIINGECTOMY, CYSTOSCOPY Anesthesia History 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 When Was Last Pacemaker Check QUESTION #4 FULL TEXT: You/Your Family Experience fever (hyperthermia) with Anesthesia Any additional information?: No Last Oral Intake Last Oral intake: Last Oral Intake NPO since 06:00 01/28/25 07:52 Meds taken in AM with sips of No 01/28/25 07:52 water? Meds patient instructed to take am of surgery Any additional information?: Yes Meds patient instructed to take am of surgery: Ensure taken at 6 AM PONV PONV - quality control auditor: PONV - quality control auditor Female Yes 01/14/25 09:09 HX of Motion Sickness No 01/14/25 09:09 HX of N/V After Surgery No 01/14/25 09:09 Non-Smoker Yes 01/14/25 09:09 Duration of Surgery greater Yes 01/14/25 09:09 than 60 minutes Number of Risk Factors 3 01/14/25 09:09 PONV Score Moderate Risk 01/14/25 09:09 Any additional information?: No Height & Weight Height & Weight: Anesthesia: Height & Weight Height 5 ft 3 in 01/28/25 07:52 Weight: 76 kg 01/28/25 07:52 Body Mass Index (BMI) 29.7 01/28/25 07:52 Respiratory Assessment Respiratory Assessment - quality control auditor: Respiratory Tract Infection Hx - quality control auditor Hx Respiratory Tract Infection No 01/14/25 09:09 STOP Sleep Apnea STOP Sleep Apnea - quality control auditor: STOP Sleep Apnea - quality control auditor Hx Hypertension No 01/14/25 09:09 Hx Sleep Apnea No 01/14/25 09:09 CPAP No 11/28/24 20:37 BIPAP Do you snore loudly (louder No 01/14/25 09:09 than talking or can be heard Do you often feel tired/ No 01/14/25 09:09 fatigued/ sleepy during daytime? Has anyone observed you stop No 01/14/25 09:09 breathing during sleep? STOP Results Negative 01/14/25 09:09 QUESTION #5 FULL TEXT : Do you snore loudly (louder than talking or can be heard through closed doors)? Any additional information?: No Tobacco Use History Tobacco Use History - quality control auditor: Tobacco Use History - quality control auditor Tobacco Use Cigarettes 04/10/21 16:48 Smoking Status Former smoker 01/14/25 09:09 Hx Tobacco Use No 01/14/25 09:09 Years Smoking Packs Smoked per Day Smoking Cessation Date was No - quit smoking greater 01/14/25 09:09 within the last 15 years than 15 years ago Hx Smoking Cessation Date 11/20/06 01/14/25 09:09 Hx Smoking Cessation No 01/14/25 09:09 Counseling Any additional information?: No Hematologic Medial History Hematologic Hx - quality control auditor: 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 Specify any problems Hx of Preganancy in last 3 No 01/14/25 09:09 Months Nurse Filling Out Transfusion [email or web address] 01/14/25 09:09 & Questions: Date: 01/14/25 01/14/25 09:09 Time: 09:18 01/14/25 09:09 Patient unable to answer at this time (ie. confused, unrespo Any additional information?: No /Reproduction History /Reproductive History - quality control auditor: /Reproductive Hx- quality control auditor Hx Now No 01/14/25 09:09 Gestational Age (in weeks): EDC: Hx Hx Para Hx Section SAB No 01/20/25 15:40 Any additional information?: No Active Medications Active Medications: Current Medications Generic Name Dose Route Start Last Admin Trade Name Freq PRN Reason Stop Dose Admin Acetaminophen 1,000 mg 01/28/25 09:30 01/28/25 08:07 Acetaminophen 500 Mg Tablet PO 01/28/25 09:31 1,000 mg PREOP ONE Administration Celecoxib 400 mg 01/28/25 09:30 01/28/25 08:07 Celecoxib 200 Mg Capsule PO 01/28/25 09:31 400 mg X1 ONE Administration Gabapentin 600 mg 01/28/25 09:30 01/28/25 08:07 Gabapentin 600 Mg Tablet PO 01/28/25 09:31 600 mg PREOP ONE Administration Lactated Ringer's 1,000 mls @ 40 mls/hr 01/28/25 09:30 01/28/25 08:06 IV 40 mls/hr .Q25H MADHAVI Administration Clindamycin Phosphate 900 mg in 50 mls @ 75 mls/hr 01/28/25 09:30 Cleocin IV 01/28/25 10:09 PREOP ONE Gentamicin Sulfate 260 mg/ 56.5 mls @ 100 mls/hr 01/28/25 09:30 01/28/25 08:08 Dextrose IVPB 01/28/25 10:03 100 mls/hr PREOP ONE Administration Magnesium Sulfate 1 gm/ 102 mls @ 408 mls/hr 01/28/25 09:30 01/28/25 08:07 Dextrose IV 01/28/25 09:44 408 mls/hr X1 ONE Administration Insulin Human Lispro 0 unit 01/28/25 09:30 Insulin Lispro 100 Unit/Ml Insuln.Pen SC 01/28/25 18:00 Q4H PRN PRN BG >/= 180, SEE PROTOCOL Protocol Ondansetron HCl 4 mg 01/28/25 09:30 Ondansetron 4 Mg/2 Ml Vial IV 01/28/25 09:31 X1 ONE Phenazopyridine HCl 190 mg 01/28/25 09:30 01/28/25 08:07 Phenazopyridine 95 Mg Tablet PO 01/28/25 09:31 190 mg X1 ONE Administration PFSH Medical History RODRIGO II (cervical intraepithelial neoplasia II) High cholesterol Migraine headache Dietary restriction Gastric reflux History of echocardiogram Kidney stone Carpal tunnel syndrome Anxiety GERD (gastroesophageal reflux disease) Former smoker Hyperlipemia Home Medications ?Medication ?Instructions ?Recorded ?Last Taken ?Type escitalopram oxalate 10 mg tablet 20 mg PO QHS 11/25/20 Unknown History aspirin 81 mg tablet,delayed 81 mg PO DAILY 02/27/24 01/26/25 History release hydrocodone-acetaminophen 5-325mg 1 - 2 tab PO DAILY PRN pain 11/07/24 Unknown History 5mg-325mg sumatriptan succinate 50 mg tablet 50 mg PO Q2H PRN migraine headache 11/28/24 Unknown History clopidogrel 75 mg tablet (Plavix) 75 mg PO DAILY 01/14/25 01/20/25 History Allergy/AdvReac Type Severity Reaction Status Date / Time amoxicillin trihydrate (From AdvReac Diarrhea Verified 01/28/25 07:51 Augmentin) potassium clavulanate (From AdvReac Diarrhea Verified 01/28/25 07:51 Augmentin) Family History Other Myocardial infarction Sudden cardiac Surgical History H/O vaginal surgery S/P LEEP History of cystoscopy History of 3 sections S/P laparoscopy S/P inguinal hernia repair History of esophagogastroduodenoscopy (EGD) Hx of wisdom tooth extraction History of bilateral carpal tunnel release Hx of tubal ligation History of Social History household members: spouse and children Smoking Status: Former smoker substance use type: does not use Prior Cardiac Testing/Procedures Prior Cardiac Testing/Procedures: Stenting Addt'l Information Additional Findings: Plavis stopped on last Monday (january 20) and aspirin stopped 2 days ago Review of Systems (Anesthesia) ROS Narrative System reviewed and no additional complaints, except as documented. Physical Exam Const alert and oriented x3 Resp normal respiratory effort, normal air movement and clear to auscultation bilaterally Cardio regular rate, regular rhythm, no murmurs and diaphoretic
[2025-01-28 08:33] LABS: Bedside Glucose 126 mg/dL (74-106)
--- NOTE | 2025-01-28 09:30 | UT_PTH ---
PATIENT: ALBINA AGUSTIN [place] [facility] [id number] AGE/SX: 39/F ROOM: RE01/28/[address]: Dr. Sherri Garcia DO : 1985 BED: DIS: 01/28/2025 SPEC #: [id number] RECD: 01/28/25 13:44 STATUS: DENISHA SO #: [id number] LINDSAY: 01/28/25 09:[address]: Sherri Garcia DEPT: SURGICAL PATHOLOGY RECD BY: Choco Lopez ENTERED: 01/28/25 13:45 SP TYPE: UTERUS OTHR DR: Dr. Delta Pompa MD Tissues: Uterus, NOS Procedures: Surgery Specimen Level V HEADER OPERATION: ERAS, total laparoscopic robotic hysterectomy, bilateral salpingectomy, cystoscopy PRE-OP DIAGNOSIS: Pelvic pain TISSUE SUBMITTED: Uterus and bilateral fallopian tubes MICROSCOPIC DIAGNOSIS UTERUS WITH BILATERAL FALLOPIAN TUBES, HYSTERECTOMY WITH BILATERAL SALPINGECTOMY: Cervix: Nabothian cysts, chronic inflammation and multinucleate giant cell reaction to suture materialEndometrium: BasalMyometrium: Hyalinization of blood vessels (mostly veins), thickened arterial wallsFallopian tubes: Bilateral completely transected fallopian tubes with benign Breann tumors/cystsMikey Knight MD, 02/02/2025 MICROSCOPIC DESCRIPTION Slides are reviewed. GROSS DESCRIPTION The specimen is received in a container labeled with the patient's name, accession number and uterus and bilateral fallopian tubes. It consists of a uterus with bilateral attached fallopian tubes. After removal of the fallopian tubes, the uterus weighs 77 g and measures 7.5 x 6 x 4 cm. The serosal surface is smooth and dull. The ectocervical mucosa is focally hemorrhagic in appearance but otherwise smooth and shiny are smooth, shiny and white in color. The os is fishmouth-shaped. The uterus is opened, revealing the endocervical canal to measure 2 cm in length and to be benitez and trabecular. The endometrial canal measures 4 x 1.5 cm and is 1 mm in thickness. The endometrium is benitez and shiny. Sectioning through the myometrium reveals no lesions. The right fallopian tube measures 5 x 1.5 x 0.5 cm and has a fimbriated end. It has a smooth, shiny purple-arambula serosal surface with no lesions identified. The left fallopian tube has a metal clip, consistent with prior ligation, present on its proximal end. The left fallopian tube measures 5 x 1.3 x 0.5 cm. It also has a smooth shiny purple-arambula serosal surface with no lesions identified. RS8. EH 01/29/25 Cassette summary: A1-anterior cervix A2-posterior cervix A3-anterior endomyometrium A4-additional anterior endometrium A5-posterior endomyometrium A6-additional posterior endometrium A7-right fallopian tube with fimbriated end. A8-left fallopian tube with fimbriated end CPT: 94475, TC:4
--- NOTE | 2025-01-28 09:57 | PCM.HP.BLA ---
History and Physical Date of Admission: 01/28/25 Intake Vital Signs 12/06/2510:44 01/20/2515:39 01/20/2515:40 Height 5 ft 3 in 5 ft 3 in 5 ft 3 in Weight: 170 lb 4 oz BMI 30.1 BP 115/75 Intake Visit Reasons: TRHBS Cysto Data Communications Analyst Required: No Is patient in pain?: No Allergies amoxicillin trihydrate (From Augmentin) Adverse Reaction (Verified 01/20/25 15:39) Diarrheapotassium clavulanate (From Augmentin) Adverse Reaction (Verified 01/20/25 15:39) Diarrhea Medications ?Medication ?Instructions ?Recorded ?Confirmed ?Type escitalopram oxalate 10 mg tablet 20 mg PO QHS 11/25/20 01/20/25 History aspirin 81 mg tablet,delayed 81 mg PO DAILY 02/27/24 01/20/25 History release hydrocodone-acetaminophen 5-325mg 1 - 2 tab PO DAILY PRN pain 11/07/24 01/20/25 History 5mg-325mg sumatriptan succinate 50 mg tablet 50 mg PO Q2H PRN migraine headache 11/28/24 01/20/25 History clopidogrel 75 mg tablet (Plavix) 75 mg PO DAILY 01/14/25 01/20/25 History Post menopausal: No Patient : No : No PFSH Medical History RODRIGO II (cervical intraepithelial neoplasia II) High cholesterol Migraine headache Dietary restriction Gastric reflux History of echocardiogram Kidney stone Carpal tunnel syndrome Anxiety GERD (gastroesophageal reflux disease) Former smoker Hyperlipemia Surgical History H/O vaginal surgery S/P LEEP History of cystoscopy History of 3 sections S/P laparoscopy S/P inguinal hernia repair History of esophagogastroduodenoscopy (EGD) Hx of wisdom tooth extraction History of bilateral carpal tunnel release Hx of tubal ligation History of Family History Other Myocardial infarction Sudden cardiac Social History household members: spouse and children Smoking Status: Former smoker substance use type: does not use HPI TRHBS Cysto Details: ALBINA AGUSTIN is a 39 year old (3 sections) who presents for preoperative exam. She is also status post take back to the OR for bleeding from the LEEP site last month. Suture was used and she was asked to hold off on her blood thinners and this worked well. She takes the plavix + asa for pelvic congestion syndrome. She states that she is also now ready for a hysterectomy to better treat pelvic congestion syndrome. She has already gone through with stent placements via vascular surgery department and her most recent MRI shows no improvement in the PCS ultrasound.FINDINGS: The uterus is retroverted and is in a midline position. The uterus measures 7.7 cm x 4.9 cm x 4.4 cm. Normal uterine cervix. The endometrium measures 3.7 mm in thickness, and is hyperechoic. There is no demonstrated endometrial mass. There is no demonstrated myometrial mass. I.U.D. - The patient does not have an I.U.D. The right ovary is visualized. The right ovary measures 2.4 cm x 1.7 cm x 1.5 cm. There is no right ovarian cyst or ovarian mass. There is no visualized right adnexal mass or complex lesion. There is normal arterial and normal venous vascularity. The left ovary is visualized. The left ovary measures 2.8 cm x 2.6 cm x 1.6 cm. There is no left ovarian cyst or ovarian mass. There is no visualized left adnexal mass or complex lesion. There is normal arterial and normal venous vascularity. There is no fluid in the cul-de-sac. The pre void volume of the bladder was 280 ml. US/Pelvic w/ Transvaginal IMPRESSION: Normal female pelvis. History 3 Elective abortions Hx Para 3 Spontaneous abortions Hx # Term Pregnancies Ectopic pregnancies Hx # Pregnancies Multiple births # of living children ROS Const ROS Unobtainable: All systems reviewed & are unremarkable except as noted in H Resp Resp: Reports system reviewed and no additional complaints, except as documented; Denies cough GI GI: Reports as per HPI Psych Psych: Reports system reviewed and no additional complaints, except as documented Exam Const General: cooperative, healthy appearing, comfortable and no acute distress Resp Effort & Inspection: normal respiratory effort Skin General: no rashes or lesions noted Psych Appearance: grossly normal Speech and Movement: speech and movement normal Coding Level of Care Code Off vis,est,level 4 Diagnoses Antithrombotic drugs causing adverse effect in therapeutic use T45.525A Pelvic pain R10.2 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 Pelvic congestion syndrome N94.89 RODRIGO II (cervical intraepithelial neoplasia II) N87.1 Assessment and Plan Assessment and Plan (1) Antithrombotic drugs causing adverse effect in therapeutic use: Status: Acute (2) Pelvic pain: Status: Acute (3) Stenosis of iliac vein: Status: Acute Comment: s/p angioplasty/stent IVC, bilateral common iliac, left external iliac vein 02/21/24 (4) Pelvic congestion syndrome: Status: Chronic Comment: s/p coil embolization left ovarian vein on 07/18/24 (5) RODRIGO II (cervical intraepithelial neoplasia II): Status: Acute Plan After discussing the patient's diagnosis and treatment plan options, patient wishes to proceed with surgical management. I have discussed with the patient the risks, benefits, and alternatives of the procedure which include but are not limited to risks of anesthesia, bleeding, infection, possible damage to bowel, bladder, or surrounding vasculature which could lead to additional surgery to evaluate any complications. Patient agrees to procedure and wishes to proceed. ACOG/uptodate references given for additional information regarding procedure. plan is for total robotic hysterectomy, bs, cysto. stop plavix 1 week prior to surgery and start back up 72 hours after. stop asa 24 hours before and restart 24 hours after surgery. Patient is due for her period to start any day. she will return no later than monday for cbc to know what her hg will be prior to surgery
[2025-01-28] MEDS: Clindamycin 900 MG/50 ML BAG 75 MG IV (10:05)
--- NOTE | 2025-01-28 11:45 | PCM.OPRPT ---
Problems Associated Problem List Diagnoses (1) LALY II (cervical intraepithelial neoplasia II): (2) Menorrhagia: Multi Select Codes Urinary/Genital Urinary/Genital CPT Codes: 90149 TLH+BS/O <250gr uterus Operative Report (Standard) Operative Information Date of Procedure: 01/28/25 Pre-Operative Diagnosis: menorrhagia, LALY 2 Post-Operative Diagnosis: menorrhagia, LALY 2 Surgery/Procedure Performed: total robotic hysterectomy, bilateral salpingectomy, cystoscopy medical office clerk: Yes Transcribing Operator Head: Earle Post Tasks completed by registered nurse first assistant: Closing, Insert Trochanter and Retracting Additional senior agricultural assistant?: No Type of Anesthesia: General RN Documented Start/Stop Times: Operation Date: 01/28/25 09:30 Case Time Into Pre-Op 01/28/25 07:28 Out of Pre-Op 01/28/25 09:59 Anesthesia Start 01/28/25 10:05 Into Room 01/28/25 10:05 Procedure Start 01/28/25 10:34 Procedure Start Time: 10:34 Procedure Stop Time: 11:55 Select all DRAINS/GRAFTS/IMPLANTS that apply: None Estimated Blood Loss: 30cc Specimen collected: Yes Description of specimen(s) removed: uterus, cervix, fallopian tubes Description of surgery: Findings: 7 cm uterus, normal appearing ovaries and tubes. scar tissue over the lower uterine segment. Filshie clips on the fallopian tubes On exploration of the abdominal cavity the uterus, adnexa, bowel, and liver were found to be normal. Cystoscopy showed no evidence of leaking at approximately 250 cc of normal saline, positive ureteral orifices and jet flow are seen and no suture material was appreciated in the bladder. Specimens removed: Uterus and cervix Reason for surgery: This is a 39-year-old G3, P3 who presented to my office with history of heavy bleeding and laly 2. She is on plavix and can not use hormonal therapy. She has a history of 3 prior sections. the planned procedure is for a robotic hysterectomy the risks benefits and alternatives were discussed with the patient the patient had a clear understanding of the procedure and a consent form was signed. Procedure: The patient was placed in the dorsal low lithotomy position and prepped and draped in the normal sterile fashion both abdominally and in the perineum. Her legs were placed in stirrups a Gonzalez catheter was inserted into the urethra without difficulty. A weighted speculum was placed in the vagina and a single-tooth tenaculum was used to grasp the anterior lip of the cervix. An advincula uterine manipulator was inserted through the cervix without complication. It was then tied into place at the 2 and 10:00 locations on the cervix. Gloves were changed and attention was turned towards the abdomen. Approximately 23 cm above the pubic symphysis in the midline, and after Marcaine injection, a 8 mm incision was made. An 8 mm trocar was inserted through the laparoscope, then inserted into the abdomen under direct visualization using the laparoscope. Good abdominal placement was noted and no complications were appreciated. An air seal device was utilized to create pneumoperitoneum. At 12 cm lateral to the midline on the left and right sides 8 mm accessory ports were placed. Next a left upper quadrant 8 mm senior agricultural assistant port site was placed. The patient was placed in steep Trendelenburg position. The robot was docked. The hysterectomy was initiated first by taking down the round ligament on each side using the vessel sealer device. The broad ligament was then and taken down using the vessel sealer device. Next the bladder flap was taken down without complication. This was done using monopolar cautery to the level of the cervical vaginal junction. After the bladder flap was created, uterine vessels were then isolated and cauterized using the vessel sealer device and EndoShears. At this point the uterine vessels were taken down further starting from the ascending branch, dissecting along the edges of the cervix to the level of the cervical vaginal junction with hemostasis appreciated. The cervical vaginal junction was then using monopolar cautery in a circumferential pattern across the superior aspect of the cervix. The specimen was delivered through the vagina and sent to pathology. The remaining vaginal cuff was then closed using a V lock suture. This was performed in a running technique. Excellent hemostasis was obtained and good closure was noted. Irrigation was then performed. All operative sites were noted to be hemostatic. A cystoscopy was performed with a 70 degree cystoscope through the urethra into the bladder without complication. The bladder was instilled with approximately 250 cc of normal saline. Intraoperative images were made. Ureteral orifices and jets were identified. No suture material was appreciated in the bladder. The bladder was then drained and cystoscope was removed. The abdominal cavity was again examined using the laparoscope after the robot was undocked. All operative sites were noted to be hemostatic. The trochars were removed under direct visualization without complication and pneumoperitoneum was reduced. At this point the skin was then closed using 4-0 Monocryl subcuticular stitch and sealed with surgical glue. The patient tolerated the procedure well sponge lap and needle counts were correct x2 the patient was taken to the recovery room in stable condition. Surgical Findings: scar tissue on uterus as noted above Complications Complications: No Admit VTE Documentation VTE Present on Admission: Yes VTE Mechan Device Prophylaxis: SCD's VTE Pharm Prophylaxis ordered?: Yes
--- NOTE | 2025-01-28 11:50 | DCINST_ITS ---
Discharge Instructions Diet Discharge Diet: No restrictions DC O2, CPAP, BIPAP needs Home O2 Discharge instructions: No Dressing / Incision Discharge Activity: May Shower May resume sexual activity in: 8 weeks Weight Bearing Status: Full weight bearing Lifting Restrictions: 10 pounds for 2 weeks Dressing / Incision Call your doctor if your incision/area has: Continuous Slow Oozing, Sudden Increased Bleeding, Increased Pain/ Swelling, Increased Redness and Foul Smelling Discharge Call your doctor if you observe: Fever of 101 or Higher, Using more than 1 pad per hour, Shortness of breath, Chest pain and Uncontrolled pain Suture Line Care: Avoid Pulling/Pushing and Avoid Pinching/Bending Remove Dressing in: 1 week (if present) Cleanse incision/area with: Soap & Water and Keep Dressing Clean & Dry Follow Up Care Please Follow Up With: Sherri Garcia DO When: Call to make an appointment with your doctor for a postop visit in 2 and 6 weeks Test Results: Test results from this visit will be discussed in further detail at your follow- up appointment, if applicable. Discharge Plan Admission Primary Reason for Your Visit: hysterectomy Attending Provider: Sherri Garcia Primary Care Provider: Delta Pompa Instructions Print Language: Frisian Discharge Orders/Prescriptions Prescriptions: New hydrocodone-acetaminophen 5-325 mg tablet 1 tab PO Q4H PRN (Reason: pain) 7 Days Qty: 20 0RF ibuprofen 800 mg tablet 800 mg PO Q8H PRN (Reason: pain) Qty: 30 0RF Continued escitalopram oxalate 10 MG tablet 20 mg PO QHS Held aspirin 81 mg tablet,delayed release (DR/EC) 81 mg PO DAILY Hold Instructions: Resume on 01/31/25. clopidogrel [Plavix] 75 mg tablet 75 mg PO DAILY Hold Instructions: Resume on 01/31/25. Discontinued hydrocodone-acetaminophen 5-325 mg tablet 1 - 2 tab PO DAILY PRN (Reason: pain) No Action sumatriptan succinate 50 mg tablet 50 mg PO Q2H PRN (Reason: migraine headache) Referrals / Follow Up: Delta Pompa MD [Primary Care Provider] - Disposition Disposition (needs filled in before D/C Order can be placed): Home, Self Care
[2025-01-28] MEDS: Bupivacaine 0.25% 30 ML Vial (11:52)
--- NOTE | 2025-01-28 12:09 | PCM.POST.ANE ---
Anesthesia: Postop Eval I Current Vital Signs Temperature: 97.4 F Pulse Rate: 78 Blood Pressure: 92/57 Respiratory Rate: 14 Pulse Ox: 98 Oxygen Delivery Method: Nasal Cannula Assessment Airway patent: Yes Spontaneous unlabored respirations: Yes Mental status: Awake nausea: No Vomiting: No Anesthesia Complication: No Fluid Hydration Crystalloid volume administer (ml): 1,300 Total IV fluid infused: 1,300 Progress Note Anesthesia document: Postop Eval 1 completed: Yes
[2025-01-28] MEDS: Ondansetron 4 MG/2 ML Vial IV (12:32)
--- NOTE | 2025-01-28 12:58 | POSTOPAN2_ITS ---
Anesthesia Postop Eval I Sum Postop Eval Completion status Anesthesia document: Postop Eval 1 completed: Yes Anesthesia Postop Eval I Summary Anesthesia Postop Eval I Summary: Anesthesia Postop Eval I: Assessment Summary Airway patent Yes 01/28/25 12:10 [email or web address] Spontaneous unlabored Yes 01/28/25 12:10 [email or web address] respirations Mental status Awake 01/28/25 12:10 [email or web address] nausea No 01/28/25 12:10 [email or web address] Vomiting No 01/28/25 12:10 [email or web address] Anesthesia Postop Eval I: Fluid Summary Crystalloid volume administer 1,300 01/28/25 12:10 [email or web address] (ml) Colloids volume administered ( ml) Blood Product volume administered (ml) Total IV fluid infused 1,300 01/28/25 12:10 [email or web address] Anesthesia Postop Eval I: Summary Notes Anesthesia Complication No 01/28/25 12:10 [email or web address] Anesthesia Complication Comment: Post-operative progress note Anesthesia: Postop Eval II Evaluation Mental status: Awake Pain Level: 0 nausea: No Vomiting: No Complications Anesthesia Complication: No
--- NOTE | 2025-01-28 12:58 | PCM.POSTANE2 ---
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 Spontaneous unlabored Yes 01/28/25 12:10 MIDDLE SCHOOL [email or web address] respirations Mental status Awake 01/28/25 12:10 MIDDLE SCHOOL [email or web address] nausea No 01/28/25 12:10 MIDDLE SCHOOL [email or web address] Vomiting No 01/28/25 12:10 MIDDLE [email or web address] [email or web address] Anesthesia Postop Eval I: Fluid Summary Crystalloid volume administer 1,300 01/28/25 12:10 MIDDLE SCHOOL [email or web address] (ml) Colloids volume administered ( ml) Blood Product volume administered (ml) Total IV fluid infused 1,300 01/28/25 12:10 MIDDLE SCHOOL [email or web address] Anesthesia Postop Eval I: Summary Notes Anesthesia Complication No 01/28/25 12:10 MIDDLE [email or web address] [email or web address] Anesthesia Complication Comment: Post-operative progress note Anesthesia: Postop Eval II Evaluation Mental status: Awake Pain Level: 0 nausea: No Vomiting: No Complications Anesthesia Complication: No
[2025-01-28] MEDS: HYDROcodone Bitartrate/Apap 5/325 Tablet PO (13:32)
== END 2025-01-28 14:17 | disposition home or self-care (01) ==
LOC: SDC 07:21 → AC 07:24
PROVIDERS: Anesthesiology; PCP Family Medicine; Referring Provider Obstetrics & Gynecology; Visit Provider Obstetrics & Gynecology
PROC: 0UT90ZZ Resection of Uterus, Open Approach (ICD-10-PCS; CPT 58571; principal; 2025-01-28 09:15)
DX: N88.8 Other specified noninflammatory disorders of cervix uteri (principal); Z79.4 Long term (current) use of insulin; N92.0 Excessive and frequent menstruation with regular cycle; N87.1 Moderate cervical dysplasia; E78.00 Pure hypercholesterolemia, unspecified; Z87.891 Personal history of nicotine dependence; Z79.02 Long term (current) use of antithrombotics/antiplatelets; K21.9 Gastro-esophageal reflux disease without esophagitis; N94.89 Other specified conditions associated with female genital organs and menstrual cycle; N83.8 Other noninflammatory disorders of ovary, fallopian tube and broad ligament; N72 Inflammatory disease of cervix uteri; Z79.82 Long term (current) use of aspirin
CPT/HCPCS: 58571; S2900; 00840; 36415; 81025; 82962; 83735; 85610; 85730; 86850; 86900; 86901; 88307; J2405; J3475

== ENCOUNTER → 2025-03-12 | Outpatient (CLI) | payer BC, SELFPAY ==
[2025-03-12 16:55] LABS: Absolute Lymphocyte Count 1.48 X10^3/uL (0.83-4.51); Basophil# 0.04 X10^3/uL; Basophil% 0.8 % (0-1); Eosinophil# 0.09 X10^3/uL; Eosinophils% 1.8 % (0-5); Hematocrit 35.7 % (37-47); Hemoglobin 11.8 g/dL (12.0-15.0); Lymphocyte # 1.48 X10^3/ul (0.83-4.51); Lymphocyte % 29.1 % (19-41); Mean Corp Hgb Conc 33.1 g/dL (32-36); Mean Corpuscular Hgb 30.6 pg (27.0-32.0); Mean Corpuscular Volume 92.7 fL (81-99); Mean Platelet Vol. 10.9 fl (6.2-12.0); Monocyte# 0.44 X10^3/uL; Monocyte% 8.7 % (0-10); NRBC Flagged by Analyzer 0 % (0-5); Neutrophil # 3.02 X10^3/uL (2.7-7.7); Neutrophil % 59.4 % (47-70); Platelet Count 330 K/mm3 (150-450); RBC Distribution Width CV 13.8 % (11.6-14.6); RBC Distribution Width SD 47.2 fl (35.1-43.9); Red Blood Count 3.85 M/mm3 (4.2-5.4); White Blood Count 5.1 K/mm3 (4.4-11.0)
== END | disposition home or self-care (01) ==
PROVIDERS: PCP Family Medicine; Referring Provider Obstetrics & Gynecology; Visit Provider Obstetrics & Gynecology
DX: R23.3 Spontaneous ecchymoses (principal)
CPT/HCPCS: 36415; 85025

== ENCOUNTER → 2025-03-17 | Outpatient (CLI) | payer BC, SELFPAY ==
--- NOTE | 2025-03-17 07:55 | AAVD_ITS ---
Reason For Study Reason For Study: BIlateral iliac vein stents Inferior Vena Cava Proximal inferior vena cava measures 0.74 x 1.59 cm. in the cross-sectional axis. Proximal inferior vena cava measures 0.90 cm. in the longitudinal axis. Mid inferior vena cava measures 0.58 x 1.51 cm. in the cross-sectional axis. Mid inferior vena cava measures 0.70 cm. in the longitudinal axis. Distal inferior vena cava measures 0.80 x 2.41 cm. in the cross-sectional axis. Distal inferior vena cava measures 0.67 cm. in the longitudinal axis. The inferior vena cava has spontaneous, phasic flow throughout. Left Common Iliac Vein Left common iliac vein measures 1.04 x 1.06 cm. in the cross-sectional axis. Left common iliac vein measures 1.05 cm. in the longitudinal axis. The left common iliac vein has spontaneous, phasic flow throughout. CIV stent noted. EIV normal phasic flow noted. Right Common Iliac Vein Right common iliac vein measures 1.20 x 1.21 cm. in the cross-sectional axis. Right common iliac vein measures 1.22 cm. in the longitudinal axis. The right common iliac vein has spontaneous, phasic flow throughout. CIV stent noted. EIV normal phasic flow noted. Procedure Aorta IVC Iliac vasculature or bypass grafts [id number]. Exam performed in department. VL/Abd Aortic/IVC Duplex scan Interpretation Summary Patent inferior vena cava and bilateral iliac vein stents with normal venous fl ow pattern. Ordering Physician: Loretta Flores Referring Physician: Delta Pompa MD Performed By: Bre Hdez RVT
[2025-03-17 09:53] LABS: Cholesterol 420 mg/dL (<=200); High Density Lipoprotein 44 mg/dL; Low Density Lipoprotein Calc. 363 mg/dL; Triglycerides 69 mg/dL; Very Low Density Lipoprotein 14 mg/dL (5-40); cholesterol:hdl ratio screen 9.63
== END | disposition home or self-care (01) ==
PROVIDERS: PCP Family Medicine; Referring Provider Physician Assistant; Visit Provider Physician Assistant
DX: I87.1 Compression of vein (principal); N94.89 Other specified conditions associated with female genital organs and menstrual cycle; Z48.812 Encounter for surgical aftercare following surgery on the circulatory system; E78.49 Other hyperlipidemia
CPT/HCPCS: 36415; 80061; 93978

== ENCOUNTER 2025-07-15 09:00 | Outpatient (RCR) | payer BC, SELFPAY ==
--- NOTE | 2025-03-25 17:51 | HP.PTEVAL_ITS ---
Patient's Visit Information Visit Information Visit Information: ALBINA AGUSTIN is a 39 year old F referred to Physical Therapy by Dr. Paulino Rodriguez MD with a diagnosis of Pelvic pain. Date of Evaluation: 03/25/25 Physical Therapist: Danita Ruth Visit Plan Frequency: 2x /Week Duration: 3 Months Plan: Will see her 2 x week. Did not do pelvic floor evaluation today to determine the affects of treating her left lumbar spine on the left groin pain? Started her on press ups today at a minimum of 3-4 x day but increasing to every 2-4 hours if helpful. Explained centralization vs. peripheralization of her pain so she knows as groin gets better she may feel it more in the low back. Today did some US to left lumbar, STM , mobs, corrected left upslip and cupping. Explained proper body mechanics. To avoid flexion and limit bending and lifting. Use of towel roll in sitting (carlos. at work). Will evaluate her pelvic floor at a future visit after determining affect of treating lumbar spine for a few visits on her groin, pelvic pain. Subjective Subjective: November 2022 she woke up with pain in the left groin area. After a couple of weeks, pain wasn't improving. X-rays and CT scan didn't show anything. US showed swollen lymph nodes. They found a hernia but in surgery they couldn't find anything in April 2023. She got an MRI of pelvis which showed pelvic congestion syndrome. She was referred to Dr. Cabrera (vascular surgeon). She had a venogram and 3 stents put in in February 2024 which didn't help the pain. 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 Ovarian vein embolization where they coil off that vein which was done in June 2024. Temporarily it helped the pain for a month or so. When she would go to the bathroom she would get a stabbing in the left groin. She had another MRI to see if any changes. She was referred to Dr. Hood. 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 She had a LEEP procedure and had intense bleeding after the surgery as she is on blood thinners due to pelvic congestion syndrome. January she had hysterectomy as it was an option for treating vascular congestion syndrome. Unfortunately no improvement in her pain after the procedure. US 3 weeks ago showed everything looks good with stents. She has been on pain killers this whole time to manage this constant pain. She hasn't been on pain killers for 2 months since end of January. The pain keeps her up at night and she takes Zquil every night just to sleep. Pain is pretty constant. Feels like a heaviness. There are times the pain gets irritated. She can get sharp, stabbing pains in the left groin. Random sharp stabbing pains. She isn't sure what triggers it. She has leaking with a cough or sneeze or laughing. Stress incontinence. No pain with intercourse. No other bladder symptoms. Not much low back pain. Several years ago she was going to a chiropractor as she was having lower back pain but went away (10 years ago). She has noticed more recently some pain in the right groin. She initially had pain in the left anterior thigh pain but that has gone away (intermittent). Pain can increase with sleeping and wakes her up at night. Pain is always around 3/10 but can increase to 6/10. She doesn't do a lot for working out but she is trying to train for a 5k. She does a little bit of lifting. 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 Sitting a lot but she tries to get up and walk around a lot. 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 Pain Left groin: Pain Intensity (Out of 10): 2 Pain Intensity Range: 6 Objective Objective: POPDI-6 7, CRAD-8 0, JACKIE-6 8 Lumbar range of motion: Flexion WNL no change Extension no change Right SB no change Sonali SB no change Right ROT no change Left ROT no change Left upslip, Left PSIS stuck with forward flexion Left rotation L2-L5 very tender, no piriformis tenderness, Moderate left lumbar tightness Left great toe extension 4-/5, otherwise good LE strength Negative Slump test and seated SLR test, Negative Fabere, Negative supine SLR test Special Tests L/S Slump test left side: Negative L/S Slump test right side: Negative Goals Goal 1:: Kat will be able to sit for up to 2 hours at a time to do work related activities without feeling pelvic pain or low back pain. Goal Time Frame: 8-12 Weeks Goal 2:: Kat will be able to bend repetitively to do housework without low back pain or pelvic pain during or after. Goal Time Frame: 8-12 Weeks Goal 3:: Kat will be able to stand for up to 1 hour at a time to do kitchen activities such as washing dishes without pelvic pain. Goal Time Frame: 6-8 Weeks Goal 4:: Kat will be able to cough or sneeze without leaking. Goal Time Frame: 8-12 Weeks Goal 5:: Kat will be able to sleep thru the night without being awakened by groin, pelvic pain and without needing to take Zquil to sleep. Goal Time Frame: 2-4 Weeks Rehabilitation Potential Physical Therapy Diagnosis: Pelvic pain, Low back pain, stress incontinence Rehabilitation Potential: Good Anticipated Interventions Patient/Client Instruction: Educate patient on: Condition and Plan of Care For the Purpose of:: To decrease pain, To improve muscle performance and motor function, To improve performance and independence with ADL's, To improve health and function and To improve self management Therapeutic Exercise to Include: Strength training, Dynamic Lumbar Stabilization and Long Exercises For the Purpose of:: To decrease pain, To improve muscle performance and motor function, To increase tolerance to activity/condition/position, To improve health and function and To improve self management Manual Therapy Techniques to Include: Trigger point massage, Mobilization, Functional dry needling and Soft tissue mobilization For the Purpose of:: To decrease pain, To improve muscle performance and motor function, To increase tolerance to activity/condition/position, To improve ability of physical actions for home/community/work/leisure, To improve self management and To improve tolerance to ADL's Ultrasound (thermal/non thermal): Yes Pelvic traction prone: Yes For the Purpose of:: To decrease pain, To improve muscle performance and motor function, To improve health and function, To improve self management and To improve tolerance to ADL's Text: Thank you for the opportunity to evaluate your patient. For Medicare and Medicare HMO plans, please review the plan of care and approve it. It will need to be FAXED BACK to us at [phone] for Medicare purposes. For Medicare only, by signing this I certify the plan of care. Please let me know if there are questions or concerns regarding this plan of care. Physician Signature: Date:__
== END 2025-07-15 19:00 | disposition home or self-care (01) ==
LOC: PT 09:00
PROVIDERS: PCP Family Medicine; Referring Provider Anesthesiology; Visit Provider Anesthesiology
DX: R10.2 Pelvic and perineal pain (principal)
CPT/HCPCS: 97035; 97110; 97112; 97140; 97162; 97530

== ENCOUNTER → 2025-07-22 | Outpatient (CLI) | payer BC, SELFPAY ==
--- NOTE | 2025-07-22 17:11 | MRI_ITS ---
PROCEDURE: LOWER EXT JOINT ONLY (ROUTINE) 07/23/2025 REASON FOR EXAM: LEFT HIP PAIN TECHNIQUE: Procedure Code: MRILEJ Modality: MR Procedure: LOWER EXT JOINT ONLY (ROUTINE) Multiplanar and multisequence images were obtained without IV contrast administration. COMPARISON: COMPARISON : none FINDINGS: The femoral head and neck are unremarkable. There is no femoral head collapse. The femoroacetabular joints space is maintained. Minimal hip joints effusion. High signal of the greater trochanteric bursae. No marrow infiltrative lesions The visualized muscles of the hip joint appear normal. Under distension of the urinary blader. No pathologically enlarged lymph nodes. No pelvic collections. MRI/Lower Ext Joint Only (Routine) IMPRESSION: Unremarkable study of the hips with minimal joints effusion and small greater t rochanteric bursitis. Reading [facility] [id number]
== END | disposition home or self-care (01) ==
PROVIDERS: PCP Family Medicine; Referring Provider Family Medicine; Visit Provider Family Medicine
DX: M25.552 Pain in left hip (principal)
CPT/HCPCS: 73721

== ENCOUNTER 2025-07-31 07:23 | Outpatient (RCR) | payer SELFPAY | END 2025-08-19 23:59 | LOC: NS 07:23 | PROVIDERS: PCP Family Medicine; Referring Provider Family Medicine; Visit Provider Family Medicine | DX: Z71.3 Dietary counseling and surveillance (principal); E66.9 Obesity, unspecified | CPT/HCPCS: 97802 ==

== ENCOUNTER → 2025-09-29 | Outpatient (CLI) | payer BC, SELFPAY ==
--- NOTE | 2025-09-29 07:57 | AAVD_ITS ---
Reason For Study Reason For Study: HX Bilateral CIV Stent Inferior Vena Cava Proximal inferior vena cava measures 0.73 x 0.99 cm. in the cross-sectional axis. Proximal inferior vena cava measures 0.70 cm. in the longitudinal axis. Mid inferior vena cava measures 0.81 x 1.37 cm. in the cross-sectional axis. Mid inferior vena cava measures 0.76 cm. in the longitudinal axis. Distal inferior vena cava measures 1.04 x 1.29 cm. in the cross-sectional axis. Distal inferior vena cava measures 0.96 cm. in the longitudinal axis. The inferior vena cava has spontaneous, phasic flow throughout. Left Common Iliac Vein Left common iliac vein measures 1.08 x 1.09 cm. in the cross-sectional axis. Left common iliac vein measures 1.12 cm. in the longitudinal axis. The left common iliac vein has spontaneous, phasic flow throughout. Lt CIV Stent Noted. Right Common Iliac Vein Right common iliac vein measures 1.26 x 1.20 cm. in the cross-sectional axis. Right common iliac vein measures 1.20 cm. in the longitudinal axis. The right common iliac vein has spontaneous, phasic flow throughout. Rt CIV Stent Noted. Procedure Aorta IVC Iliac vasculature or bypass grafts [id number]. The exam was diagnostic. Exam performed in department. VL/Abd Aortic/IVC Duplex scan Interpretation Summary Inferior vena cava and bilateral iliac vein stents patent with normal venous fl ow pattern. Ordering Physician: Loretta Flores Referring Physician: Delta Pompa Performed By: Carlos Corona, RVT
== END | disposition home or self-care (01) ==
PROVIDERS: PCP Family Medicine; Referring Provider Physician Assistant; Visit Provider Physician Assistant
DX: I87.1 Compression of vein (principal); Z48.812 Encounter for surgical aftercare following surgery on the circulatory system
CPT/HCPCS: 93978